=== PATIENT | female | born 1940 | race African-American/Black ===

== ENCOUNTER 2021-05-18 14:44 | Emergency (ER) | payer MEDICARE, MEDICAID, SELFPAY ==
--- NOTE | ~2021-05-18 | CT_ITS ---
EXAMINATION: CT brain wo con DATE: 05/18/2021 15:39 INDICATION: Confusion. Head injury. TECHNIQUE: Computed tomography (CT) of the head was performed without intravenous contrast. The mA wa s adjusted according to patient size. Iterative reconstruction technique was employed. The dose-lengt h product was 605.33 mGy-cm. COMPARISON: None FINDINGS: There are scattered areas of low attenuation in the cerebral white matter. There is no intr acranial hemorrhage, acute infarction, or abnormal intracranial mass lesion. The ventricles are sang l in size. There are likely changes of ocular lens replacement surgeries. There is right frontal scal p soft tissue swelling. IMPRESSION: 1. Mild nonspecific cerebral white matter disease, which likely represents chronic small vessel ische yen disease. Reviewed, dictated and finalized at location A. PERSON IMPRESSION: 1. Mild nonspecific cerebral white matter disease, which likely represents chronic specialist blaze small vessel ischemic disease.
--- NOTE | ~2021-05-18 | CT_ITS ---
EXAMINATION: CT cervical spine wo con EXAM DATE: 05/18/2021 15:39 INDICATION: fall, altered mental status . TECHNIQUE: Spiral CT of the cervical spine was performed without contrast. Axial images were reviewe d. Coronal and sagittal reformatted images cervical spine were also reviewed. The dose-length produc t (DLP) for this examination was 362.89 mGy-cm. The exposure was tailored according to patient size (auto mA exposure control), and iterative reconstruction (ASIR) was used as additional dose reduction technique. There is no prior study for comparison. FINDINGS: Lung apices are clear. There is no evidence of acute cervical fracture. The odontoid proce ss is intact. Pre-dens space is normal. Prevertebral soft tissue is normal. There are no soft tiss ue abnormalities identified. There is no disc space widening or traumatic vertebral body subluxation suspected. There is moderate to severe cervical disc disease, overall moderate arthropathy. A deta iled level by level evaluation of spondylosis can be added as addendum if requested. IMPRESSION: 1. No acute cervical fracture. 2. Spondylosis. Reviewed, dictated and finalized at location A. USSION INSTRUMENT REPAIRER
--- NOTE | ~2021-05-18 | XR_ITS ---
EXAMINATION: XR chest 1V EXAM DATE: 05/18/2021 15:41 INDICATION: Transient alteration of awareness. TECHNIQUE: Portable AP frontal chest x-ray was obtained. There is no prior study for comparison. FINDINGS: The lungs are clear. There are no pleural effusions. Cardiac silhouette is prominent but magnified on this AP technique. There is no pneumothorax suspected. The bones and soft tissues are unremarkable. IMPRESSION: No acute cardiopulmonary findings. Reviewed, dictated and finalized at location A. ANGE SPECIALIST
[2021-05-18 14:42] VITALS: BP 153/74; PULSE 62; RESP 16; TEMP 36.6; O2SAT 100
[2021-05-18 15:01] VITALS: BP 153/60; PULSE 59; RESP 11; O2SAT 100
--- NOTE | 2021-05-18 15:17 | ECG_ITS ---
Measurements Intervals [place] Rate: 61 P: 66 CO: 235 QRS: -27 QRSD: 154 T: 71 QT: 472 QTc: 477 Interpretive Statements SINUS RHYTHM WITH FIRST DEGREE AV BLOCK RIGHT BUNDLE BRANCH BLOCK POSSIBLE LEFT VENTRICULAR HYPERTROPHY MINIMAL Q WAVES- ANTERIOR LEADS HIGH LATERAL INFARCT, AGE INDETERMINATE BASELINE ARTIFACT- I, V6 ABNORMAL ECG Electronically Signed On 05-18-2021 16:10:19 LEVEL VIAL GRINDER by Jose Guadalupe Camilo D.O.
--- NOTE | 2021-05-18 15:34 | ED.FALL ---
HPI - Fall General Chief Complaint: Fall Stated Complaint: fall Time Seen by Provider: 05/18/21 15:07 Source: EMS Mode of arrival: EMS Limitations: dementia History of Present Illness HPI Narrative: This is a 80 year old female who presents from care home for evaluation of an unwitnessed fall. Patient was found with mid forehead hematoma at care home. EMS reports patient is at her baseline. Patien is oriented to person. She denies any complaints. Related Data Allergies Allergy/AdvReac Type Severity Reaction Status Date / Time Sulfa (Sulfonamide Allergy Unknown Verified 05/18/21 17:09 Antibiotics) Review of Systems Review of Systems: All systems reviewed & are unremarkable except as noted in HPI and below [facility] Past Medical History Medical History (Updated 05/18/21 @ 18:15 by Mari Sanders MD) Anxiety Chronic diastolic heart failure Chronic kidney disease Dementia GERD (gastroesophageal reflux disease) Glaucoma Hyperlipidemia Hypertension Exam Const: General: alert Other: oriented to person and place HENMT: Head: normocephalic and other (small bump midforehead) Ears: external ears normal Face and sinus: normal facial exam, sinuses nontender and face symmetric Mouth: Yes moist mucous membranes and Yes other (large tongue but does not seem edematous) Teeth and gingiva: edentulous Throat: uvula midline Eyes: Pupils: Equal, round and reactive pupils present EOM: EOMs intact bilaterally Resp: Effort & Inspection: normal respiratory effort and no retractions Auscultation: clear to auscultation bilaterally Cardio: Rate: regular rate Rhythm: regular rhythm Heart sounds: no murmurs GI: GI Palp: Yes Soft to palpation, No Tenderness to palpation present (GI) and No Guarding due to palpation present (GI) Auscultation: normal bowel sounds Neuro: General: moves all extremities, no meningeal signs and CN's II-XI intact bilaterally Extrem: General: normal to inspection Psych: Mental Status: mental status grossly normal Affect: normal affect Course Reevaluation(s) Reevaluation #1: Patient is at baseline per EMS. Patient will be discharged Date: 05/18/21 Time: 18:13 Vital Signs Vital signs: Vital Signs Temperature 97.8 F 05/18/21 14:42 Pulse Rate 62 05/18/21 14:42 Respiratory Rate 16 05/18/21 14:42 Blood Pressure 153/74 H 05/18/21 14:42 Pulse Oximetry 100 05/18/21 14:42 Temperature 97.8 F 05/18/21 14:42 Pulse Rate 64 05/18/21 19:01 Respiratory Rate 18 05/18/21 19:01 Blood Pressure 180/80 H 05/18/21 19:01 Pulse Oximetry 98 05/18/21 19:01 MDM - Fall Lab Data Attestation: I reviewed the patient's lab results. Result diagrams: 05/18/21 15:30 05/18/21 15:30 Labs: Lab Results 05/18/21 05/18/21 05/18/21 Range/Units 15:28 15:30 15:30 WBC 4.2 L (4.5-10.0) K/mm3 RBC 3.09 L (4.2-5.4) M/mm3 Hgb 9.3 L (12.0-15.0) g/dL Hct 28.6 L (37.0-47.0) % MCV 92.6 (80-100) fl MCH 30.1 (26-34) pg MCHC 32.5 (32-36) g/dl RDW 15.9 H (11.5-14.5) % Plt Count 132 L (150-375) k/mm3 MPV 11.3 H (7.4-10.4) fl Immature Gran % (Auto) 0.2 (0-0.5) % Neut % (Auto) 55.3 (45.5-73.1) % Lymph % (Auto) 36.2 (18.3-44.2) % [place] % (Auto) 5.7 (2.6-8.5) % Eos % (Auto) 2.4 (0-4.4) % Baso % (Auto) 0.2 (0.2-1.2) % Lymph # (Auto) 1.52 (0.9-3.2) K/mm3 [place] # (Auto) 0.2 (0.1-0.6) K/mm3 Eos # (Auto) 0.1 (0-0.3) K/mm3 Baso # (Auto) 0.0 (0.0-0.1) K/mm3 Abs Immat Gran (auto) 0.01 (0.00-0.031) K/mm3 Absolute Neuts (auto) 2.3 (1.3-6.7) K/mm3 Absolute Nucleated RBC 0.0 (0.0-0.012) K/mm3 Nucleated RBC % 0.0 (0.0-0.2) % % Immature Plt Fraction 2.5 (0.9-11.2) % PT 13.4 (11.1-14.7) Seconds INR 1.0 APTT 34.5 (22.3-36.8) SECONDS Methemoglobin 0.2 (0-1.5) %THb Sodium (137-145) mmol/L Potassium (3.4-5.0
[2021-05-18 15:40] LABS: Basophils Percent Auto 0.2 % (0.2-1.2); Eosinophils Absolute Auto 0.1 K/mm3 (0-0.3); Eosinophils Percent Auto 2.4 % (0-4.4); Hematocrit 28.6 % (37.0-47.0); Hemoglobin 9.3 g/dL (12.0-15.0); Immature Granulocyte Absolute 0.01 K/mm3 (0.00-0.031); Immature Granulocyte Percent A 0.2 % (0-0.5); Immature Platelet Fraction Pct 2.5 % (0.9-11.2); Lymphocytes Absolute Auto 1.52 K/mm3 (0.9-3.2); Lymphocytes Percent Auto 36.2 % (18.3-44.2); Mean Corpuscular HGB Conc 32.5 g/dl (32-36); Mean Corpuscular Hemoglobin 30.1 pg (26-34); Mean Corpuscular Volume 92.6 fl (80-100); Mean Platelet Volume 11.3 fl (7.4-10.4); Monocytes Absolute Auto 0.2 K/mm3 (0.1-0.6); Monocytes Percent Auto 5.7 % (2.6-8.5); Neutrophils Absolute Auto 2.3 K/mm3 (1.3-6.7); Neutrophils Percent Auto 55.3 % (45.5-73.1); Platelet Count Result 132 k/mm3 (150-375); Red Blood Count 3.09 M/mm3 (4.2-5.4); Red Cell Distribution Width 15.9 % (11.5-14.5); White Blood Count 4.2 K/mm3 (4.5-10.0)
[2021-05-18 15:49] LABS: Base Excess ABG -2.8 mEq/l (+/-2.0); Carboxyhemoglobin 0.3 % THb (0-2.0); Fractional Inspired Oxygen 21 %; HCO3 ABG 23.2 mEq/l (22.0-26.0); Methemoglobin ABG 0.2 %THb (0-1.5); Oxygen Content ABG 13.7 %vol (16.0-22.0); Oxygen Saturation ABG 96.9 % (95.0-100.0); Oxyhemoglobin 95.3 % THb (90.0-100.0); PCO2 ABG 45.5 mmHg (35.0-45.0); PO2 ABG 97.6 mmHg (80.0-100.0); PO2 FiO2 Ratio Arterial Blood 4.65 %; Reduced Hemoglobin 4.2 %THb (0-5.0); Total Hemoglobin 10.1 g/dL (12.0-18.0); pH ABG 7.326 (7.350-7.450)
[2021-05-18 15:50] LABS: Site Drawn RIGHT RADIAL
[2021-05-18 15:51] LABS: Device ROOM AIR; Modified Allen's Test Pass
[2021-05-18 15:53] LABS: Prothrombin Time 13.4 Seconds (11.1-14.7)
[2021-05-18 15:54] LABS: Partial Thromboplastin Time 34.5 SECONDS (22.3-36.8)
[2021-05-18 16:01] LABS: Alanine Aminotransferase 22 U/L (4-35); Albumin Level 3.7 g/dL (3.5-5.1); Alkaline Phosphatase 153 U/L (38-126); Anion Gap 7 mmol/L (8-16); Aspartate Amino Transferase 29 U/L (14-36); Bilirubin,Total 0.3 mg/dL (0.2-1.3); Blood Urea Nitrogen 21 mg/dL (7-17); Calcium 9.2 mg/dL (8.4-10.2); Carbon Dioxide 24 mmol/L (22-30); Chloride 110 mmol/L (98-107); Estimated CRCL calculation 24 ml/min; Estimated Glomerular Filt Rate 35; Glucose 107 mg/dL (65-110); Potassium 4.5 mmol/L (3.4-5.0); Sodium 141 mmol/L (137-145)
[2021-05-18 16:05] LABS: Glucose Point of Care 83 mg/dl (65-105)
[2021-05-18 16:21] LABS: Add Urine Microscopic? YES; Appearance Urine Clear (Clear); Bilirubin Urine Negative (Negative); Blood Urine Negative (Negative); Color Urine Yellow (Yellow); Glucose Urine UA Negative (Negative); Ketones Urine Negative (Negative); Leukocyte Esterase Ur Negative LEU/UL (Negative); Mucus Urine Rare /lpf; Nitrate Urine Negative (Negative); Protein Urine 2+ mg/dL (Negative); RBC Urine 0-2 /hpf (0-2); Specific Grav Ur 1.012 (1.001-1.035); Urobilinogen Urine Negative mg/dL (<2.0); WBC Urine 0-3 /hpf
[2021-05-18] MEDS: SODIUM CHLORIDE 0.9% IV 500 ML 999 ML IV CONT (17:07)
[2021-05-18 18:01] VITALS: BP 185/80; PULSE 60; RESP 15; O2SAT 100
[2021-05-18 19:01] VITALS: BP 180/80; PULSE 64; RESP 18; O2SAT 98
== END 2021-05-18 19:04 ==
PROVIDERS: Emergency Provider General Practice; PCP Internal Medicine
DX: S00.83XA Contusion of other part of head, initial encounter (principal); I13.0 Hypertensive heart and chronic kidney disease with heart failure and stage 1 through stage 4 chronic kidney disease, or unspecified chronic kidney disease; N18.9 Chronic kidney disease, unspecified; I50.32 Chronic diastolic (congestive) heart failure; F03.90 Unspecified dementia, unspecified severity, without behavioral disturbance, psychotic disturbance, mood disturbance, and anxiety; E78.5 Hyperlipidemia, unspecified; K21.9 Gastro-esophageal reflux disease without esophagitis; R90.82 White matter disease, unspecified; M47.812 Spondylosis without myelopathy or radiculopathy, cervical region; W19.XXXA Unspecified fall, initial encounter; I44.0 Atrioventricular block, first degree; I45.10 Unspecified right bundle-branch block; R94.31 Abnormal electrocardiogram [ECG] [EKG]
CPT/HCPCS: 36415; 36600; 70450; 71045; 72125; 80053; 81001; 82375; 82805; 82948; 83050; 83735; 85025; 85055; 85610; 85730; 93005; 96360; 99284; J7040

== ENCOUNTER 2021-11-05 06:22 | Emergency (ER) | payer MEDICARE, MEDICAID, SELFPAY ==
[2021-11-05 06:29] VITALS: BP 159/77; PULSE 78; RESP 14; TEMP 36.9; O2SAT 100
--- NOTE | 2021-11-05 07:32 | ED.GENADULT ---
HPI - General Adult General Chief complaint: Unspecified Stated complaint: possible dehydration Time Seen by Provider: 11/05/21 06:48 History of Present Illness HPI narrative: 81-year-old female presenting to the emergency department from a local correction for evaluation of possible dehydration. Patient just recently completed antibiotics for urinary tract infection on 11/03. alf was concerned that the patient was dehydrated but was unable to give IV fluids. In report it was stated patient is nonverbal at baseline. Related Data Allergies Allergy/AdvReac Type Severity Reaction Status Date / Time Sulfa (Sulfonamide Allergy Unknown Verified 05/18/21 17:09 Antibiotics) Review of Systems Review of Systems: Patient is nonverbal at baseline ROS unobtainable: Yes unobtainable due to medical condition [facility] Past Medical History Medical History (Updated 11/05/21 @ 09:30 by Ananth Crowell MD) Anxiety Chronic diastolic heart failure Chronic kidney disease Dementia GERD (gastroesophageal reflux disease) Glaucoma Hyperlipidemia Hypertension Exam Narrative: APPEARANCE: Alert, no distress, well-nourished HEAD: normocephalic, atraumatic. EYES: PERRLA/EOMI, conjunctivae clear. NOSE: Normal no drainage EARS:TMS clear with good light reflex. THROAT: Pharynx clear, no exudate. NECK: Supple. No adenopathy, no masses. RESPIRATORY: Airway patent, respirations nonlabored. Clear to auscultation bilaterally, no rales, rhonchi, wheezing. CARDIOVASCULAR: Regular rate and rhythm without murmurs rubs or gallops. ABDOMINAL: Soft, nontender, nondistended, normal bowel sounds MUSCULOSKELETAL: Moves all extremities. Strength/ROM intact, No edema, No calf tenderness. NEURO: Alert. Cranial nerves II through XII intact. Grossly intact SKIN: Warm, dry. Normal Color Course Course Emergency Course: Patient is afebrile with no leukocytosis. UA is not consistent with a urinary tract infection. Patient's creatinine is 2.1 with a normal baseline of 1.7. Patient was treated with IV fluids. Patient will be discharged back to the nursing facility. Patient is at her neuro baseline and vitals are within normal limits. Vital Signs Vital signs: Vital Signs Temperature 98.4 F 11/05/21 06:29 Pulse Rate 78 11/05/21 06:29 Respiratory Rate 14 11/05/21 06:29 Blood Pressure 159/77 H 11/05/21 06:29 Pulse Oximetry 100 11/05/21 06:29 Oxygen Delivery Room Air 11/05/21 06:29 Temperature 98.4 F 11/05/21 06:29 Pulse Rate 78 11/05/21 09:16 Respiratory Rate 13 11/05/21 09:16 Blood Pressure 97/84 L 11/05/21 09:16 Pulse Oximetry 100 11/05/21 09:16 Oxygen Delivery Room Air 11/05/21 06:29 Medical Decision Making Vital Signs Vital Signs: Vital Signs Temperature 98.4 F 11/05/21 06:29 Pulse Rate 78 11/05/21 06:29 Respiratory Rate 14 11/05/21 06:29 Blood Pressure 159/77 H 11/05/21 06:29 Pulse Oximetry 100 11/05/21 06:29 Oxygen Delivery Room Air 11/05/21 06:29 Temperature 98.4 F 11/05/21 06:29 Pulse Rate 78 11/05/21 09:16 Respiratory Rate 13 11/05/21 09:16 Blood Pressure 97/84 L 11/05/21 09:16 Pulse Oximetry 100 11/05/21 09:16 Oxygen Delivery Room Air 11/05/21 06:29 Lab Data Lab results reviewed: Yes I reviewed the patient's lab results. Result diagrams: 11/05/21 07:08 11/05/21 07:43 Labs: Lab Results 11/05/21 11/05/21 11/05/21 Range/Units 07:08 07:26 07:43 WBC 3.9 L (4.5-10.0) K/mm3 RBC 3.14 L (4.2-5.4) M/mm3 Hgb 9.3 L (12.0-15.0) g/dL Hct 29.5 L (37.0-47.0) % MCV 93.9 (80-100) fl MCH 29.6 (26-34) pg MCHC 31.5 L (32-36) g/dl RDW 15.9 H (11.5-14.5) % Plt Count 151 (150-375) k/mm3 MPV 11.8 H (7.4-10.4) fl Immature Gran % (Auto) 0.3 (0-0.5) % Neut % (Auto) 48.8 (45.5-73.1) % Lymph % (Auto) 38.1 (18.3-44.2) % [place] % (Auto) 7.4 (2.6-8.5) % Eos
[2021-11-05 07:33] LABS: Basophils Percent Auto 0.5 % (0.2-1.2); Eosinophils Absolute Auto 0.2 K/mm3 (0-0.3); Eosinophils Percent Auto 4.9 % (0-4.4); Hematocrit 29.5 % (37.0-47.0); Hemoglobin 9.3 g/dL (12.0-15.0); Immature Granulocyte Absolute 0.01 K/mm3 (0.00-0.031); Immature Granulocyte Percent A 0.3 % (0-0.5); Lymphocytes Absolute Auto 1.49 K/mm3 (0.9-3.2); Lymphocytes Percent Auto 38.1 % (18.3-44.2); Mean Corpuscular HGB Conc 31.5 g/dl (32-36); Mean Corpuscular Hemoglobin 29.6 pg (26-34); Mean Corpuscular Volume 93.9 fl (80-100); Mean Platelet Volume 11.8 fl (7.4-10.4); Monocytes Absolute Auto 0.3 K/mm3 (0.1-0.6); Monocytes Percent Auto 7.4 % (2.6-8.5); Neutrophils Absolute Auto 1.9 K/mm3 (1.3-6.7); Neutrophils Percent Auto 48.8 % (45.5-73.1); Nucleated Red Blood Cells Perc 0.5 % (0.0-0.2); Platelet Count Result 151 k/mm3 (150-375); Red Blood Count 3.14 M/mm3 (4.2-5.4); Red Cell Distribution Width 15.9 % (11.5-14.5); White Blood Count 3.9 K/mm3 (4.5-10.0)
[2021-11-05 07:41] LABS: Lactic Acid Reflex 0.7 mmol/L (0.7-2.0)
[2021-11-05] MEDS: SODIUM CHLORIDE 0.9% IV 500 ML 999 ML IV CONT (07:42)
[2021-11-05 07:44] VITALS: PULSE 81
[2021-11-05 07:46] VITALS: BP 188/94; PULSE 79; RESP 16; O2SAT 100
[2021-11-05 08:05] LABS: Add Urine Microscopic? YES; Appearance Urine Clear (Clear); Bilirubin Urine Negative (Negative); Blood Urine Negative (Negative); Color Urine Yellow (Yellow); Glucose Urine UA Negative (Negative); Ketones Urine Negative (Negative); Leukocyte Esterase Ur Negative LEU/UL (Negative); Nitrate Urine Negative (Negative); Protein Urine 3+ mg/dL (Negative); Specific Grav Ur 1.025 (1.001-1.035); Urobilinogen Urine 0.2 mg/dL (<2.0)
[2021-11-05 08:10] LABS: Alanine Aminotransferase 13 U/L (6-35); Albumin Level 3.6 g/dL (3.5-5.1); Alkaline Phosphatase 148 U/L (38-126); Anion Gap 3 mmol/L (8-16); Aspartate Amino Transferase 26 U/L (14-36); Bilirubin,Total 0.2 mg/dL (0.2-1.3); Blood Urea Nitrogen 23 mg/dL (7-17); Calcium 9.5 mg/dL (8.4-10.2); Carbon Dioxide 25 mmol/L (22-30); Chloride 115 mmol/L (98-107); Estimated CRCL calculation 22 ml/min; Estimated Glomerular Filt Rate 28; Glucose 67 mg/dL (65-110); Sodium 143 mmol/L (137-145)
[2021-11-05 08:21] LABS: RBC Urine 0-2 /hpf (0-2); Squamous Epithelial Cell Urine Rare /hpf (Few); WBC Urine 0-3 /hpf
[2021-11-05 09:16] VITALS: BP 97/84; PULSE 78; RESP 13; O2SAT 100
[2021-11-05 10:30] VITALS: BP 140/64; PULSE 79; RESP 17; O2SAT 98
== END 2021-11-05 12:36 ==
PROVIDERS: Emergency Provider Emergency Medicine; PCP Internal Medicine
DX: E86.0 Dehydration (principal); I13.0 Hypertensive heart and chronic kidney disease with heart failure and stage 1 through stage 4 chronic kidney disease, or unspecified chronic kidney disease; N18.9 Chronic kidney disease, unspecified; I50.32 Chronic diastolic (congestive) heart failure; F03.90 Unspecified dementia, unspecified severity, without behavioral disturbance, psychotic disturbance, mood disturbance, and anxiety; H40.9 Unspecified glaucoma; E78.5 Hyperlipidemia, unspecified
CPT/HCPCS: 36415; 51701; 80053; 81001; 83605; 85025; 96360; 99283; J7040

== ENCOUNTER 2021-11-22 12:24 | Inpatient (IN) | payer MEDICARE, MEDICAID, SELFPAY ==
[2021-11-22] VITALS (43 sets, daily range): BP systolic 160–188; BP diastolic 56–128; PULSE 53–75; RESP 3–20; TEMP 35.8; O2SAT 96–100
--- NOTE | ~2021-11-22 | MR_ITS ---
EXAMINATION: MR brain/brain stem wo con DATE: 11/23/2021 09:30 INDICATION: Altered mental status. TECHNIQUE: Magnetic resonance imaging (MRI) of the brain and brainstem was performed without intraven ous contrast. COMPARISON: Head CT 11/22/2021 FINDINGS: There is no intracranial hemorrhage, acute infarction, or abnormal intracranial mass lesion . There are scattered areas of nonspecific increased T2-weighted signal intensity in the cerebral whi te matter. The ventricles are normal in size. There are bilateral mastoid effusions. There is mucosal thickening in the mucosal paranasal sinuses. There is a left frontal scalp hematoma. There are likel y changes of ocular lens replacement surgeries. IMPRESSION: 1. Moderate nonspecific cerebral white matter disease, which likely represents chronic small vessel i schemic disease. Reviewed, dictated and finalized at location A. IMPRESSION: 1. Moderate nonspecific cerebral white matter disease, which likely represents chronic small vessel ischemic disease.
--- NOTE | ~2021-11-22 | CT_ITS ---
EXAMINATION: CT brain wo con DATE: 11/22/2021 14:58 INDICATION: Decreased mental status. Head injury. TECHNIQUE: Computed tomography (CT) of the head was performed without intravenous contrast. The mA wa s adjusted according to patient size. Iterative reconstruction technique was employed. The dose-lengt h product was 605.33 mGy-cm. COMPARISON: Head CT 05/18/21 FINDINGS: There is no intracranial hemorrhage, acute infarction, or abnormal intracranial mass lesion . There are scattered areas of low attenuation in the cerebral white matter. The ventricles are sang l in size. There is a frontal scalp hematoma. There are likely changes of ocular lens replacement lela geries. There is mild mucosal thickening in the paranasal sinuses. There are bilateral mastoid effusi ons. IMPRESSION: 1. Stable mild nonspecific cerebral white matter disease, which likely represents chronic small vesse l ischemic disease. Reviewed, dictated and finalized at location A. IMPRESSION: 1. Stable mild nonspecific cerebral white matter disease, which likely represen ts chronic small vessel ischemic disease.
--- NOTE | ~2021-11-22 | CT_ITS ---
EXAMINATION: CT cervical spine wo con DATE: 11/22/2021 14:58 INDICATION: Head injury. TECHNIQUE: Computed tomography (CT) of the cervical spine was performed without intravenous contrast. Automated exposure control and iterative reconstruction technique were employed. The dose-length pro duct was 438.58 mGy-cm. COMPARISON: CT cervical spine 05/18/2021 FINDINGS: There is 6 degrees levocurvature of cervical spine. There is 2 mm retrolisthesis of C3 on C 4 and C5 on C6. Vertebral body heights are normal. There is severely decreased disc height from C2-C3 through C6-C7. The following disc levels are specifically discussed: C2-C3: There is mild bilateral uncovertebral joint osteoarthritis. There is severe bilateral facet elvira int osteoarthritis. There is mild bilateral neural foraminal stenosis. There is mild central canal st enosis. C3-C4: There is severe bilateral uncovertebral joint osteoarthritis. There is mild bilateral facet elvira int osteoarthritis. There is mild bilateral neural foraminal stenosis. There is mild central canal st enosis. C4-C5: There is moderate right and severe left uncovertebral joint osteoarthritis. There is moderate bilateral facet joint osteoarthritis. There is mild left neural foraminal stenosis. There is mild francisco tral canal stenosis. C5-C6: There is severe bilateral uncovertebral joint osteoarthritis. There is moderate right and mild left facet joint osteoarthritis. There is mild bilateral neural foraminal stenosis. There is mild ce ntral canal stenosis. C6-C7: There is severe bilateral uncovertebral joint osteoarthritis. There is severe bilateral facet joint osteoarthritis. There is mild bilateral neural foraminal stenosis. There is mild central canal stenosis. C7-T1: There is no uncovertebral joint osteoarthritis. There is mild bilateral facet joint osteoarthr itis. There is no neural foraminal stenosis. There is no central canal stenosis. IMPRESSION: 1. No fracture. 2. Severe cervical spondylosis. Reviewed, dictated and finalized at location A.
--- NOTE | ~2021-11-22 | XR_ITS ---
EXAMINATION: XR chest 1V portable DATE: 11/22/2021 14:51 INDICATION: Lethargy. Left-sided facial droop. TECHNIQUE: frontal view of the chest was obtained. COMPARISON: Chest radiograph dated 05/18/2021 FINDINGS: The lungs are clear with no focal airspace opacities, pulmonary edema, pleural effusion or pneumothor ax. The cardiomediastinal silhouette is normal. Moderate osteoarthritis at the bilateral glenohumeral joints. IMPRESSION: 1. No acute cardiopulmonary disease. Reviewed, dictated and finalized at location B.
--- NOTE | 2021-11-22 12:26 | ECG_ITS ---
Measurements Intervals [place] Rate: 60 P: 105 [place]: 226 QRS: 210 QRSD: 154 T: 108 QT: 476 QTc: 476 Interpretive Statements SINUS RHYTHM WITH FIRST DEGREE AV BLOCK LIMB LEAD REVERSAL RIGHT BUNDLE BRANCH BLOCK ABNORMAL ECG Electronically Signed On 11-22-2021 13:00:39 CDT by Jose Guadalupe Camilo D.O.
--- NOTE | 2021-11-22 13:00 | ED.AMS ---
HPI - Altered Mental Status General Chief Complaint: Altered Mental Status Stated Complaint: lethargic, cant wake up, behavioral changes, ams Time Seen by Provider: 11/22/21 12:36 Source: EMS, RN notes reviewed and old records reviewed Mode of arrival: EMS Limitations: clinical condition History of Present Illness HPI narrative: This is a 81 year old female who presents from nursing for lethargy. Nursing reports patient fell last week but she had CT brain to assess her fall and it was negative. PAtient is also being treated for UTI. She states EMS reports patient can't wake up and lethargic for 2 days. Patient is reportedly normally talkative and her behavior has been different for 2 days. Patient able to wake and tell name to nurse. Related Data Home Medications Medication Instructions Recorded Confirmed carvedilol 3.125 mg tablet 3.125 tablet PO DAILY 11/22/21 11/22/21 Allergies Allergy/AdvReac Type Severity Reaction Status Date / Time Sulfa (Sulfonamide Allergy Unknown Verified 11/22/21 13:09 Antibiotics) Review of Systems Review of Systems: ROS unobtainable: Yes unobtainable due to medical condition [facility] Past Medical History Medical History Anxiety Chronic diastolic heart failure Chronic kidney disease Dementia GERD (gastroesophageal reflux disease) Glaucoma Hyperlipidemia Hypertension Social History Social History Smoking status: Never smoker Second hand tobacco smoke exposure: No Alcohol intake: never Substance use: never Substance use type: does not use Spiritual care concerns: No Comments unknown surgical , family or social history Exam Const: Nutritional Appearance: obese Limitations: altered mental status HENMT: Head: hematoma left frontal Mouth: Yes lip normal and Yes moist mucous membranes Other: bilateral cheek bruising, left for Eyes: Conjunctivae: conjunctivae normal Pupils: Equal, round and reactive pupils present Neck: Neck: no lymphadenopathy Resp: Effort & Inspection: normal respiratory effort Auscultation: clear to auscultation bilaterally Cardio: Rate: regular rate Rhythm: regular rhythm Heart sounds: no murmurs GI: GI Palp: Yes Soft to palpation, No Tenderness to palpation present (GI) and No Guarding due to palpation present (GI) Auscultation: normal bowel sounds Skin: General skin exam: normal color Neuro: Other: patient will follow some commands, she will move left leg on command. Course Reevaluation(s) Reevaluation #1: Patient has been sleeping entire visit. No significant abnormalities found on labs. It is unclear if patient is altered due to medication or if she had stroke. Elsa Lino accepts for observation. Date: 11/22/21 Time: 22:17 Vital Signs Vital signs: Vital Signs Pulse Rate 62 11/22/21 12:27 Respiratory Rate 13 11/22/21 12:27 Blood Pressure 175/61 H 11/22/21 12:27 Pulse Oximetry 96 11/22/21 12:27 Oxygen Delivery Room Air 11/22/21 12:27 Pulse Rate 66 11/22/21 19:34 Respiratory Rate 8 L 11/22/21 19:34 Blood Pressure 188/62 H 11/22/21 19:02 Pulse Oximetry 100 11/22/21 19:34 Oxygen Delivery Room Air 11/22/21 12:27 MDM - Altered Mental Status Medical Records Attestation: I reviewed the patient's medical records. Lab Data Attestation: I reviewed the patient's lab results. Result diagrams: 11/22/21 13:27 11/22/21 13:28 Labs: Lab Results 11/22/21 11/22/21 11/22/21 Range/Units 13:02 13:12 13:12 WBC (4.5-10.0) K/mm3 RBC (4.2-5.4) M/mm3 Hgb (12.0-15.0) g/dL Hct (37.0-47.0) % MCV (80-100) fl MCH (26-34) pg MCHC (32-36) g/dl RDW (11.5-14.5) % Plt Count (150-375) k/mm3 MPV (7.4-10.4) fl Immature Gran % (Auto) (0-0.5) % Neut % (Auto) (45.5-73.1) % Lymph % (Auto) (18.3-44.2) % [place] % (Auto) (
[2021-11-22 13:07] LABS: Base Excess ABG -0.8 mEq/l (+/-2.0); Carboxyhemoglobin 0.2 % THb (0-2.0); Fractional Inspired Oxygen 21 %; HCO3 ABG 24.6 mEq/l (22.0-26.0); Methemoglobin ABG 0.1 %THb (0-1.5); Oxygen Content ABG 12.3 %vol (16.0-22.0); Oxygen Saturation ABG 97.3 % (95.0-100.0); Oxyhemoglobin 95.9 % THb (90.0-100.0); PCO2 ABG 44.2 mmHg (35.0-45.0); PO2 ABG 99.8 mmHg (80.0-100.0); PO2 FiO2 Ratio Arterial Blood 4.75 %; Reduced Hemoglobin 3.8 %THb (0-5.0); pH ABG 7.364 (7.350-7.450)
[2021-11-22 13:08] LABS: Device ROOM AIR; Modified Allen's Test Pass; Site Drawn RIGHT RADIAL
--- NOTE | 2021-11-22 13:20 | PC.NURSE ---
IV attempted x2, unable to obtain. Nurse to bedside for US guidance IV attempt.
[2021-11-22 13:36] LABS: Appearance Urine Clear (Clear); Bilirubin Urine Negative (Negative); Color Urine Yellow (Yellow); Glucose Urine UA Negative (Negative); Ketones Urine Negative (Negative); Leukocyte Esterase Ur Negative LEU/UL (Negative); Nitrate Urine Negative (Negative); Protein Urine 3+ mg/dL (Negative); Urobilinogen Urine 0.2 mg/dL (<2.0)
[2021-11-22 13:42] LABS: Basophils Percent Auto 0.4 % (0.2-1.2); Eosinophils Absolute Auto 0.1 K/mm3 (0-0.3); Eosinophils Percent Auto 2.2 % (0-4.4); Hematocrit 29.6 % (37.0-47.0); Hemoglobin 9.3 g/dL (12.0-15.0); Immature Granulocyte Absolute 0.02 K/mm3 (0.00-0.031); Immature Granulocyte Percent A 0.4 % (0-0.5); Lymphocytes Absolute Auto 1.39 K/mm3 (0.9-3.2); Lymphocytes Percent Auto 25.4 % (18.3-44.2); Mean Corpuscular HGB Conc 31.4 g/dl (32-36); Mean Corpuscular Volume 95.5 fl (80-100); Mean Platelet Volume 10.8 fl (7.4-10.4); Monocytes Absolute Auto 0.3 K/mm3 (0.1-0.6); Monocytes Percent Auto 5.3 % (2.6-8.5); Neutrophils Absolute Auto 3.6 K/mm3 (1.3-6.7); Neutrophils Percent Auto 66.3 % (45.5-73.1); Nucleated Red Blood Cells Perc 0.4 % (0.0-0.2); Platelet Count Result 158 k/mm3 (150-375); Red Cell Distribution Width 17.4 % (11.5-14.5); White Blood Count 5.5 K/mm3 (4.5-10.0)
[2021-11-22 13:44] LABS: Mucus Urine Rare /lpf; Squamous Epithelial Cell Urine Many /hpf (Few)
[2021-11-22 13:46] LABS: Add Urine Microscopic? YES; Blood Urine Trace-Intact (Negative)
[2021-11-22 13:53] LABS: INR 1.1; Prothrombin Time 13.3 Seconds (11.1-14.7)
[2021-11-22 13:54] LABS: Lactic Acid Reflex 0.9 mmol/L (0.7-2.0)
[2021-11-22 13:54] LABS: Alanine Aminotransferase 12 U/L (6-35); Albumin Level 3.7 g/dL (3.5-5.1); Alkaline Phosphatase 157 U/L (38-126); Anion Gap 2 mmol/L (8-16); Aspartate Amino Transferase 26 U/L (14-36); Bilirubin,Total 0.4 mg/dL (0.2-1.3); Blood Urea Nitrogen 17 mg/dL (7-17); Calcium 9.5 mg/dL (8.4-10.2); Carbon Dioxide 29 mmol/L (22-30); Chloride 113 mmol/L (98-107); Estimated CRCL calculation 22 ml/min; Estimated Glomerular Filt Rate 29; Glucose 92 mg/dL (65-110); Partial Thromboplastin Time 39.6 SECONDS (22.3-36.8); Potassium 4.6 mmol/L (3.4-5.0); Sodium 144 mmol/L (137-145)
[2021-11-22 13:56] LABS: Amphetamine Screen Urine Negative (Negative); Barbiturate Screen Urine Negative (Negative); Benzodiazepines Screen Urine Negative (Negative); Cannabinoid Screen Urine Negative (Negative); Cocaine Screen Urine Negative (Negative); Methadone Screen Urine Negative (Negative); Opiate Screen Urine Negative (Negative); Phencyclidine Screen Urine Negative (Negative)
[2021-11-22 14:01] LABS: Ammonia < 9 umol/L (9-30)
[2021-11-22 14:05] LABS: Troponin I < 0.012 ng/mL (0.000-0.034)
[2021-11-22 14:12] LABS: SARS-CoV-2 RNA PCR Negative
--- NOTE | 2021-11-22 18:42 | PM.IMHP ---
H&P: HPI History of Present Illness Date/Time: 11/22/21 1726 Chief Complaint: Altered Mental Status Narrative: This 81-year-old female patient with significant past medical history of dementia, GERD, hyperlipidemia, hypertension, chronic kidney disease, chronic diastolic heart failure, anxiety who resides at a local [facility], is brought to the emergency room today secondary to a change in her mental status. According to the nursing staff the patient is usually alert and regularly Easy to awaken. Today they note that she is difficult to awaken and she is not acting herself. Previous history shows that patient was here on November 05, 2021 secondary to a fall that she sustained at the [facility]. It is reported that at that time workup was negative for any acute findings including CT of the brain, but I do not see where patient had CT performed at our facility. She was seen here at our facility on November 03, 2021 after the [facility] was concerned that the patient may be dehydrated and needed IV fluids. In the ED note of that date is noted that patient is nonverbal at baseline. She was hydrated and discharged back to her [facility]. ED provider states that patient is also being treated for UTI, however I do not see any previous visits for evaluation of UTI nor was it found when patient was here on 11/05/2021. Patient appears comfortable at this time and in no acute distress. As stated in previous ER visit notes patient is nonverbal and does not make any attempt to speak when asked questions. ER workup this evening consisted of CT of the cervical spine that revealed no fracture, however there is severe cervical spondylosis. CT of the head demonstrates stable, mild nonspecific cerebral white matter disease likely representing chronic small vessel ischemic disease. Chest x-ray demonstrates no acute cardiopulmonary disease. Patient has a stable CBC, coags and normal blood gas. She does have a mildly elevated creatinine of 2.0 which is slightly above her baseline of 1.6. Her ammonia and troponin are normal at this time. Urine tox and COVID testing are negative. She does not appear to have an acute urinary tract infection via straight catheterization sample. Patient's vitals have been abnormal. She has remained sinus [place] to sinus rhythm with pulse in the 50s to 60s. Respiratory rate has been low ranging from 8 breaths per minute to 14. Her blood pressure has been stable during her time in ER, until 1730, when her DBP increased to 128. Hydralazine is ordered with parameters. Pt's code status as placed by ER physician is a DNR. patient has been admitted to hospitalist service for further evaluation of her altered mental status, neurological evaluation and IV fluid hydration for EVER. Review of Systems Review of Systems: ROS unobtainable: Yes unobtainable due to mental status (Non-verbal) Constitutional: Comments: Pt. does not appear to have any acute distress. [facility] Past Medical History Medical History Anxiety Chronic diastolic heart failure Chronic kidney disease Dementia GERD (gastroesophageal reflux disease) Glaucoma Hyperlipidemia Hypertension Meds Home Medications and Allergies Allergies Allergy/AdvReac Type Severity Reaction Status Date / Time Sulfa (Sulfonamide Allergy Unknown Verified 11/22/21 13:09 Antibiotics) Vital Signs Vital Signs - 24 hr 11/22/21 12:27 11/22/21 12:35 11/22/21 12:39 Pulse Rate 62 63 61 Respiratory Rate 13 11 L 12 Blood Pressure 175/61 H 175/61 H Pulse Oximetry 96 100 100 Oxygen Delivery Room Air 11/22/21 12:52 11/22/21 13:00 11/22/21 13:15 Pulse Rate 64 69 75 Respiratory Rate 13 15 12 Blood Pressure Pulse Oximetry 99 Oxygen Delivery 11/22/21 13:30 11/22/21 13:48 11/22/21 14:00 Pulse Rate 63 60 55 L Respiratory Rate 13 11 L 3 L Blood Pressure Pulse Oximetry 100 100 Oxygen
[2021-11-22] MEDS: hydrALAZINE HCL 20 MG/ML VIAL 10 MG IV PUSH (19:09)
[2021-11-22] MEDS: SODIUM CHLORIDE 0.9% IV 1,000 ML 100 ML IV CONT (20:35)
[2021-11-22 21:10] LABS: Glucose Point of Care 72 mg/dl (65-105)
[2021-11-22 21:12] LABS: Lactic Acid Reflex 0.7 mmol/L (0.7-2.0)
[2021-11-22 21:52] LABS: Procalcitonin 0.1 ng/mL
[2021-11-23] VITALS (8 sets, daily range): BP systolic 137–167; BP diastolic 57–71; PULSE 66–79; RESP 16–18; TEMP 35.7–36.9; O2SAT 97–100
--- NOTE | 2021-11-23 | ECHO_ITS ---
Patient Info Name: Pat Gil Age: 81 years : 1940 Gender: Female Ht: 65 in Wt: 186 lbs BSA: 2.00 m2 HR: 70 bpm BP: 167 / 60 mmHg Heart Rhythm: Sinus Rhythm Technical Quality: Good Exam Date: 11/23/2021 1:39 PM Exam Location: [facility] Pulmonary Patient Status: Inpatient Admit Date: 11/22/2021 Staff Ordering Physician: Gurpreet Hunter MD Drop Shipment Clerk: Kimberly Spain RDCS Attending Provider: Andrea Mendez MD Exam Type: CA echo doppler color flow Study Info Indications R01.1 - Cardiac murmur, unspecified Complete two-dimensional, color flow and Doppler transthoracic echocardiogram is performed. Summary 1. Complete two-dimensional, color flow and Doppler transthoracic echocardiogram is performed. 2. Left ventricular chamber dimension is normal. 3. Left ventricular systolic function is normal, estimated at 60-65%. 4. There is moderately increased left ventricular wall thickness. 5. The left ventricular diastolic function is grade I diastolic dysfunction. 6. Left atrial chamber dimension is moderately enlarged. 7. There is moderate aortic valve stenosis with a peak velocity of 321 cm/s, mean gradient of 23 mmHg, and aortic valve area of 1.1 cm2. 8. There is mild aortic valve regurgitation. 9. There is moderate mitral valve regurgitation. 10. There is mild tricuspid valve regurgitation. 11. Mild pulmonary hypertension, estimated pulmonary arterial systolic pressure is 35 mmHg. Left Ventricle Left ventricular chamber dimension is normal. Left ventricular systolic function is normal, estimated at 60-65%. There is moderately increased left ventricular wall thickness. The left ventricular diastolic function is grade I diastolic dysfunction. Right Ventricle Right ventricular chamber dimension is normal. Right ventricular systolic function is normal. Left Atria Left atrial chamber dimension is moderately enlarged. Right Atria Right atrial chamber dimension is normal. Aortic Valve The aortic valve is probable trileaflet. There is moderate aortic valve stenosis with a peak velocity of 321 cm/s, mean gradient of 23 mmHg, and aortic valve area of 1.1 cm2. There is mild aortic valve regurgitation. There is moderate aortic valve calcification. Pulmonic Valve The pulmonic valve is not well visualized. Mitral Valve The mitral valve has thickened leaflets. There is moderate mitral valve regurgitation. The mitral valve annulus is severely calcified. Tricuspid Valve The tricuspid valve leaflets are normal. There is mild tricuspid valve regurgitation. Mild pulmonary hypertension, estimated pulmonary arterial systolic pressure is 35 mmHg. Pericardium/Pleural The pericardium appears normal. There is no pericardial effusion. Inferior Vena Cava Normal inferior vena cava with no collapse upon inspiration consistent with elevated right atrial pressure, 10 mmHg. Aorta The aortic root size at the sinus of Valsalva is normal. There is mild-moderate aortic atherosclerosis. Left Ventricular Outflow Tract Name Value Normal LVOT 2D LVOT Diameter 2.0 cm LVOT Doppler LVOT Peak Gradient
[2021-11-23 07:56] LABS: Basophils Percent Auto 0.2 % (0.2-1.2); Eosinophils Absolute Auto 0.1 K/mm3 (0-0.3); Eosinophils Percent Auto 2.2 % (0-4.4); Hematocrit 24.1 % (37.0-47.0); Hemoglobin 7.9 g/dL (12.0-15.0); Immature Granulocyte Absolute 0.02 K/mm3 (0.00-0.031); Immature Granulocyte Percent A 0.4 % (0-0.5); Immature Platelet Fraction Pct 2.8 % (0.9-11.2); Lymphocytes Percent Auto 28.3 % (18.3-44.2); Mean Corpuscular HGB Conc 32.8 g/dl (32-36); Mean Corpuscular Hemoglobin 30.2 pg (26-34); Mean Platelet Volume 10.4 fl (7.4-10.4); Monocytes Absolute Auto 0.3 K/mm3 (0.1-0.6); Monocytes Percent Auto 7.4 % (2.6-8.5); Neutrophils Absolute Auto 2.8 K/mm3 (1.3-6.7); Neutrophils Percent Auto 61.5 % (45.5-73.1); Platelet Count Result 137 k/mm3 (150-375); Red Blood Count 2.62 M/mm3 (4.2-5.4); Red Cell Distribution Width 17.2 % (11.5-14.5); White Blood Count 4.6 K/mm3 (4.5-10.0)
[2021-11-23 08:18] LABS: Alanine Aminotransferase 10 U/L (6-35); Albumin Level 2.8 g/dL (3.5-5.1); Alkaline Phosphatase 133 U/L (38-126); Anion Gap 3 mmol/L (8-16); Aspartate Amino Transferase 19 U/L (14-36); Bilirubin,Total 0.3 mg/dL (0.2-1.3); Blood Urea Nitrogen 17 mg/dL (7-17); Calcium 8.7 mg/dL (8.4-10.2); Carbon Dioxide 23 mmol/L (22-30); Chloride 115 mmol/L (98-107); Creatine Kinase 63 U/L (30-135); Estimated CRCL calculation 25 ml/min; Estimated Glomerular Filt Rate 33; Glucose 78 mg/dL (65-110); Magnesium 1.9 mg/dL (1.6-2.3); Phosphorus 3.6 mg/dL (2.5-4.5); Potassium 4.3 mmol/L (3.4-5.0); Sodium 141 mmol/L (137-145)
[2021-11-23 09:23] LABS: Folic Acid 8.9 ng/mL (2.76->20)
[2021-11-23] MEDS: PANTOPRAZOLE SODIUM IV 40 MG VIAL IV PUSH (10:08)
[2021-11-23 12:04] LABS: Glucose Point of Care 81 mg/dl (65-105)
[2021-11-23 12:04] LABS: Glucose Point of Care 78 mg/dl (65-105)
--- NOTE | 2021-11-23 12:04 | PM.IMPN ---
Progress Note: A&P Assessment and Plan (1) Altered mental status: Code(s): R41.82 - Altered mental status, unspecified Status: Acute Assessment and Plan: Patient presents with altered mental status from the shelter. Presumably going on for past 2 days but family state patient has been sleeping much more over the past 2 weeks since her head injury. Chest x-ray clear. UA not consistent with UTI. Brain CT showing nonspecific Street white matter disease but no acute findings. Cervical spine CT shows severe cervical spondylosis but no fractures. Brain MRI shows moderate nonspecific cerebral white matter disease but no acute findings. Procalcitonin level is low. COVID is negative. Lactic acid is negative. B12, folate and TSH levels normal. Labs overall unrevealing to the etiology of her altered mental status. Suspect related to medication changes recently coupled with her traumatic brain injury and dementia She is showing signs of improvement. Continue to hold her medications. Will resume Haldol and Cogentin when she is more awake and alert. Consider adding back the Wellbutrin as well. Will continue to hold trazodone. Check Echo. Hold CTA since CrCl 25. Neurology consult. Start therapy Bladder scan (2) Traumatic brain injury: Code(s): S06.9X9A - Unspecified intracranial injury with loss of consciousness of unspecified duration, initial encounter Status: Acute Assessment and Plan: Patient had a fall with left-sided facial trauma. Suspect traumatic brain injury as a component of her altered mental status. Imaging studies as mentioned above. Start PT, OT and speech therapy. (3) Hypertension: Code(s): I10 - Essential (primary) hypertension Status: Acute Assessment and Plan: Blood pressure elevated on admission. On small dose of Coreg chronically. Hydralazine available as needed for markedly elevated blood pressure. Resume oral medications when able (4) Anemia: Code(s): D64.9 - Anemia, unspecified Status: Acute Assessment and Plan: Patient with chronic anemia with a hemoglobin in the 9 range probably related to her CKD Hemoglobin 9.3 on admission but dropped to 7.9 most likely related to IV fluids. B12 folate levels are normal. Will check iron studies Decrease IV fluid rate. (5) Chronic kidney disease: Code(s): N18.9 - Chronic kidney disease, unspecified Status: Acute Assessment and Plan: Baseline creatinine 1.7-2.0. Creatinine 2.0 on admission now 1.8. Suspect patient is within her baseline renal function. (6) Dementia: Code(s): F03.90 - Unspecified dementia without behavioral disturbance Status: Acute Assessment and Plan: Was likely contributing to her underlying neurologic changes. As above. Subjective Date/time seen: 11/23/21 12:04 Interval history: 81yo female with dementia with behavioral disorder, CKD, dCHF and HTN here for altered mental status. Patient arouses to voice. She opens her eyes. She nods yes and no when asked questions on occasion but not consistently. Daughter at the bedside. She states the trazodone started about 3 months ago. Haldol was increased from 5 mg daily to b.i.d. when patient was in the hospital 2 weeks ago. Patient is normally ?a night owl? but now has been sleeping throughout the day as well over the past 2 weeks. No other medication changes that the daughters is aware of. Review of Systems Review of Systems: ROS unobtainable: Yes unobtainable due to mental status Exam Narrative: AF 96.3 167/60 73 16 97% ra Gen - NARD HEENT -half dollar sized round elevated hematoma to left forehead with bruising noted about the face. Chest -lungs clear anteriorly. Normal respiratory CV - RRR S1/S2 with 2/6 systolic murmur USB. Telemetry showing no significant dysrhythmia Abd -soft. Nondistended. Tenderness in suprapubic region. Possible distended bladde
--- NOTE | 2021-11-23 12:20 | WPDNEURCNPN ---
Assessment and Plan Assessment and plan (1) Dementia: Code(s): F03.90 - Unspecified dementia without behavioral disturbance Status: Acute (2) Chronic kidney disease: Code(s): N18.9 - Chronic kidney disease, unspecified Status: Acute (3) Acute encephalopathy: Code(s): G93.40 - Encephalopathy, unspecified Status: Acute Plan ongoing history of chronic neurological deficit with dementia and new observation by the family left-sided motor deficit and decreasing the awareness ever since since she fell will need studies to rule out the possibility of the intracranial bleed subsequent to the fall and MRI has been done which revealed no evidence of territorial stroke or bleed cervical spine CT scan documents the cervical spondylosis but no spinal stenosis initial CT scan of the head in the emergency room was negative for the bleed the chest x-ray is negative for the acute parenchymal it is disease patient will need only medical evaluation and further discussion will made with the family if necessary will obtain the EEG Consult date: 11/23/21 Time Seen: 11:30 Reason for consult: change in the mental status HPI: Pat Gil is a 81 year old female admitted to the hospital through the emergency room complaints of change in the mental status and being lethargic with obvious behavioral changes she was sent to the emergency room from [facility] where reportedly she fell last week had a CT scan of the brain which was negative for intracranial bleed was treated for the urinary tract infection but EMS were unable to wake her up and she was reportedly lethargic for 48 hours normally she is very talkative and her behavior had change the last couple of days, patient had been taking carvedilol 3.125 mg daily she is reportedly allergic to sulfa, she has ongoing history of chronic renal disease, dementia, hyperlipidemia, attention, and chronic diastolic heart failure, she has never smoked or drinker initial vital signs were stable except the blood pressure 175/61 routine lab studies were normal with lactic acid 0.9 ammonia level less than 9 GFR only 29 chest x-ray negative CT scan the brain documented chronic small-vessel ischemic changes CT of the cervical spine documented cervical spondylosis and EKG revealed no atrial fibrillation he was admitted to the hospital with the diagnosis of acute encephalopathy Review of Systems Review of Systems: All systems reviewed & are unremarkable except as noted in HPI and below PMFSH Past Medical History Medical History (Updated 11/23/21 @ 12:17 by Gurpreet Hunter MD) Anxiety Chronic diastolic heart failure Chronic kidney disease Dementia GERD (gastroesophageal reflux disease) Glaucoma Hyperlipidemia Hypertension Social History Social History Smoking status: Never smoker Second hand tobacco smoke exposure: No Alcohol intake: never Substance use: never Substance use type: does not use Spiritual care concerns: No Meds Home Medications and Allergies Home Medications Medication Instructions Recorded Confirmed Type benztropine 1 mg tablet 1 mg PO DAILY 11/22/21 11/23/21 History brimonidine 0.1 % eye drops 1 drp EACH EYE DAILY Unspecified 11/22/21 11/23/21 History (Alphagan P) Glaucoma bupropion HCl 200 mg tablet,12 hr 200 tablet PO DAILY 11/22/21 11/23/21 History sustained-release carvedilol 3.125 mg tablet 3.125 tablet PO BID 11/22/21 11/23/21 History dorzolamide 22.3 mg-timolol 6.8 1 drp EACH EYE DAILY 11/22/21 11/23/21 History mg/mL eye drops famotidine 20 mg tablet 20 mg BID 11/22/21 11/23/21 History haloperidol 5 mg tablet 5 mg PO DAILY 11/22/21 11/23/21 History levofloxacin 500 mg tablet 500 mg DAILY 11/22/21 11/23/21 History lorazepam 0.5 mg tablet 0.5 mg PO TID PRN Anxiety 11/22/21 11/23/21 History ondansetron HCl 4 mg tablet 4 mg PO Q6H PRN Nausea And Vomiting 11/22/21 11/23/21 History pravastatin 20 mg tablet 20 mg PO DAILY 11/22/21 0
[2021-11-23] MEDS: SODIUM CHLORIDE 0.9% IV 1,000 ML 70 ML IV CONT (12:43)
[2021-11-23] MEDS: DORZOLAMIDE/TIMOLOL OPHTH SOL 10 ML BOTTLE 1 DROP EACH EYE (12:56)
[2021-11-23] MEDS: BRIMONIDINE TARTRATE 0.1% 5 ML OPHTH DROPS 1 DROP EACH EYE (12:56)
--- NOTE | 2021-11-23 13:19 | PCOTNOTE ---
Attempted OT evaluation, patient is unable to follow commands at this time, will attempt at later time.
--- NOTE | 2021-11-23 13:26 | PCPTNOTE ---
Attempted PT evaluation, patient is unable to follow commands at this time, will attempt at later time.
[2021-11-23 16:55] LABS: Glucose Point of Care 68 mg/dl (65-105)
[2021-11-23 20:44] LABS: Glucose Point of Care 117 mg/dl (65-105)
[2021-11-24] VITALS (9 sets, daily range): BP systolic 154–186; BP diastolic 47–63; PULSE 62–75; RESP 16–20; TEMP 36.1–36.7; O2SAT 98–100
[2021-11-24] MEDS: SODIUM CHLORIDE 0.9% IV 1,000 ML 70 ML IV CONT ×2 (02:02→16:46)
[2021-11-24 06:42] LABS: Basophils Percent Auto 0.4 % (0.2-1.2); Eosinophils Absolute Auto 0.1 K/mm3 (0-0.3); Hematocrit 24.4 % (37.0-47.0); Hemoglobin 7.4 g/dL (12.0-15.0); Immature Granulocyte Absolute 0.01 K/mm3 (0.00-0.031); Immature Granulocyte Percent A 0.2 % (0-0.5); Lymphocytes Absolute Auto 1.65 K/mm3 (0.9-3.2); Mean Corpuscular HGB Conc 30.3 g/dl (32-36); Mean Corpuscular Hemoglobin 29.8 pg (26-34); Mean Corpuscular Volume 98.4 fl (80-100); Mean Platelet Volume 10.8 fl (7.4-10.4); Monocytes Absolute Auto 0.4 K/mm3 (0.1-0.6); Monocytes Percent Auto 8.1 % (2.6-8.5); Neutrophils Absolute Auto 2.4 K/mm3 (1.3-6.7); Neutrophils Percent Auto 53.3 % (45.5-73.1); Nucleated Red Blood Cells Perc 0.4 % (0.0-0.2); Platelet Count Result 144 k/mm3 (150-375); Red Blood Count 2.48 M/mm3 (4.2-5.4); Red Cell Distribution Width 17.3 % (11.5-14.5); White Blood Count 4.6 K/mm3 (4.5-10.0)
[2021-11-24 06:56] LABS: Albumin Level 2.9 g/dL (3.5-5.1); Anion Gap 5 mmol/L (8-16); Blood Urea Nitrogen 16 mg/dL (7-17); Calcium 8.6 mg/dL (8.4-10.2); Carbon Dioxide 23 mmol/L (22-30); Chloride 116 mmol/L (98-107); Estimated CRCL calculation 23 ml/min; Estimated Glomerular Filt Rate 31; Glucose 82 mg/dL (65-110); Magnesium 1.9 mg/dL (1.6-2.3); Phosphorus 3.7 mg/dL (2.5-4.5); Potassium 4.2 mmol/L (3.4-5.0); Sodium 144 mmol/L (137-145)
[2021-11-24 07:02] LABS: Iron 52 ug/dL (37-170)
[2021-11-24 07:20] LABS: Percent Iron Saturation 16 % (20-50)
[2021-11-24 07:50] LABS: Glucose Point of Care 83 mg/dl (65-105)
[2021-11-24] MEDS: PANTOPRAZOLE SODIUM IV 40 MG VIAL IV PUSH (08:15)
[2021-11-24] MEDS: DORZOLAMIDE/TIMOLOL OPHTH SOL 10 ML BOTTLE 1 DROP EACH EYE (08:15)
[2021-11-24] MEDS: BRIMONIDINE TARTRATE 0.1% 5 ML OPHTH DROPS 1 DROP EACH EYE (08:15)
--- NOTE | 2021-11-24 09:11 | PC.NURSE ---
per speech therapist Ludmila, pt did well with bedside swallow eval. no further recommendations at this time.
--- NOTE | 2021-11-24 09:15 | PCSTNOTE ---
Please refer to the Bedside Swallow Evaluation in the EMR. Please note, silent aspiration cannot be ruled out at bedside.
--- NOTE | 2021-11-24 09:28 | PM.IMPN ---
Progress Note: A&P Assessment and Plan (1) Altered mental status: Code(s): R41.82 - Altered mental status, unspecified Status: Acute Assessment and Plan: Patient presents with altered mental status from the custodial. Presumably going on for past 2 days but family state patient has been sleeping much more over the past 2 weeks since her head injury. Chest x-ray clear. UA not consistent with UTI. Brain CT showing nonspecific Street white matter disease but no acute findings. Cervical spine CT shows severe cervical spondylosis but no fractures. Brain MRI shows moderate nonspecific cerebral white matter disease but no acute findings. Procalcitonin level is low. COVID is negative. Lactic acid is negative. B12, folate and TSH levels normal. Labs overall unrevealing to the etiology of her altered mental status. Suspect related to medication changes recently coupled with her traumatic brain injury and dementia She is showing signs of improvement. Continue to hold her medications. Will resume Haldol and Cogentin when she is more awake and alert. Consider adding back the Wellbutrin as well. Will continue to hold trazodone. Check Echo. Hold CTA since CrCl 25. Neurology consult. Start therapy Bladder scan -11/24/21 improved today. Bupropion, benztropine and haloperidol have been restarted. Will continue to hold lorazepam at this time. Will monitor. Appreciate Neurology recommendations. (2) Traumatic brain injury: Code(s): S06.9X9A - Unspecified intracranial injury with loss of consciousness of unspecified duration, initial encounter Status: Acute Assessment and Plan: Patient had a fall with left-sided facial trauma. Suspect traumatic brain injury as a component of her altered mental status. Imaging studies as mentioned above. Start PT, OT and speech therapy. -Appreciate Neurology recommendations (3) Hypertension: Code(s): I10 - Essential (primary) hypertension Status: Acute Assessment and Plan: Blood pressure elevated on admission. On small dose of Coreg chronically. Hydralazine available as needed for markedly elevated blood pressure. Resume oral medications when able -11/24/21 Uncontrolled. Bradycardia appears to be resolved. Ordered carvedilol to restart in AM. (4) Anemia: Code(s): D64.9 - Anemia, unspecified Status: Acute Assessment and Plan: Patient with chronic anemia with a hemoglobin in the 9 range probably related to her CKD Hemoglobin 9.3 on admission but dropped to 7.9 most likely related to IV fluids. B12 folate levels are normal. Will check iron studies Decrease IV fluid rate. -11/24/21 Labs c/w SPEEDY. Will start iron. Will plan to discontinue IVF 11/25/21 AM. (5) Chronic kidney disease: Code(s): N18.9 - Chronic kidney disease, unspecified Status: Acute Assessment and Plan: Baseline creatinine 1.7-2.0. Creatinine 2.0 on admission now 1.8. Suspect patient is within her baseline renal function. (6) Dementia: Code(s): F03.90 - Unspecified dementia without behavioral disturbance Status: Acute Assessment and Plan: Was likely contributing to her underlying neurologic changes. As above. Subjective Date/time seen: 11/24/21 09:28 Patient denies having pain. Says she feels like she is not back to her baseline. Per staff members patient appears much better today than yesterday. Review of Systems Neurologic: Reports confusion Exam Narrative: GENERAL: NAD, cooperative HEENT: Normocephalic, atraumatic, anicteric, edentulous NECK:Supple CV: Normal S1, S2, RRR, No MRG RESP: CTAB, Normal work of breathing. EXTREMITIES: Warm and well perfused, no clubbing, cyanosis, SKIN: warm, dry and intact. NEURO:Has chronic dementia and TBI. Awake and alert this morning. Objective Data Vital Signs Vital Signs: Vital Signs - 24 hr 11/23/21 10:00 11/23/21 10:00 11/23/21
[2021-11-24 11:56] LABS: Glucose Point of Care 115 mg/dl (65-105)
[2021-11-24] MEDS: ACETAMINOPHEN 325 MG TABLET 650 MG PO ×2 (13:10→19:25)
[2021-11-24 17:06] LABS: Glucose Point of Care 127 mg/dl (65-105)
[2021-11-25] VITALS (8 sets, daily range): BP systolic 155–168; BP diastolic 43–55; PULSE 49–87; RESP 16–20; TEMP 35.6–36.2; O2SAT 98–100
[2021-11-25] MEDS: SODIUM CHLORIDE 0.9% IV 1,000 ML 70 ML IV CONT (05:22)
[2021-11-25 07:48] LABS: Glucose Point of Care 77 mg/dl (65-105)
[2021-11-25] MEDS: HEPARIN SODIUM 5,000 UNITS/ML VIAL 5000 UNITS SUB-Q (10:07)
[2021-11-25] MEDS: FERROUS GLUCONATE 324 MG TABLET PO (10:07)
[2021-11-25] MEDS: BRIMONIDINE TARTRATE 0.1% 5 ML OPHTH DROPS 1 DROP EACH EYE (10:08)
[2021-11-25] MEDS: DORZOLAMIDE/TIMOLOL OPHTH SOL 10 ML BOTTLE 1 DROP EACH EYE (10:08)
[2021-11-25] MEDS: carvediloL 3.125 MG TABLET PO (10:08)
[2021-11-25] MEDS: PANTOPRAZOLE SODIUM IV 40 MG VIAL IV PUSH (10:08)
[2021-11-25 10:12] LABS: Basophils Percent Auto 0.5 % (0.2-1.2); Eosinophils Absolute Auto 0.1 K/mm3 (0-0.3); Eosinophils Percent Auto 2.9 % (0-4.4); Hematocrit 24.9 % (37.0-47.0); Immature Granulocyte Absolute 0.01 K/mm3 (0.00-0.031); Immature Granulocyte Percent A 0.3 % (0-0.5); Lymphocytes Absolute Auto 1.72 K/mm3 (0.9-3.2); Lymphocytes Percent Auto 45.3 % (18.3-44.2); Mean Corpuscular HGB Conc 32.1 g/dl (32-36); Mean Corpuscular Volume 93.3 fl (80-100); Mean Platelet Volume 10.8 fl (7.4-10.4); Monocytes Absolute Auto 0.2 K/mm3 (0.1-0.6); Monocytes Percent Auto 5.3 % (2.6-8.5); Neutrophils Absolute Auto 1.7 K/mm3 (1.3-6.7); Neutrophils Percent Auto 45.7 % (45.5-73.1); Platelet Count Result 159 k/mm3 (150-375); Red Blood Count 2.67 M/mm3 (4.2-5.4); Red Cell Distribution Width 17.2 % (11.5-14.5); White Blood Count 3.8 K/mm3 (4.5-10.0)
[2021-11-25 10:21] LABS: Alanine Aminotransferase 11 U/L (6-35); Albumin Level 3.2 g/dL (3.5-5.1); Alkaline Phosphatase 125 U/L (38-126); Anion Gap 5 mmol/L (8-16); Aspartate Amino Transferase 22 U/L (14-36); Bilirubin,Total 0.3 mg/dL (0.2-1.3); Blood Urea Nitrogen 16 mg/dL (7-17); Calcium 8.7 mg/dL (8.4-10.2); Carbon Dioxide 21 mmol/L (22-30); Chloride 115 mmol/L (98-107); Estimated CRCL calculation 25 ml/min; Estimated Glomerular Filt Rate 33; Glucose 151 mg/dL (65-110); Potassium 4.1 mmol/L (3.4-5.0); Sodium 141 mmol/L (137-145)
[2021-11-25 10:23] LABS: Ammonia < 9 umol/L (9-30)
[2021-11-25 11:47] LABS: Glucose Point of Care 141 mg/dl (65-105)
--- NOTE | 2021-11-25 12:29 | PM.DS ---
DS: Admitting Diagnosis Discharge Date 11/25/21 Admitting Diagnosis Altered Mental Status DS: Discharge Diagnosis Discharge Diagnosis (1) Altered mental status: Code(s): R41.82 - Altered mental status, unspecified Status: Acute Assessment and Plan: Patient presents with altered mental status from the half-way. Presumably going on for past 2 days but family state patient has been sleeping much more over the past 2 weeks since her head injury. Chest x-ray clear. UA not consistent with UTI. Brain CT showing nonspecific Street white matter disease but no acute findings. Cervical spine CT shows severe cervical spondylosis but no fractures. Brain MRI shows moderate nonspecific cerebral white matter disease but no acute findings. Procalcitonin level is low. COVID is negative. Lactic acid is negative. B12, folate and TSH levels normal. Labs overall unrevealing to the etiology of her altered mental status. Suspect related to medication changes recently coupled with her traumatic brain injury and dementia She is showing signs of improvement. Continue to hold her medications. Will resume Haldol and Cogentin when she is more awake and alert. Consider adding back the Wellbutrin as well. Will continue to hold trazodone. Check Echo. Hold CTA since CrCl 25. Neurology consult. Start therapy Bladder scan -11/24/21 improved today. Bupropion, benztropine and haloperidol have been restarted. Will continue to hold lorazepam at this time. Will monitor. Appreciate Neurology recommendations. -11/25/21 Patient is awake and alert sitting in the chair answering questions. She stated her name and date of and that she was in the hospital. Her confusion appears to have been due to medication and dehydration. Will plan to discharge patient home. Called daughter, Nancy Gil, to update status but no answer. Left voicemail. (2) Traumatic brain injury: Code(s): S06.9X9A - Unspecified intracranial injury with loss of consciousness of unspecified duration, initial encounter Status: Acute Assessment and Plan: Patient had a fall with left-sided facial trauma. Suspect traumatic brain injury as a component of her altered mental status. Imaging studies as mentioned above. Start PT, OT and speech therapy. -Appreciate Neurology recommendations - 11/25/21 Patient reporting significant itching overlying the hematoma above her left eye. Ordered a benadryl cream as the patient was scratching the area so much the skin was starting to peel. (3) Hypertension: Code(s): I10 - Essential (primary) hypertension Status: Acute Assessment and Plan: Blood pressure elevated on admission. On small dose of Coreg chronically. Hydralazine available as needed for markedly elevated blood pressure. Resume oral medications when able -11/24/21 Uncontrolled. Bradycardia appears to be resolved. Ordered carvedilol to restart in AM. -11/25 improved BP control with no bradycardia s/p restarting carvedilol. Will continue for discharge back to facility. (4) Anemia: Code(s): D64.9 - Anemia, unspecified Status: Acute Assessment and Plan: Patient with chronic anemia with a hemoglobin in the 9 range probably related to her CKD Hemoglobin 9.3 on admission but dropped to 7.9 most likely related to IV fluids. B12 folate levels are normal. Will check iron studies Decrease IV fluid rate. -11/24/21 Labs c/w SPEEDY. Will start iron. Will plan to discontinue IVF 11/25/21 AM. -11/25/21 Iron tabs started for QOD as there is less constipation and similar efficacy as daily dosing. (5) Chronic kidney disease: Code(s): N18.9 - Chronic kidney disease, unspecified Status: Acute Assessment and Plan: Baseline creatinine 1.7-2.0. Creatinine 2.0 on admission now 1.8. Suspect patient is within her baseline renal function. (6) Dementia: Code(s): F03.90 - Unspecified dementia without beha
[2021-11-25 14:46] LABS: EDCOVIDSCREEN Negative (Negative)
[2021-11-27 07:33] LABS: Rapid Plasma Reagin Non-Reactive (NonReactive)
== END 2021-11-25 17:05 | DRG 948 ==
LOC: ANHED 13:41 → ANH3MEDSUR 17:45
PROVIDERS: Emergency Medicine; Internal Medicine; Nurse Practitioner Adult Health; Admitting Provider Internal Medicine; Emergency Provider General Practice; PCP Internal Medicine; Visit Provider Family Medicine
DX: R41.82 Altered mental status, unspecified (principal); I13.0 Hypertensive heart and chronic kidney disease with heart failure and stage 1 through stage 4 chronic kidney disease, or unspecified chronic kidney disease; I50.32 Chronic diastolic (congestive) heart failure; N17.9 Acute kidney failure, unspecified; T50.905A Adverse effect of unspecified drugs, medicaments and biological substances, initial encounter; S06.9X0A Unspecified intracranial injury without loss of consciousness, initial encounter; E86.0 Dehydration; F03.90 Unspecified dementia, unspecified severity, without behavioral disturbance, psychotic disturbance, mood disturbance, and anxiety; D63.1 Anemia in chronic kidney disease; Z20.822 Contact with and (suspected) exposure to COVID-19; N18.9 Chronic kidney disease, unspecified; K21.9 Gastro-esophageal reflux disease without esophagitis; F41.9 Anxiety disorder, unspecified; I12.9 Hypertensive chronic kidney disease with stage 1 through stage 4 chronic kidney disease, or unspecified chronic kidney disease; H40.9 Unspecified glaucoma; E66.9 Obesity, unspecified; Z68.31 Body mass index [BMI] 31.0-31.9, adult; W19.XXXA Unspecified fall, initial encounter; S01.80XA Unspecified open wound of other part of head, initial encounter; Z66 Do not resuscitate
CPT/HCPCS: 36415; 36600; 70450; 70551; 71045; 72125; 80053; 80069; 80307; 81001; 82140; 82375; 82550; 82607; 82728; 82746; 82805; 82948; 83050; 83540; 83550; 83605; 83735; 84100; 84145; 84443; 84484; 85025; 85055; 85610; 85730; 86592; 87426; 92610; 93005; 93306; 96361; 96374; 96375; 97161; 97165; 97535; 99285; A9270; C9113; C9803; G0378; J0131; J0360; J1644; J7030; U0003; U0005

== ENCOUNTER 2022-01-06 03:00 | Inpatient (IN) | payer MEDICARE, MEDICAID, SELFPAY ==
[2022-01-06] VITALS (16 sets, daily range): BP systolic 146–187; BP diastolic 58–84; PULSE 61–82; RESP 11–20; TEMP 35.5–36.6; O2SAT 100
--- NOTE | ~2022-01-06 | CT_ITS ---
EXAMINATION: CT diagnostic chest wo con DATE: 01/06/2022 06:08 INDICATION: Shortness of breath TECHNIQUE: Computed tomography (CT) of the chest was performed without intravenous contrast. The dose -length product (DLP) was 172.09 mGy-cm. Automated exposure control and iterative reconstruction tech nique were employed. COMPARISON: None FINDINGS: There are small to moderate-sized right and small left pleural effusions. Minimal associate d dependent airspace opacities of the lungs are consistent with atelectasis. There are minimal airspa ce opacities left upper lobe. Cardiomegaly is noted. There are no pathologically enlarged thoracic ly mph nodes. 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 There is moderate thoracic and severe l umbar spondylosis. IMPRESSION: 1. Small to moderate size right and small left pleural effusions with mild passive atelectasis. 2. Minimal airspace opacity of the left upper lobe, likely infectious or inflammatory. Reviewed, dictated and finalized at location A. IMPRESSION: 1. Small to moderate size right and small left pleural effusions with mild pass idalia atelectasis. 2. Minimal airspace opacity of the left upper lobe, likely infectious or inflam matory.
--- NOTE | ~2022-01-06 | XR_ITS ---
EXAMINATION: XR chest 1V INDICATION: Shortness of breath TECHNIQUE: Portable AP chest at 0305 hours COMPARISON: 11/22/2021 FINDINGS: There is a small to moderate-sized right pleural effusion. There is a small left pleural ef fusion. There are minimal airspace opacities of the adjacent lung bases. The heart size is normal. No pneumothorax is identified. 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 IMPRESSION: 1. [id number]-vt-vponnuqn size right and small left pleural effusions with minimal associated airspace opa cities of the lung bases, likely atelectasis. Reviewed, dictated and finalized at location A. IMPRESSION: 1. Dkgwe-mk-bxiosjla size right and small left pleural effusions with minimal a ssociated airspace opacities of the lung bases, likely atelectasis.
--- NOTE | ~2022-01-06 | US_ITS ---
EXAMINATION: US renal BI DATE: 01/07/2022 11:26 INDICATION: acute renal failure TECHNIQUE: Multiple grayscale and Doppler ultrasound images of the kidneys were obtained. COMPARISON: None. FINDINGS: The right kidney measures 8.5 x 3.0 x 3.0 cm. The left kidney measures 10.6 x 4.8 x 5.9 cm. The kidne ys demonstrate normal parenchymal echogenicity. Left renal visualization is somewhat limited by bowel gas. There is no hydronephrosis. The bladder is decompressed by P[place]. IMPRESSION: Unremarkable renal sonogram findings. Reviewed, dictated and finalized at location K.
--- NOTE | ~2022-01-06 | US_ITS ---
EXAMINATION: US thoracentesis DATE: 01/08/2022 16:06 INDICATION: pleural effusion TECHNIQUE: The procedure and its risks, benefits, and alternatives were discussed with the patient's daughter. Potential risks discussed included bleeding, infection, and pneumothorax. She understood th e risks and agreed to proceed. The skin was prepped and draped in sterile fashion. 1% lidocaine was u sed for local anesthesia. Under ultrasound guidance, a 5 Fr catheter with trochar was advanced into t he right pleural effusion. Fluid was aspirated. The catheter was removed, and a dressing was applied. There were no immediate complications. FINDINGS: Ultrasound images demonstrate a right pleural effusion and the catheter within the fluid. IMPRESSION: 1. Successful ultrasound-guided thoracentesis yielding 1000 mL of tatiana-colored fluid. Reviewed, dictated and finalized at location A. IMPRESSION: 1. Successful ultrasound-guided thoracentesis yielding 1000 mL of tatiana-colore d fluid.
--- NOTE | ~2022-01-06 | XR_ITS ---
EXAMINATION: [id number] DATE: 01/08/2022 16:34 INDICATION: Right pleural effusion status post thoracentesis. TECHNIQUE: A single frontal view of the chest was obtained. COMPARISON: Chest single view 01/06/2022, chest CT 01/06/2022 FINDINGS: There are small pleural effusions. There are airspace opacities at the lung bases, likely a telectasis. No pneumothorax. Cardiomegaly is noted. IMPRESSION: 1. Small pleural effusions with improvement on the right status post thoracentesis. 2. Cardiomegaly. Reviewed, dictated and finalized at location A. IMPRESSION: 1. Small pleural effusions with improvement on the right status post thoracente sis. 2. Cardiomegaly.
--- NOTE | 2022-01-06 04:08 | ECG_ITS ---
Measurements Intervals [place] Rate: 77 P: 40 MS: 176 QRS: -19 QRSD: 149 T: 73 QT: 430 QTc: 488 Interpretive Statements SINUS RHYTHM RIGHT BUNDLE BRANCH BLOCK [120+ ms QRS DURATION, UPRIGHT V1, 40+ ms S IN I/aVL/V4/V5/V6] POSSIBLE LEFT VENTRICULAR HYPERTROPHY [VOLTAGE CRITERIA PLUS LAE OR QRS WIDENING] ABNORMAL ECG Electronically Signed On 01-06-2022 10:06:33 CDT by Lavell Padron M.D.
[2022-01-06 05:16] LABS: Basophils Percent Auto 0.5 % (0.2-1.2); Eosinophils Absolute Auto 0.1 K/mm3 (0-0.3); Eosinophils Percent Auto 1.9 % (0-4.4); Hematocrit 26.7 % (37.0-47.0); Hemoglobin 8.4 g/dL (12.0-15.0); Immature Granulocyte Absolute 0.01 K/mm3 (0.00-0.031); Immature Granulocyte Percent A 0.3 % (0-0.5); Lymphocytes Absolute Auto 1.33 K/mm3 (0.9-3.2); Lymphocytes Percent Auto 36.2 % (18.3-44.2); Mean Corpuscular HGB Conc 31.5 g/dl (32-36); Mean Corpuscular Hemoglobin 30.3 pg (26-34); Mean Corpuscular Volume 96.4 fl (80-100); Mean Platelet Volume 11.3 fl (7.4-10.4); Monocytes Absolute Auto 0.2 K/mm3 (0.1-0.6); Monocytes Percent Auto 6.5 % (2.6-8.5); Neutrophils Percent Auto 54.6 % (45.5-73.1); Platelet Count Result 149 k/mm3 (150-375); Red Blood Count 2.77 M/mm3 (4.2-5.4); Red Cell Distribution Width 18.8 % (11.5-14.5); White Blood Count 3.7 K/mm3 (4.5-10.0)
[2022-01-06 05:22] LABS: Alanine Aminotransferase 22 U/L (6-35); Albumin Level 3.7 g/dL (3.5-5.1); Alkaline Phosphatase 158 U/L (38-126); Anion Gap 8 mmol/L (8-16); Aspartate Amino Transferase 43 U/L (14-36); Bilirubin,Total 0.4 mg/dL (0.2-1.3); Blood Urea Nitrogen 15 mg/dL (7-17); Carbon Dioxide 25 mmol/L (22-30); Chloride 111 mmol/L (98-107); Estimated CRCL calculation 22 ml/min; Estimated Glomerular Filt Rate 24; Glucose 79 mg/dL (65-110); Lactic Acid Reflex 1.2 mmol/L (0.7-2.0); Magnesium 1.9 mg/dL (1.6-2.3); Potassium 4.1 mmol/L (3.4-5.0); Sodium 144 mmol/L (137-145)
[2022-01-06 05:30] LABS: NT Pro B Type Natriuretic Pept 1090 pg/mL (5-100)
[2022-01-06 05:32] LABS: INR 1.1; Prothrombin Time 13.6 Seconds (11.1-14.7)
[2022-01-06 05:33] LABS: Partial Thromboplastin Time 40.8 SECONDS (22.3-36.8)
[2022-01-06 05:45] LABS: Procalcitonin 0.1 ng/mL
[2022-01-06 05:49] LABS: Influenza A QL RT-PCR Negative (Negative); Influenza B QL RT-PCR Negative (Negative); SARS-CoV-2 RNA PCR Negative
--- NOTE | 2022-01-06 06:40 | ED.GENADULT ---
HPI - General Adult General Chief complaint: Recheck/Abnormal Lab/Rx <Gurpreet Blevins MD - Last Filed: 01/06/22 06:54> Stated complaint: Abnormal Chest X Ray <Gurpreet Blevins MD - Last Filed: 01/06/22 06:54> Time Seen by Provider: 01/06/22 05:35 <Gurpreet Blevins MD - Last Filed: 01/06/22 06:54> History of Present Illness HPI narrative: Patient 81-year-old female who presents the emergency department with chief complaint of abnormal chest x-ray. Per the retirement the patient had a chest x-ray that was done that showed some abnormal findings they are unsure of what they were patient's primary providing service called and told him to send the patient to the emergency department. The patient denies any real complaints at this time. <Gurpreet Blevins MD - Last Filed: 01/06/22 06:54> Related Data Home medications: Home Medications Medication Instructions Recorded Confirmed benztropine 1 mg tablet 1 mg PO DAILY 11/22/21 11/23/21 brimonidine 0.1 % eye drops 1 drp EACH EYE DAILY Unspecified 11/22/21 11/23/21 (Alphagan P) Glaucoma carvedilol 3.125 mg tablet 3.125 tablet PO BID 11/22/21 11/23/21 dorzolamide 22.3 mg-timolol 6.8 1 drp EACH EYE DAILY 11/22/21 11/23/21 mg/mL eye drops famotidine 20 mg tablet 20 mg BID 11/22/21 11/23/21 ondansetron HCl 4 mg tablet 4 mg PO Q6H PRN Nausea And Vomiting 11/22/21 11/23/21 pravastatin 20 mg tablet 20 mg PO DAILY 11/22/21 11/23/21 aluminum-mag hydroxide-simethicone 5 ml PO Q6H PRN Heartburn 11/23/21 11/23/21 200 mg-200 mg-20 mg/5 mL oral susp (Maalox Advanced) polyethylene glycol 3350 17 gram 17 g PO DAILY PRN Constipation 11/23/21 11/23/21 oral powder packet (Miralax) <Gurpreet Blevins MD - Last Filed: 01/06/22 06:54> Allergies/adverse reactions: Allergies Allergy/AdvReac Type Severity Reaction Status Date / Time Sulfa (Sulfonamide Allergy Unknown Verified 01/06/22 02:34 Antibiotics) <Gurpreet Blevins MD - Last Filed: 01/06/22 06:54> Review of Systems Review of Systems: A 10 system review of systems was completed on the patient and is negative except for what is stated in the HPI. Nursing and ancillary documentation was reviewed. <Gurpreet Blevins MD - Last Filed: 01/06/22 06:54> PMFSH Past Medical History Medical History: Medical History Anxiety Chronic diastolic heart failure Chronic kidney disease Dementia GERD (gastroesophageal reflux disease) Glaucoma Hyperlipidemia Hypertension <Gurpreet Blevins MD - Last Filed: 01/06/22 06:54> Social History Social History: Social History Smoking status: Never smoker Second hand tobacco smoke exposure: No Alcohol intake: never Substance use: never Substance use type: does not use Spiritual care concerns: No <Gurpreet Blevins MD - Last Filed: 01/06/22 06:54> Exam Narrative: GENERAL: Well-appearing, well-nourished, and in no acute distress. HEAD: Normocephalic, atraumatic. EYES: PERRLA and EOMI. ENT: Nares clear, no rhinorrhea or epistaxis. Mucous membranes moist. NECK: Supple. CHEST: Clear to auscultation. No respiratory distress. HEART: Regular rate and rhythm. No murmur heard. Normal peripheral pulses. ABDOMEN: Soft, nontender, nondistended, normal active bowel sounds. EXTREMITIES: Normal range of motion. No edema. SKIN: Warm, dry, no rash. NEURO: No focal deficits. Alert and somewhat confused PSYCH: Normal mood and affect. <Gurpreet Blevins MD - Last Filed: 01/06/22 06:54> Course Course Emergency Course: Chest x-ray showed evidence of a large pleural effusion this is new compared to previous studies. A CT scan was ordered to obtain more detail for other acute findings in the chest. The patient was anemic but this is chronic fo
[2022-01-06 07:21] LABS: Appearance Urine Slightly Cloudy (Clear); Bilirubin Urine Negative (Negative); Blood Urine Trace-lysed (Negative); Color Urine Yellow (Yellow); Glucose Urine UA Negative (Negative); Ketones Urine Negative (Negative); Leukocyte Esterase Ur 1+ LEU/UL (Negative); Nitrate Urine Negative (Negative); Protein Urine 3+ mg/dL (Negative); Specific Grav Ur 1.025 (1.001-1.035); Urobilinogen Urine 0.2 mg/dL (<2.0); pH Urine 5.5 (5.0-9.0)
[2022-01-06 07:30] LABS: Bacteria Urine 1+ /hpf; Mucus Urine Rare /lpf; Squamous Epithelial Cell Urine Many /hpf (Few); WBC Urine 16-20 /hpf
[2022-01-06 07:38] LABS: Add Urine Microscopic? YES
--- NOTE | 2022-01-06 08:39 | PC.NURSE ---
0400- RN spoke with Dari, nurse from [facility] about why pt had been sent to the ER. 0420- RN spoke with Nancy, daughter, about pt being in the ER and that MD had orders Labs, Ct scan and it would take a few hours to get all of the results back. RN will call back once MD has made a decision about admit or D/C. 0830- RN called Romina, Daughter/MANJEET, and notified that ERP wanted to admit but did not have a bed number at this time.
--- NOTE | 2022-01-06 13:09 | PC.NURSE ---
pt arrived on unit at 11:30am. IV fluids in [facility] indicate to be administered at 0730 four hours prior to arriving on the floor. The IV fluids on the [facility] were not available to this RN until after 1300 as it was continually stating not verified by pharmacy thereby preventing me from administering until now.
[2022-01-06] MEDS: SODIUM CHLORIDE 0.9% IV 1,000 ML 100 ML IV CONT (13:15)
--- NOTE | 2022-01-06 17:28 | PM.IMHP ---
H&P: HPI History of Present Illness Date/Time: 01/06/22 1600 Chief Complaint: Abnormal labs Narrative: this is a 81-year-old female patient who has a history of dementia. Her daughter Romina who is the power criminal defense attorney is at the bedside answering questions for me. The patient was sent here [facility] due to an abnormal chest x-ray per [facility] The chest x-ray was abnormal and the patient was sent to the emergency room to be evaluated. The power criminal defense attorney Romina stated that the patient has had a decreased appetite and does not eat very well. She is edentulous and just take small bites. She is currently eating a bag of chips. Her H&H is 8.4 And 26.7 which appears beer baseline. patient's creatinine is 2.4 today last month is 1.8. BNP is 1009. She was also positive for UTI. She is negative for influenza A/B and COVID. Chest x-ray was read as small to moderate size right and small left pleural effusions with minimal associated airspace opacities of the lung bases likely atelectasis. Chest CT was read as small to moderate size right and small left pleural effusion with mild passive atelectasis. Minimal airspace opacities of the left lower lung likely infectious or inflammatory. The patient was given IV fluids however they were not able to maintain her IV line at this time. She has a very poor stick. I have ordered oral antibiotics for the patient she is not able to maintain an IV at this time. Also Interventional Radiology will be available tomorrow for a thoracentesis of the right pleural effusion. The patient is being admitted for observation on the date of service of 01/06/2022. Review of Systems Review of Systems: See HPI. Patient's power criminal defense attorney is answering questions for us All systems reviewed & are unremarkable except as noted in HPI and below Constitutional: Constitutional: Reports as per HPI and Reports no additional constitutional complaints Eyes: Eyes: Reports as per HPI and Reports no additional eye complaints ENT: Reports system reviewed and no additional complaints, except as documented and Reports Normal hearing present Cardiovascular: Cardiovascular: Reports no additional cardiovascular complaints Respiratory: Respiratory: Reports no additional respiratory complaints and Reports no additional respiratory complaints Gastrointestinal: Gastrointestinal: Reports as per HPI and Reports no additional gastrointestinal complaints Musculoskeletal: Musculoskeletal: Reports no additional musculoskeletal complaints Integumentary/Breasts: Skin/Breast: Reports system reviewed and no additional complaints, except as docu and Reports as per HPI Neurologic: Reports system reviewed and no additional complaints, except as documented, Reports as per HPI and Reports Normal hearing present Psychiatric: Psychiatric: Reports no additional psychiatric complaints and Reports as per HPI Endocrine: Endocrine: Reports no additional endocrine complaints Hematologic/Lymphatic: Hematologic/Lymphatic: Reports no additional hematologic/lymphatic complaints Allergic/Immunologic: Allergic/Immunologic: Reports no additional allergic/immunologic complaints [facility] Past Medical History Medical History (Updated 01/06/22 @ 17:57 by Gayathri Vernon NP) Anxiety Chronic diastolic heart failure Chronic kidney disease Chronic renal failure, stage 3 (moderate) Dementia GERD (gastroesophageal reflux disease) Glaucoma Hyperlipidemia Hypertension Surgical History Surgical History (Updated 01/06/22 @ 17:45 by Gayathri Vernon NP) H/O cataract extraction History of bilateral tubal ligation Family History Family History (Updated 01/06/22 @ 17:46 by Gayathri Vernon NP) Son Heart disease Son Traumatic brain injury Mother Heart disease Hypertension Diabetes mellitus Father Hypertension Lung cancer Social History Social History (Updated 01/06/22 @ 17:48 by Gayathri Vernon NP) Soc
[2022-01-06] MEDS: CEFUROXIME AXETIL 250 MG TABLET 500 MG PO (18:40)
[2022-01-06 18:43] LABS: Albumin Level 2.8 g/dL (3.5-5.1); Amylase 42 U/L (30-110); Bilirubin,Total 0.4 mg/dL (0.2-1.3); Cholesterol 125 mg/dL (0-200); Glucose 147 mg/dL (65-110); Lactate Dehydrogenase 264 U/L (120-246); Triglycerides 152 mg/dL (<150)
[2022-01-06 18:44] LABS: INR 1.1; Prothrombin Time 13.8 Seconds (11.1-14.7)
[2022-01-06] MEDS: PRAVASTATIN SODIUM 20 MG TABLET PO (20:32)
[2022-01-06] MEDS: HALOPERIDOL 0.5 MG TABLET PO (20:32)
[2022-01-06] MEDS: carvediloL 3.125 MG TABLET PO (20:32)
[2022-01-06] MEDS: buPROPion HCL SR (12HR) 100 MG TABCR PO (20:32)
[2022-01-06] MEDS: HALOPERIDOL 1 MG TABLET 2 MG PO (20:32)
[2022-01-06] MEDS: DOXYCYCLINE HYCLATE 100 MG TABLET PO (20:32)
[2022-01-07] VITALS (21 sets, daily range): BP systolic 133–176; BP diastolic 51–74; PULSE 58–81; RESP 12–21; TEMP 34.5–36.5; O2SAT 97–100
--- NOTE | 2022-01-07 00:08 | PC.NURSE ---
This patient, Pat Gil, was transferred to [ IMU] on 01/07/22 at 2353. Personal belongings sent with patient. Report given to [Lauren ]. Appropriate documentation sent with patient.
--- NOTE | 2022-01-07 00:15 | PC.NURSE ---
This patient, Pat Gil, was received from [[id number]] on 01/07/22 at 2351. Patient/family oriented to unit policies and routines
[2022-01-07] MEDS: HYDROcodone/acetaminophen (*CRX) 5-325 MG TABLET 1 TAB PO (01:13)
[2022-01-07 05:28] LABS: Basophils Percent Auto 0.2 % (0.2-1.2); Eosinophils Absolute Auto 0.1 K/mm3 (0-0.3); Eosinophils Percent Auto 1.6 % (0-4.4); Hemoglobin 7.7 g/dL (12.0-15.0); Immature Granulocyte Absolute 0.01 K/mm3 (0.00-0.031); Immature Granulocyte Percent A 0.2 % (0-0.5); Lymphocytes Absolute Auto 1.64 K/mm3 (0.9-3.2); Lymphocytes Percent Auto 32.7 % (18.3-44.2); Mean Corpuscular HGB Conc 32.1 g/dl (32-36); Mean Corpuscular Hemoglobin 30.3 pg (26-34); Mean Corpuscular Volume 94.5 fl (80-100); Mean Platelet Volume 11.2 fl (7.4-10.4); Monocytes Absolute Auto 0.4 K/mm3 (0.1-0.6); Monocytes Percent Auto 7.2 % (2.6-8.5); Neutrophils Absolute Auto 2.9 K/mm3 (1.3-6.7); Neutrophils Percent Auto 58.1 % (45.5-73.1); Platelet Count Result 147 k/mm3 (150-375); Red Blood Count 2.54 M/mm3 (4.2-5.4); Red Cell Distribution Width 18.5 % (11.5-14.5)
[2022-01-07 05:42] LABS: D Dimer 1.18 ug/mL (<0.48)
[2022-01-07 05:44] LABS: Alanine Aminotransferase 20 U/L (6-35); Albumin Level 3.2 g/dL (3.5-5.1); Alkaline Phosphatase 135 U/L (38-126); Anion Gap 7 mmol/L (8-16); Aspartate Amino Transferase 38 U/L (14-36); Bilirubin,Total 0.3 mg/dL (0.2-1.3); Blood Urea Nitrogen 16 mg/dL (7-17); Calcium 8.6 mg/dL (8.4-10.2); Carbon Dioxide 23 mmol/L (22-30); Chloride 113 mmol/L (98-107); Estimated CRCL calculation 19 ml/min; Estimated Glomerular Filt Rate 25; Glucose 85 mg/dL (65-110); Magnesium 1.8 mg/dL (1.6-2.3); Potassium 4.2 mmol/L (3.4-5.0); Sodium 143 mmol/L (137-145)
[2022-01-07 05:51] LABS: Lactate Dehydrogenase 305 U/L (120-246)
[2022-01-07] MEDS: SODIUM CHLORIDE 0.9% IV 1,000 ML 100 ML IV CONT ×2 (07:00→12:47)
[2022-01-07] MEDS: buPROPion HCL SR (12HR) 100 MG TABCR PO ×2 (09:41→21:37)
[2022-01-07] MEDS: DORZOLAMIDE/TIMOLOL OPHTH SOL 10 ML BOTTLE 1 DROP EACH EYE (09:41)
[2022-01-07] MEDS: carvediloL 3.125 MG TABLET PO ×2 (09:41→21:35)
[2022-01-07] MEDS: amLODIPine BESYLATE 5 MG TABLET 10 MG PO (09:42)
[2022-01-07] MEDS: BENZTROPINE MESYLATE 1 MG TABLET PO (09:42)
[2022-01-07] MEDS: BRIMONIDINE TARTRATE 0.1% 5 ML OPHTH DROPS 1 DROP EACH EYE (09:42)
--- NOTE | 2022-01-07 14:13 | PM.IMPN ---
Progress Note: A&P Assessment and Plan (1) UTI (urinary tract infection): Code(s): N39.0 - Urinary tract infection, site not specified Status: Acute Assessment and Plan: - Patient has no IV access at this time so we started Ceftin. It will need to be renally dosed. - Cultures pending 01/07/2022 Interval history: 81-year-old female a resident of senior care was sent to emergency depart due to abnormal chest x-ray patient is found to have pleural effusion and concerning for pneumonia or inflammatory process, patient is being treated with ceftriaxone and azithromycin, patient is also scheduled to have thoracentesis will follow, patient urine is also suspicious UTI being treated with ceftriaxone will follow-up on urine and blood culture, unfortunately patient is very poor historian, the PT OT evaluate the patient and further recommendation to follow (2) Pneumonia: Code(s): J18.9 - Pneumonia, unspecified organism Status: Acute Assessment and Plan: - patient was started on doxycycline and Ceftin - discussed case with pharmacist - cultures pending (3) Chronic renal failure, stage 3 (moderate): Code(s): N18.30 - Chronic kidney disease, stage 3 unspecified Status: Acute Assessment and Plan: - avoid nephrotoxic medication - unable to get IV access at this time. - Renal ultrasound - creatinine 2.4 today and it wa (4) Glaucoma: Code(s): H40.9 - Unspecified glaucoma Status: Acute Assessment and Plan: - continue with home eye drops (5) Pleural effusion: Code(s): J90 - Pleural effusion, not elsewhere classified Status: Acute Assessment and Plan: - thoracentesis set up for tomorrow. - Cytology ordered (6) Dementia: Code(s): F03.90 - Unspecified dementia without behavioral disturbance Status: Acute Assessment and Plan: - She takes Haldol - poor short-term memory (7) Anemia: Code(s): D64.9 - Anemia, unspecified Status: Acute Assessment and Plan: - continue to monitor - at baseline (8) Hypertension: Code(s): I10 - Essential (primary) hypertension Status: Acute Assessment and Plan: - continue amlodipine - continue Coreg (9) Chronic kidney disease: Code(s): N18.9 - Chronic kidney disease, unspecified Status: Acute (10) EVER (acute kidney injury): Code(s): N17.9 - Acute kidney failure, unspecified Status: Acute Subjective Date/time seen: 01/07/22 14:13 ? Abnormal labs HPI-Narrative: ?this is a 81-year-old female patient who has a history of dementia.? Her daughter Romina who is the power collections attorney is at the bedside answering questions for me.? The patient was sent here? [facility] due to an abnormal chest x-ray per senior care.? The chest x-ray was abnormal and the patient was sent to the emergency room to be evaluated.? The power collections attorney Romina stated that the patient has had a decreased appetite and does not eat very well.? She is edentulous and just take small bites.? She is currently eating a bag of chips.? Her H&H is 8.4? And 26.7 which appears beer baseline. patient's creatinine is 2.4 today last month is 1.8.? BNP is 1009.? She was also positive for UTI.? She is negative for influenza A/B and COVID.? Chest x-ray was read as small to moderate size right and small left pleural effusions with minimal associated airspace opacities of the lung bases likely atelectasis.? Chest CT was read as small to moderate size right and small left pleural effusion with mild passive atelectasis.? Minimal airspace opacities of the left lower lung likely infectious or inflammatory.? The patient was given IV fluids however they were not able to maintain her IV line at this time.? She has a very poor stick. I have ordered oral antibiotics for the patient she is not able to maintain an IV at this time.? Also Interventional Radiology will be available t
[2022-01-07] MEDS: ACETAMINOPHEN 325 MG TABLET 650 MG PO (16:44)
--- NOTE | 2022-01-07 18:15 | PC.NURSE ---
This patient, Pat Gil, was transferred to [facility] on 01/07/22 at 1752. Personal belongings sent with patient. Report given to Radha PARISH. Appropriate documentation sent with patient. Patient POA of new room number.
[2022-01-07] MEDS: HALOPERIDOL 0.5 MG TABLET PO (21:37)
[2022-01-07] MEDS: HALOPERIDOL 1 MG TABLET 2 MG PO (21:38)
[2022-01-07] MEDS: PRAVASTATIN SODIUM 20 MG TABLET PO (21:40)
--- NOTE | 2022-01-07 22:53 | PC.NURSE ---
Positive preliminary urine culture posted at 5451 01/07. Lab did not notify nursing staff of positive result. Gayathri Vernon notified, no new orders received, will wait for sensitivity to post before adding additional antibiotics per provider.
[2022-01-08] VITALS (53 sets, daily range): BP systolic 118–185; BP diastolic 47–123; PULSE 55–98; RESP 11–27; TEMP 33.1–36.4; O2SAT 85–100
[2022-01-08] MEDS: ALBUTEROL SULFATE NEB 2.5 MG/3 ML INH INHALATION (05:02)
[2022-01-08] MEDS: FUROSEMIDE INJ 40 MG/4 ML VIAL IV PUSH (05:06)
[2022-01-08] MEDS: BRIMONIDINE TARTRATE 0.1% 5 ML OPHTH DROPS 1 DROP EACH EYE (08:18)
[2022-01-08 08:21] LABS: Hematocrit 27.2 % (37.0-47.0); Hemoglobin 8.5 g/dL (12.0-15.0); Immature Platelet Fraction Pct 4.3 % (0.9-11.2); Mean Corpuscular HGB Conc 31.3 g/dl (32-36); Mean Corpuscular Hemoglobin 30.6 pg (26-34); Mean Corpuscular Volume 97.8 fl (80-100); Mean Platelet Volume 10.7 fl (7.4-10.4); Platelet Count Result 155 k/mm3 (150-375); Red Blood Count 2.78 M/mm3 (4.2-5.4); Red Cell Distribution Width 18.8 % (11.5-14.5); White Blood Count 3.9 K/mm3 (4.5-10.0)
[2022-01-08] MEDS: amLODIPine BESYLATE 5 MG TABLET 10 MG PO (08:30)
[2022-01-08] MEDS: carvediloL 3.125 MG TABLET PO ×2 (08:30→19:51)
[2022-01-08] MEDS: BENZTROPINE MESYLATE 1 MG TABLET PO (08:30)
[2022-01-08] MEDS: buPROPion HCL SR (12HR) 100 MG TABCR PO ×2 (08:30→19:51)
[2022-01-08] MEDS: DORZOLAMIDE/TIMOLOL OPHTH SOL 10 ML BOTTLE 1 DROP EACH EYE (08:31)
[2022-01-08 08:34] LABS: Alanine Aminotransferase 20 U/L (6-35); Albumin Level 3.4 g/dL (3.5-5.1); Alkaline Phosphatase 143 U/L (38-126); Anion Gap 10 mmol/L (8-16); Aspartate Amino Transferase 37 U/L (14-36); Bilirubin,Total 0.3 mg/dL (0.2-1.3); Blood Urea Nitrogen 15 mg/dL (7-17); Calcium 9.1 mg/dL (8.4-10.2); Carbon Dioxide 25 mmol/L (22-30); Chloride 109 mmol/L (98-107); Estimated CRCL calculation 19 ml/min; Estimated Glomerular Filt Rate 25; Glucose 120 mg/dL (65-110); Lactate Dehydrogenase 311 U/L (120-246); Magnesium 1.9 mg/dL (1.6-2.3); Potassium 3.9 mmol/L (3.4-5.0); Sodium 144 mmol/L (137-145)
[2022-01-08] MEDS: SODIUM CHLORIDE 0.9% IV 1,000 ML 50 ML IV CONT ×2 (09:32→20:04)
--- NOTE | 2022-01-08 11:34 | PC.NURSE ---
Patient transferred to ICU room 6 as an IMU overflow. Romina BURROUGHS notified.
[2022-01-08 11:39] LABS: Glucose Point of Care 97 mg/dl (65-105)
[2022-01-08] MEDS: SALINE LOCK FLUSH 10 ML IV PUSH ×2 (13:50→19:52)
[2022-01-08 16:24] LABS: pH Pleural Fluid 7.449 (7.210-7.500)
--- NOTE | 2022-01-08 16:52 | PM.IMPN ---
Progress Note: A&P Assessment and Plan (1) UTI (urinary tract infection): Code(s): N39.0 - Urinary tract infection, site not specified Status: Acute Assessment and Plan: - Patient has no IV access at this time so we started Ceftin. It will need to be renally dosed. - Cultures pending 01/07/2022 Interval history: 81-[facility]-old [facility] due to abnormal chest x-ray patient is found to have pleural effusion and concerning for pneumonia or inflammatory process, patient is being treated with ceftriaxone and azithromycin, patient is also scheduled to have thoracentesis will follow, patient urine is also suspicious UTI being treated with ceftriaxone will follow-up on urine and blood culture, unfortunately patient is very poor historian, the PT OT evaluate the patient and further recommendation to follow 01/08/2022 Interval history: 81-year-old female a [facility] depart due to abnormal chest x-ray patient is found to have pleural effusion and concerning for pneumonia or inflammatory process, patient is being treated with ceftriaxone and azithromycin, today patient had thoracentesis and 1000MLcloudy fluid was collected, will follow up on lab, today again patient was hypothermic and was patient was placed under bearhugger patient urine is also suspicious UTI being treated with ceftriaxone will follow-up on urine and blood culture, unfortunately patient is very poor historian, I spoke with patient daughter and gave updates, PT OT evaluate the patient and further recommendation to follow (2) Pneumonia: Code(s): J18.9 - Pneumonia, unspecified organism Status: Acute Assessment and Plan: - patient was started on doxycycline and Ceftin - discussed case with pharmacist - cultures pending (3) Chronic renal failure, stage 3 (moderate): Code(s): N18.30 - Chronic kidney disease, stage 3 unspecified Status: Acute Assessment and Plan: - avoid nephrotoxic medication - unable to get IV access at this time. - Renal ultrasound - creatinine 2.4 today and it wa (4) Glaucoma: Code(s): H40.9 - Unspecified glaucoma Status: Acute Assessment and Plan: - continue with home eye drops (5) Pleural effusion: Code(s): J90 - Pleural effusion, not elsewhere classified Status: Acute Assessment and Plan: - thoracentesis set up for tomorrow. - Cytology ordered (6) Dementia: Code(s): F03.90 - Unspecified dementia without behavioral disturbance Status: Acute Assessment and Plan: - She takes Haldol - poor short-term memory (7) Anemia: Code(s): D64.9 - Anemia, unspecified Status: Acute Assessment and Plan: - continue to monitor - at baseline (8) Hypertension: Code(s): I10 - Essential (primary) hypertension Status: Acute Assessment and Plan: - continue amlodipine - continue Coreg (9) Chronic kidney disease: Code(s): N18.9 - Chronic kidney disease, unspecified Status: Acute (10) EVER (acute kidney injury): Code(s): N17.9 - Acute kidney failure, unspecified Status: Acute Subjective Date/time seen: 01/08/22 16:52 01/08/2022 Interval history: 81-year-old female [facility] depart due to abnormal chest x-ray patient is found to have pleural effusion and concerning for pneumonia or inflammatory process, patient is being treated with ceftriaxone and azithromycin, today patient had thoracentesis and 1000MLcloudy fluid was collected, will follow up on lab, today again patient was hypothermic and was patient was placed under bearhugger patient urine is also suspicious UTI being treated with ceftriaxone will follow-up on urine and blood culture, unfortunately patient is very poor historian, I spoke with patient daughter and gave updates, PT OT evaluate the patient and further re
[2022-01-08 17:03] LABS: Appearance Pleural Fluid Cloudy (Clear); Pleural fluid source Pleural fluid
[2022-01-08 17:04] LABS: Color Pleural Fluid Yellow (Colorless)
[2022-01-08 17:05] LABS: Lymphocytes Pleural Fluid 33 %; Macrophages Pleural Fluid 49 %; Monocytes Pleural Fluid 16 %; Neutrophils Pleural Fluid 2 % (0-25)
[2022-01-08] MEDS: PRAVASTATIN SODIUM 20 MG TABLET PO (19:51)
[2022-01-08] MEDS: HALOPERIDOL 1 MG TABLET 2 MG PO (19:52)
[2022-01-08] MEDS: HALOPERIDOL 0.5 MG TABLET PO (19:52)
[2022-01-09] VITALS (38 sets, daily range): BP systolic 126–186; BP diastolic 39–79; PULSE 58–87; RESP 10–29; TEMP 34.8–36.4; O2SAT 98–100
[2022-01-09] MEDS: hydrALAZINE HCL 20 MG/ML VIAL 10 MG IV PUSH ×2 (04:30→17:21)
[2022-01-09] MEDS: SALINE LOCK FLUSH 10 ML IV PUSH ×2 (04:30→21:19)
[2022-01-09 04:58] LABS: Hematocrit 28.4 % (37.0-47.0); Hemoglobin 8.9 g/dL (12.0-15.0); Mean Corpuscular HGB Conc 31.3 g/dl (32-36); Mean Corpuscular Hemoglobin 30.6 pg (26-34); Mean Corpuscular Volume 97.6 fl (80-100); Mean Platelet Volume 11.7 fl (7.4-10.4); Platelet Count Result 175 k/mm3 (150-375); Red Blood Count 2.91 M/mm3 (4.2-5.4); Red Cell Distribution Width 18.6 % (11.5-14.5); White Blood Count 4.6 K/mm3 (4.5-10.0)
[2022-01-09 05:24] LABS: Anion Gap 2 mmol/L (8-16); Blood Urea Nitrogen 16 mg/dL (7-17); Calcium 8.6 mg/dL (8.4-10.2); Carbon Dioxide 25 mmol/L (22-30); Chloride 112 mmol/L (98-107); Estimated CRCL calculation 20 ml/min; Estimated Glomerular Filt Rate 26; Glucose 96 mg/dL (65-110); Sodium 139 mmol/L (137-145)
--- NOTE | 2022-01-09 05:29 | PC.NURSE ---
Patient becoming increasingly confused, attempting to hit staff, refusing blood pressures, to stay in bed and yelling and screaming help. Patient assured to that she is in the hospital. Patient states no one knows what they are doing and she isn't in the hospital. Bed alarm is on as well as heart monitor. Continue to monitor.
[2022-01-09] MEDS: amLODIPine BESYLATE 5 MG TABLET 10 MG PO (09:24)
[2022-01-09] MEDS: buPROPion HCL SR (12HR) 100 MG TABCR PO ×2 (09:24→20:39)
[2022-01-09] MEDS: BENZTROPINE MESYLATE 1 MG TABLET PO (09:24)
[2022-01-09] MEDS: DORZOLAMIDE/TIMOLOL OPHTH SOL 10 ML BOTTLE 1 DROP EACH EYE (09:24)
[2022-01-09] MEDS: BRIMONIDINE TARTRATE 0.1% 5 ML OPHTH DROPS 1 DROP EACH EYE (09:24)
[2022-01-09] MEDS: carvediloL 3.125 MG TABLET PO ×2 (09:24→20:39)
[2022-01-09] MEDS: AMPICILLIN SULB 3 GM/NS 100 ML 3 GM/100 ML VIAL IVPB (13:48)
[2022-01-09] MEDS: SODIUM CHLORIDE 0.9% IV 1,000 ML 50 ML IV CONT (13:53)
--- NOTE | 2022-01-09 15:16 | PM.IMPN ---
Progress Note: A&P Assessment and Plan (1) UTI (urinary tract infection): Code(s): N39.0 - Urinary tract infection, site not specified Status: Acute Assessment and Plan: - Patient has no IV access at this time so we started Ceftin. It will need to be renally dosed. - Cultures pending 01/07/2022 Interval history: 81-year-old female a resident of [facility]f was sent to emergency depart due to abnormal chest x-ray patient is found to have pleural effusion and concerning for pneumonia or inflammatory process, patient is being treated with ceftriaxone and azithromycin, patient is also scheduled to have thoracentesis will follow, patient urine is also suspicious UTI being treated with ceftriaxone will follow-up on urine and blood culture, unfortunately patient is very poor historian, the PT OT evaluate the patient and further recommendation to follow 01/08/2022 Interval history: 81-year-old female a resident of alf was sent to emergency depart due to abnormal chest x-ray patient is found to have pleural effusion and concerning for pneumonia or inflammatory process, patient is being treated with ceftriaxone and azithromycin, today patient had thoracentesis and 1000MLcloudy fluid was collected, will follow up on lab, today again patient was hypothermic and was patient was placed under bearhugger patient urine is also suspicious UTI being treated with ceftriaxone will follow-up on urine and blood culture, unfortunately patient is very poor historian, I spoke with patient daughter and gave updates, PT OT evaluate the patient and further recommendation to follow. 01/09/2022 Interval history: 81-year-old female a resident of alf was sent to emergency depart due to abnormal chest x-ray patient is found to have pleural effusion and concerning for pneumonia or inflammatory process, patient is being treated with ceftriaxone and azithromycin, on 01/08 patient had thoracentesis and 1000MLcloudy fluid was collected, Gram stain did not show any organism, will follow up on lab culture, on 01/08 again patient was hypothermic and was patient was placed under bearhugger, patient with dementia does not keep bearhugger on all the time and it is difficulty to control body temp however it is improving, patient urine is also suspicious UTI being treated with ceftriaxone will follow-up on urine and blood culture, unfortunately patient is very poor historian, I spoke with patient daughter and gave updates, also suggested to considered comfort care or hospice for the patient, PT OT evaluate the patient and further recommendation to follow (2) Pneumonia: Code(s): J18.9 - Pneumonia, unspecified organism Status: Acute Assessment and Plan: - patient was started on doxycycline and Ceftin - discussed case with pharmacist - cultures pending (3) Chronic renal failure, stage 3 (moderate): Code(s): N18.30 - Chronic kidney disease, stage 3 unspecified Status: Acute Assessment and Plan: - avoid nephrotoxic medication - unable to get IV access at this time. - Renal ultrasound - creatinine 2.4 today and it wa (4) Glaucoma: Code(s): H40.9 - Unspecified glaucoma Status: Acute Assessment and Plan: - continue with home eye drops (5) Pleural effusion: Code(s): J90 - Pleural effusion, not elsewhere classified Status: Acute Assessment and Plan: - thoracentesis set up for tomorrow. - Cytology ordered (6) Dementia: Code(s): F03.90 - Unspecified dementia without behavioral disturbance Status: Acute Assessment and Plan: - She takes Haldol - poor short-term memory (7) Anemia: Code(s): D64.9 - Anemia, unspecified Status: Acute Assessment and Plan: - continue to monitor - at baseline (8) Hypertension: Code(s): I10 - Essential (primary) hypertension Status: Acute Assessment and Plan: - continue amlodipine - contin
[2022-01-09] MEDS: HALOPERIDOL 0.5 MG TABLET PO (20:38)
[2022-01-09] MEDS: HALOPERIDOL 1 MG TABLET 2 MG PO (20:38)
[2022-01-09] MEDS: DIPHENHYDRAMINE 1%/ZINC 0.1% CREAM 30 GM TUBE 1 APPLIC TOPICAL (20:38)
[2022-01-09] MEDS: PRAVASTATIN SODIUM 20 MG TABLET PO (20:39)
[2022-01-10] VITALS (33 sets, daily range): BP systolic 129–165; BP diastolic 48–77; PULSE 60–89; RESP 10–21; TEMP 34.8–36.9; O2SAT 90–100
[2022-01-10] MEDS: AMPICILLIN SULB 3 GM/NS 100 ML 3 GM/100 ML VIAL IVPB ×2 (01:30→12:10)
[2022-01-10] MEDS: SALINE LOCK FLUSH 10 ML IV PUSH ×3 (05:05→23:10)
[2022-01-10 05:16] LABS: Hematocrit 25.1 % (37.0-47.0); Hemoglobin 7.9 g/dL (12.0-15.0); Mean Corpuscular HGB Conc 31.5 g/dl (32-36); Mean Corpuscular Hemoglobin 30.3 pg (26-34); Mean Corpuscular Volume 96.2 fl (80-100); Platelet Count Result 168 k/mm3 (150-375); Red Blood Count 2.61 M/mm3 (4.2-5.4); Red Cell Distribution Width 18.6 % (11.5-14.5); White Blood Count 3.7 K/mm3 (4.5-10.0)
[2022-01-10 05:25] LABS: Anion Gap 1 mmol/L (8-16); Blood Urea Nitrogen 15 mg/dL (7-17); Calcium 8.2 mg/dL (8.4-10.2); Carbon Dioxide 26 mmol/L (22-30); Chloride 113 mmol/L (98-107); Estimated CRCL calculation 20 ml/min; Estimated Glomerular Filt Rate 26; Glucose 98 mg/dL (65-110); Potassium 3.8 mmol/L (3.4-5.0); Sodium 140 mmol/L (137-145)
[2022-01-10] MEDS: amLODIPine BESYLATE 5 MG TABLET 10 MG PO (08:21)
[2022-01-10] MEDS: DORZOLAMIDE/TIMOLOL OPHTH SOL 10 ML BOTTLE 1 DROP EACH EYE (08:21)
[2022-01-10] MEDS: BRIMONIDINE TARTRATE 0.1% 5 ML OPHTH DROPS 1 DROP EACH EYE (08:21)
[2022-01-10] MEDS: FERROUS GLUCONATE 324 MG TABLET PO (08:21)
[2022-01-10] MEDS: carvediloL 3.125 MG TABLET PO ×2 (08:22→20:02)
[2022-01-10] MEDS: BENZTROPINE MESYLATE 1 MG TABLET PO (08:23)
[2022-01-10] MEDS: LINEZOLID 600 MG TABLET PO ×2 (08:25→20:02)
[2022-01-10] MEDS: SODIUM CHLORIDE 0.9% IV 1,000 ML 50 ML IV CONT (12:07)
--- NOTE | 2022-01-10 17:51 | PM.IMPN ---
Progress Note: A&P Assessment and Plan (1) UTI (urinary tract infection): Code(s): N39.0 - Urinary tract infection, site not specified Status: Acute Assessment and Plan: - Patient has no IV access at this time so we started Ceftin. It will need to be renally dosed. - Cultures pending 01/07/2022 Interval history: 81-year-old female a resident of long-term was sent to emergency depart due to abnormal chest x-ray patient is found to have pleural effusion and concerning for pneumonia or inflammatory process, patient is being treated with ceftriaxone and azithromycin, patient is also scheduled to have thoracentesis will follow, patient urine is also suspicious UTI being treated with ceftriaxone will follow-up on urine and blood culture, unfortunately patient is very poor historian, the PT OT evaluate the patient and further recommendation to follow 01/08/2022 Interval history: 81-year-old female a resident of long-term was sent to emergency depart due to abnormal chest x-ray patient is found to have pleural effusion and concerning for pneumonia or inflammatory process, patient is being treated with ceftriaxone and azithromycin, today patient had thoracentesis and 1000MLcloudy fluid was collected, will follow up on lab, today again patient was hypothermic and was patient was placed under bearhugger patient urine is also suspicious UTI being treated with ceftriaxone will follow-up on urine and blood culture, unfortunately patient is very poor historian, I spoke with patient daughter and gave updates, PT OT evaluate the patient and further recommendation to follow. 01/09/2022 Interval history: 81-year-old female a resident of long-term was sent to emergency depart due to abnormal chest x-ray patient is found to have pleural effusion and concerning for pneumonia or inflammatory process, patient is being treated with ceftriaxone and azithromycin, on 01/08 patient had thoracentesis and 1000MLcloudy fluid was collected, Gram stain did not show any organism, will follow up on lab culture, on 01/08 again patient was hypothermic and was patient was placed under bearhugger, patient with dementia does not keep bearhugger on all the time and it is difficulty to control body temp however it is improving, patient urine is also suspicious UTI being treated with ceftriaxone will follow-up on urine and blood culture, unfortunately patient is very poor historian, I spoke with patient daughter and gave updates, also suggested to considered comfort care or hospice for the patient, PT OT evaluate the patient and further recommendation to follow, 01/10/2022 Interval history: 81-year-old female a resident of long-term was sent to emergency depart due to abnormal chest x-ray patient is found to have pleural effusion and concerning for pneumonia or inflammatory process, patient is being treated with ceftriaxone and azithromycin, on 01/08, today discuss with intensivisit and recommended to Zyvox, UA is growing enterococcus added Unasyn, patient had thoracentesis and 1000MLcloudy fluid was collected, Gram stain did not show any organism, will follow up on lab culture, on 01/08 again patient was hypothermic and was patient was placed under bearhugger, patient with dementia does not keep bearhugger on all the time and it is difficulty to control body temp however it is improving,, unfortunately patient is very poor historian, on 01/09 I spoke with patient daughter and gave updates, also suggested to considered comfort care or hospice for the patient, PT OT evaluate the patient and further recommendation to follow (2) Pneumonia: Code(s): J18.9 - Pneumonia, unspecified organism Status: Acute Assessment and Plan: - patient was started on doxycycline and Ceftin - discussed case with pharmacist - cultures pending (3) Chronic renal failure, stage 3 (moderate): Code(s): N18.30 - Chronic kidney disease, stage 3 unspecified Status: Acut
[2022-01-10] MEDS: HALOPERIDOL 1 MG TABLET 2 MG PO (20:02)
[2022-01-10] MEDS: HALOPERIDOL 0.5 MG TABLET PO (20:02)
[2022-01-10] MEDS: PRAVASTATIN SODIUM 20 MG TABLET PO (20:02)
--- NOTE | 2022-01-10 23:30 | PC.NURSE ---
This patient, Pat Gil, was transferred to [206-1 ] on 01/10/22 at 2330. Personal belongings sent with patient. Report given to [Shalonda PARISH]. Appropriate documentation sent with patient.
--- NOTE | 2022-01-10 23:46 | PC.NURSE ---
PATIENT TRANSFERRED FROM ICU. REPORT GIVEN BY ALICIA HAUSER RN. AT 2330.
[2022-01-11] VITALS (12 sets, daily range): BP systolic 154–183; BP diastolic 48–75; PULSE 53–79; RESP 12–20; TEMP 35.7–36.5; O2SAT 97–100
[2022-01-11] MEDS: AMPICILLIN SULB 3 GM/NS 100 ML 3 GM/100 ML VIAL IVPB ×2 (00:45→13:46)
[2022-01-11] MEDS: SALINE LOCK FLUSH 10 ML IV PUSH ×3 (05:00→21:29)
[2022-01-11 05:09] LABS: Hematocrit 23.5 % (37.0-47.0); Hemoglobin 7.8 g/dL (12.0-15.0); Mean Corpuscular HGB Conc 33.2 g/dl (32-36); Mean Corpuscular Volume 93.3 fl (80-100); Mean Platelet Volume 11.4 fl (7.4-10.4); Platelet Count Result 165 k/mm3 (150-375); Red Blood Count 2.52 M/mm3 (4.2-5.4); White Blood Count 4.4 K/mm3 (4.5-10.0)
[2022-01-11] MEDS: SODIUM CHLORIDE 0.9% IV 1,000 ML 50 ML IV CONT (05:14)
[2022-01-11 05:19] LABS: Anion Gap 10 mmol/L (8-16); Blood Urea Nitrogen 14 mg/dL (7-17); Calcium 8.7 mg/dL (8.4-10.2); Carbon Dioxide 21 mmol/L (22-30); Chloride 115 mmol/L (98-107); Estimated CRCL calculation 22 ml/min; Estimated Glomerular Filt Rate 29; Glucose 97 mg/dL (65-110); Potassium 4.1 mmol/L (3.4-5.0); Sodium 146 mmol/L (137-145)
[2022-01-11] MEDS: BRIMONIDINE TARTRATE 0.1% 5 ML OPHTH DROPS 1 DROP EACH EYE (09:31)
[2022-01-11] MEDS: amLODIPine BESYLATE 5 MG TABLET 10 MG PO (09:31)
[2022-01-11] MEDS: carvediloL 3.125 MG TABLET PO ×2 (09:32→21:04)
[2022-01-11] MEDS: LINEZOLID 600 MG TABLET PO ×2 (09:33→21:04)
[2022-01-11] MEDS: DORZOLAMIDE/TIMOLOL OPHTH SOL 10 ML BOTTLE 1 DROP EACH EYE (09:33)
[2022-01-11] MEDS: BENZTROPINE MESYLATE 1 MG TABLET PO (09:34)
[2022-01-11 12:51] LABS: Glucose Pleural Fluid 96 mg/dL; LDH Pleural Fluid 94 U/L; Total Protein Pleural Fluid <3.0 g/dL
--- NOTE | 2022-01-11 13:21 | PM.IMPN ---
Progress Note: A&P Assessment and Plan (1) UTI (urinary tract infection): Code(s): N39.0 - Urinary tract infection, site not specified Status: Acute Assessment and Plan: Continue Zyvox for total 5 days (2) Pneumonia: Code(s): J18.9 - Pneumonia, unspecified organism Status: Acute Assessment and Plan: Patient has been treated will stop IV antibiotics today (3) Chronic renal failure, stage 3 (moderate): Code(s): N18.30 - Chronic kidney disease, stage 3 unspecified Status: Acute Assessment and Plan: Creatinine 2.0, improving, monitor (4) Glaucoma: Code(s): H40.9 - Unspecified glaucoma Status: Acute Assessment and Plan: - continue with home eye drops (5) Pleural effusion: Code(s): J90 - Pleural effusion, not elsewhere classified Status: Acute Assessment and Plan: status post thoracentesis Will DC antibiotics today (6) Dementia: Code(s): F03.90 - Unspecified dementia without behavioral disturbance Status: Acute Assessment and Plan: - She takes Haldol - poor short-term memory (7) Anemia: Code(s): D64.9 - Anemia, unspecified Status: Acute Assessment and Plan: - continue to monitor - at baseline (8) Hypertension: Code(s): I10 - Essential (primary) hypertension Status: Acute Assessment and Plan: - continue amlodipine - continue Coreg (9) Chronic kidney disease: Code(s): N18.9 - Chronic kidney disease, unspecified Status: Acute (10) EVER (acute kidney injury): Code(s): N17.9 - Acute kidney failure, unspecified Status: Acute Subjective Date/time seen: 01/11/22 13:21 No complaints Exam Narrative: Patient is comfortable, NAD HEENT: eyes are clear and none icteric LUNGS: normal respiratory effort ABD: distended Lower extremities: no edema SKIN: nonjaundiced Neuro: grossly intact poor historian. Objective Data Vital Signs Vital Signs: Vital Signs - 24 hr 01/10/22 14:00 01/10/22 14:00 01/10/22 14:17 Temperature 97 F L 97.1 F L Pulse Rate 77 76 Respiratory Rate 21 H Blood Pressure Pulse Oximetry Oxygen Delivery 01/10/22 16:00 01/10/22 18:00 01/10/22 18:00 Temperature 97.2 F L Pulse Rate 77 Respiratory Rate Blood Pressure Pulse Oximetry Oxygen Delivery Room Air 01/10/22 15:01 01/10/22 16:00 01/10/22 16:39 Temperature 96.6 F L 96.1 F L 95.8 F L Pulse Rate 73 69 71 Respiratory Rate 16 11 L 10 L Blood Pressure 165/63 H Pulse Oximetry 90 Oxygen Delivery 01/10/22 17:00 01/10/22 17:01 01/10/22 19:00 Temperature 95.9 F L 95.9 F L 98.3 F Pulse Rate 74 71 Respiratory Rate 13 12 Blood Pressure 155/55 H Pulse Oximetry 90 90 Oxygen Delivery 01/10/22 19:56 01/10/22 19:56 01/10/22 20:02 Temperature 98.5 F 98.5 F Pulse Rate 79 80 Respiratory Rate 12 Blood Pressure 145/62 H Pulse Oximetry 97 Oxygen Delivery 01/10/22 20:00 01/10/22 21:00 01/10/22 20:00 Temperature 97.3 F L Pulse Rate 76 Respiratory Rate Blood Pressure Pulse Oximetry Oxygen Delivery Room Air 01/10/22 22:00 01/10/22 22:00 01/10/22 22:15 Temperature 96.4 F L 96.4 F L Pulse Rate 89 Respiratory Rate Blood Pressure Pulse Oximetry Oxygen Delivery 01/10/22 22:15 01/10/22 22:30 01/10/22 22:30 Temperature 96.4 F L 96.3 F L 96.3 F L Pulse Rate 86 76 Respiratory Rate Blood Pressure Pulse Oximetry Oxygen Delivery 01/10/22 22:45 01/10/22 22:45 01/10/22 23:00 Temperature 96.3 F L 96.3 F L 96.2 F L Pulse Rate 72 Respiratory Rate Blood Pressure Pulse Oximetry Oxygen Delivery 01/10/22 23:00 01/11/22 00:00 01/11/22 00:00 Temperature 96.2 F L 96.2 F L Pulse Rate 78 71 Respiratory Rate Blood Pressure Pulse Oximetry Oxygen Delivery 01/11/22 00:00 01/11/22 01:00 01/11/22 02:00 Temper
--- NOTE | 2022-01-11 15:22 | PC.NURSE ---
On 01/11/22, the student, [Jessica Nichols], provided care and completed [facility] documentation on this patient. I have reviewed the student's documentation and agree with the findings.
[2022-01-11] MEDS: HALOPERIDOL 1 MG TABLET 2 MG PO (21:04)
[2022-01-11] MEDS: PRAVASTATIN SODIUM 20 MG TABLET PO (21:04)
[2022-01-11] MEDS: HALOPERIDOL 0.5 MG TABLET PO (21:04)
[2022-01-12] VITALS (14 sets, daily range): BP systolic 150–189; BP diastolic 50–83; PULSE 58–73; RESP 12–18; TEMP 34.1–36.4; O2SAT 100
[2022-01-12] MEDS: SODIUM CHLORIDE 0.9% IV 1,000 ML 50 ML IV CONT (01:40)
[2022-01-12] MEDS: SALINE LOCK FLUSH 10 ML IV PUSH ×2 (04:26→13:23)
--- NOTE | 2022-01-12 04:32 | PC.NURSE ---
Francine weller applied at 0425 for core temp of 93.6F per provider order. Core thermometer on zaragoza catheter being utilized for [id number] temps.
[2022-01-12 04:35] LABS: Hematocrit 25.2 % (37.0-47.0); Hemoglobin 7.9 g/dL (12.0-15.0); Mean Corpuscular HGB Conc 31.3 g/dl (32-36); Mean Corpuscular Hemoglobin 30.3 pg (26-34); Mean Corpuscular Volume 96.6 fl (80-100); Mean Platelet Volume 10.1 fl (7.4-10.4); Platelet Count Result 151 k/mm3 (150-375); Red Blood Count 2.61 M/mm3 (4.2-5.4); Red Cell Distribution Width 18.5 % (11.5-14.5); White Blood Count 3.3 K/mm3 (4.5-10.0)
[2022-01-12 04:46] LABS: Anion Gap 4 mmol/L (8-16); Blood Urea Nitrogen 11 mg/dL (7-17); Calcium 8.6 mg/dL (8.4-10.2); Carbon Dioxide 25 mmol/L (22-30); Chloride 116 mmol/L (98-107); Estimated CRCL calculation 19 ml/min; Estimated Glomerular Filt Rate 29; Glucose 139 mg/dL (65-110); Potassium 3.7 mmol/L (3.4-5.0); Sodium 145 mmol/L (137-145)
--- NOTE | 2022-01-12 06:51 | PC.NURSE ---
Dr Auguste notified pt frequently refusing ramona hugger, ordered to attempt to keep pt covered, no additional orders or transfer order received. This nurse attempted to call family notify them of situation and request assistance, family did not answer calls. Will continue to keep pt covered with ramona hugger and warm blankets.
[2022-01-12] MEDS: FERROUS GLUCONATE 324 MG TABLET PO (08:41)
[2022-01-12] MEDS: DORZOLAMIDE/TIMOLOL OPHTH SOL 10 ML BOTTLE 1 DROP EACH EYE (08:41)
[2022-01-12] MEDS: BENZTROPINE MESYLATE 1 MG TABLET PO (08:41)
[2022-01-12] MEDS: amLODIPine BESYLATE 5 MG TABLET 10 MG PO (08:41)
[2022-01-12] MEDS: carvediloL 3.125 MG TABLET PO (08:41)
[2022-01-12] MEDS: LINEZOLID 600 MG TABLET PO (08:46)
--- NOTE | 2022-01-12 10:57 | PM.DS ---
DS: Admitting Diagnosis Discharge Date January 12, 2022 Admitting Diagnosis UTI, pneumonia DS: Discharge Diagnosis Discharge Diagnosis (1) UTI (urinary tract infection): Code(s): N39.0 - Urinary tract infection, site not specified Status: Acute Assessment and Plan: Continue Zyvox for total 5 days (2) Pneumonia: Code(s): J18.9 - Pneumonia, unspecified organism Status: Acute Assessment and Plan: Patient has been treated will stop IV antibiotics today Thoracentesis was performed. Ongoing cytology will need to be followed up with as an outpatient. (3) Chronic renal failure, stage 3 (moderate): Code(s): N18.30 - Chronic kidney disease, stage 3 unspecified Status: Acute Assessment and Plan: Creatinine 2.0, improving, monitor (4) Glaucoma: Code(s): H40.9 - Unspecified glaucoma Status: Acute Assessment and Plan: - continue with home eye drops (5) Pleural effusion: Code(s): J90 - Pleural effusion, not elsewhere classified Status: Acute Assessment and Plan: status post thoracentesis Will DC antibiotics today (6) Dementia: Code(s): F03.90 - Unspecified dementia without behavioral disturbance Status: Acute Assessment and Plan: - She takes Haldol - poor short-term memory (7) Anemia: Code(s): D64.9 - Anemia, unspecified Status: Acute Assessment and Plan: - continue to monitor - at baseline (8) Hypertension: Code(s): I10 - Essential (primary) hypertension Status: Acute Assessment and Plan: - continue amlodipine - continue Coreg (9) Chronic kidney disease: Code(s): N18.9 - Chronic kidney disease, unspecified Status: Acute (10) EVER (acute kidney injury): Code(s): N17.9 - Acute kidney failure, unspecified Status: Acute DS: Summary Hospital Course Hospital Course: Patient is a 81-year-old female with history of severe dementia. Patient was sent into the hospital from [facility] due to abnormal chest x-ray. Patient while in the emergency room was evaluated and ultimately admitted for pneumonia. She was also found to have UTI. Patient was started on antibiotics for both and did well. Also to report patient has recently had a drop in appetite does not eat very well. Patient was negative for COVID. After starting on antibiotics patient clinically had improved. She does have underlying severe dementia. She will be sent home a couple more days of Zyvox and her pneumonia has been treated. Thoracentesis was performed for fluid on the lungs so far cultures are they have been negative. This will need to be follow-up with 1000 outpatient with her primary care physician. Otherwise her pneumonia is completely treated at this time. Patient has a high risk for readmission. There was also a conversation about hospice which patient is appropriate for but POA did not want to proceed with hospice. Time Spent with Patient Time attestation: Total time spent providing and/or coordinating discharge services: Exam Narrative: Patient is comfortable, NAD HEENT: eyes are clear and none icteric LUNGS: normal respiratory effort ABD: distended Lower extremities: no edema SKIN: nonjaundiced Neuro: grossly intact poor historian. DS: Data Data Completed and Pending Completed studies during hospitalization: Pending at discharge 01/06/22 15:30 Cytology [PTH] Routine Labs on day of discharge: Labs from last 24 hours 01/12/22 01/12/22 01/08/22 04:29 04:29 15:36 WBC 3.3 L RBC 2.61 L Hgb 7.9 L Hct 25.2 L MCV 96.6 MCH 30.3 MCHC 31.3 L RDW 18.5 H Plt Count 151 MPV 10.1 Sodium 145 Potassium 3.7 Chloride 116 H Carbon Dioxide 25 Anion Gap 4 L BUN 11 Creatinine 2.00 H Estim Creat Clear Calc 19 Estimated GFR 29 L Glucose 139 H Calcium 8.6 Pleural Total P
[2022-01-12 11:55] LABS: EDCOVIDSCREEN Positive (Negative)
[2022-01-12] MEDS: hydrALAZINE HCL 20 MG/ML VIAL 10 MG IV PUSH (13:20)
[2022-01-12 14:17] LABS: SARS-CoV-2 RNA PCR Negative
[2022-01-12 23:04] LABS: Albumin Pleural Fluid 1.4 g/dL
[2022-01-17 14:56] LABS: Amylase, Pleural Fluid <10 U/L
== END 2022-01-12 18:00 | DRG 194 ==
LOC: ANHED 07:12 → ANH3MEDSUR 09:54 → ANHIMU 23:10 → ANH2MED 01-07 17:45 → ANHICU 01-09 13:04 → ANH2MED 01-12 10:57 → ANHICU 01-16 11:22 → ANHIMU 01-16 11:22
PROVIDERS: Emergency Medicine; Family Medicine; Nurse Practitioner; Admitting Provider Internal Medicine; Emergency Provider Emergency Medicine; PCP Internal Medicine; Visit Provider Chiropractor
DX: J18.9 Pneumonia, unspecified organism (principal); I13.0 Hypertensive heart and chronic kidney disease with heart failure and stage 1 through stage 4 chronic kidney disease, or unspecified chronic kidney disease; N39.0 Urinary tract infection, site not specified; I50.32 Chronic diastolic (congestive) heart failure; N17.9 Acute kidney failure, unspecified; J90 Pleural effusion, not elsewhere classified; N18.30 Chronic kidney disease, stage 3 unspecified; E78.5 Hyperlipidemia, unspecified; K21.9 Gastro-esophageal reflux disease without esophagitis; H40.9 Unspecified glaucoma; F03.90 Unspecified dementia, unspecified severity, without behavioral disturbance, psychotic disturbance, mood disturbance, and anxiety; F41.9 Anxiety disorder, unspecified; D64.9 Anemia, unspecified; Z20.822 Contact with and (suspected) exposure to COVID-19
CPT/HCPCS: 32555; 36415; 36569; 71045; 71250; 76775; 80048; 80053; 81001; 82040; 82042; 82150; 82247; 82465; 82945; 82947; 82948; 83605; 83615; 83735; 83880; 83986; 84145; 84155; 84157; 84311; 84443; 84478; 85025; 85027; 85055; 85380; 85610; 85730; 87015; 87040; 87070; 87075; 87086; 87102; 87116; 87147; 87181; 87186; 87205; 87206; 87426; 87502; 88108; 88184; 88305; 89051; 93005; 94640; 96361; 96365; 96366; 96367; 96375; 99285; A9270; C1751; C9803; G0378; J0295; J0360; J0456; J0696; J1940; J7030; U0003; U0005

== ENCOUNTER 2022-03-09 01:59 | Inpatient (IN) | payer MEDICARE, MEDICAID, SELFPAY ==
--- NOTE | ~2022-03-09 | XR_ITS ---
EXAMINATION: XR chest 1V portable DATE: 03/14/2022 03:04 INDICATION: Shortness of breath. TECHNIQUE: A single frontal view of the chest was obtained. COMPARISON: Chest single view 03/12/2022, chest CT 01/06/2022 FINDINGS: There is a diffuse interstitial pattern in the lungs. There are airspace opacities in the l ower lung zones. No pneumothorax. There are small pleural effusions. The heart size is normal. IMPRESSION: 1. Worsened diffuse lung disease, consistent with pulmonary edema and basilar atelectasis versus pneu monia. 2. Improved small pleural effusions. Reviewed, dictated and finalized at location A. IMPRESSION: 1. Worsened diffuse lung disease, consistent with pulmonary edema and basilar a telectasis versus pneumonia. 2. Improved small pleural effusions.
--- NOTE | ~2022-03-09 | XR_ITS ---
EXAMINATION: XR chest 1V portable Exam Date/Time: 03/14/2022 20:48 CDT HISTORY: sob, low O2 sats, placed on bipap Comparison: Same date at 2:45 AM. RESULT: Lines, tubes, and devices: None. Lungs and pleura: Increased medial bibasilar airspace opacities with stable diffuse reticular opacit ies. Cardiomediastinal silhouette: Stable. Other: No acute osseous or upper abdominal finding. IMPRESSION: Worsening bilateral lower lung atelectasis/consolidation with otherwise stable reticular opacities li claudia representing interstitial edema. Reviewed, dictated and finalized at location K. IMPRESSION: Worsening bilateral lower lung atelectasis/consolidation with otherwise stable reticular opacities likely representing interstitial edema.
--- NOTE | ~2022-03-09 | US_ITS ---
EXAMINATION: US thoracentesis DATE: 03/12/2022 12:39 INDICATION: pleural effusion TECHNIQUE: The procedure and its risks, benefits, and alternatives were discussed with the patient's daughter. Potential risks discussed included bleeding, infection, and pneumothorax. The patient's elisabet jorgeter understood the risks and agreed to proceed. The skin was prepped and draped in sterile fashion. 1% lidocaine was used for local anesthesia. Under ultrasound guidance, a 5 Fr catheter with trochar was advanced into the right pleural effusion. Fluid was aspirated. The catheter was removed, and a dr essing was applied. There were no immediate complications. FINDINGS: Ultrasound images demonstrate a right pleural effusion and the catheter within the fluid. IMPRESSION: 1. Successful ultrasound-guided thoracentesis yielding 1000 mL of yellow fluid. Reviewed, dictated and finalized at location A. IMPRESSION: 1. Successful ultrasound-guided thoracentesis yielding 1000 mL of yellow fluid .
--- NOTE | ~2022-03-09 | XR_ITS ---
EXAMINATION: [id number] DATE: 03/12/2022 12:28 INDICATION: Pleural effusion status post thoracentesis. TECHNIQUE: A single frontal view of the chest was obtained. COMPARISON: Chest single view 01/08/2022, chest CT 01/06/2022 FINDINGS: There are small pleural effusions. There are airspace opacities at the lung bases. No pneum othorax. Cardiomegaly is noted. IMPRESSION: 1. Small pleural effusions. 2. Airspace opacities at the lung bases, likely atelectasis. 3. Cardiomegaly. Reviewed, dictated and finalized at location A.
--- NOTE | ~2022-03-09 | XR_ITS ---
EXAMINATION: XR chest 1V portable DATE: 03/16/2022 02:37 INDICATION: Hypoxia. TECHNIQUE: A single frontal view of the chest was obtained. COMPARISON: Chest single view 03/14/2022, chest CT 01/06/2022 FINDINGS: There are small pleural effusions. There are airspace opacities in the perihilar regions an d left lung base. No pneumothorax. The heart size is normal. IMPRESSION: 1. Small pleural effusions. 2. Airspace opacities in the perihilar regions and at left lung base, likely a combination of pulmona ry edema and atelectasis versus pneumonia. Reviewed, dictated and finalized at location A. IMPRESSION: 1. Small pleural effusions. 2. Airspace opacities in the perihilar regions and at left lung base, likely a combination of pulmonary edema and atelectasis versus pneumonia.
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
--- NOTE | ~2022-03-09 | XR_ITS ---
EXAMINATION: XR chest 1V portable INDICATION: Weakness TECHNIQUE: Portable AP chest at 0 to 41 hours COMPARISON: 01/08/2022 FINDINGS: There is a moderate size right pleural effusion. There are airspace opacities of the right lung base. No pneumothorax is identified. The heart size is normal. 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 IMPRESSION: 1. Moderate size right pleural effusion with likely passive atelectasis of the right lung base. Reviewed, dictated and finalized at location F.
[2022-03-09 02:10] LABS: Glucose Point of Care 65 mg/dl (65-105)
[2022-03-09 02:11] VITALS: PULSE 73; RESP 14; TEMP 36.8; O2SAT 95
--- NOTE | 2022-03-09 02:13 | ECG_ITS ---
Measurements Intervals [place] Rate: 73 P: 77 IA: 231 QRS: 0 QRSD: 154 T: 67 QT: 429 QTc: 475 Interpretive Statements SINUS RHYTHM WITH FIRST DEGREE AV BLOCK BASELINE ARTIFACT RIGHT BUNDLE BRANCH BLOCK ABNORMAL ECG COMPARED TO ECG 01/06/2022 06:15:18 FIRST DEGREE AV BLOCK NOW PRESENT Electronically Signed On 03-09-2022 16:40:13 CDT by Ed Marshall M.D.
--- NOTE | 2022-03-09 02:17 | ED.GENADULT ---
HPI - General Adult General Chief complaint: Weakness Stated complaint: pl effusions Time Seen by Provider: 03/09/22 02:09 History of Present Illness HPI narrative: Patient 81-year-old female who presents the emergency department with chief complaint of hypoglycemia generalized weakness patient is a resident of a local skilled nursing. They report that the patient has not been eating and drinking and blood sugars were very low the patient refused to take any oral glucose and refused to let the nursing staff draw blood from her. The patient also was found to have a pleural effusion on chest x-ray Related Data Home Medications Medication Instructions Recorded Confirmed benztropine 1 mg tablet 1 mg PO DAILY 11/22/21 01/06/22 brimonidine 0.1 % eye drops 1 drp EACH EYE DAILY Unspecified 11/22/21 01/06/22 (Alphagan P) Glaucoma carvedilol 3.125 mg tablet 1 tablet PO BID 11/22/21 01/06/22 dorzolamide 22.3 mg-timolol 6.8 1 drp EACH EYE DAILY 11/22/21 01/06/22 mg/mL eye drops famotidine 20 mg tablet 20 mg PO BID 11/22/21 01/06/22 ondansetron HCl 4 mg tablet 4 mg PO Q6H PRN Nausea And Vomiting 11/22/21 01/06/22 pravastatin 20 mg tablet 20 mg PO DAILY 11/22/21 01/06/22 aluminum-mag hydroxide-simethicone 20 ml PO Q6H PRN Heartburn 11/23/21 01/06/22 200 mg-200 mg-20 mg/5 mL oral susp (Maalox Advanced) polyethylene glycol 3350 17 gram 17 g PO DAILY PRN Constipation 11/23/21 01/06/22 oral powder packet (Miralax) amlodipine 10 mg tablet 10 mg PO DAILY 01/06/22 01/06/22 Allergies Allergy/AdvReac Type Severity Reaction Status Date / Time Sulfa (Sulfonamide Allergy Unknown Verified 01/06/22 02:34 Antibiotics) Review of Systems Review of Systems: A 10 system review of systems was completed on the patient and is negative except for what is stated in the HPI. Nursing and ancillary documentation was reviewed. [facility] Past Medical History Medical History Anxiety Chronic diastolic heart failure Chronic kidney disease Chronic renal failure, stage 3 (moderate) Dementia GERD (gastroesophageal reflux disease) Glaucoma Hyperlipidemia Hypertension Surgical History Surgical History H/O cataract extraction History of bilateral tubal ligation Family History Family History Son Heart disease Son Traumatic brain injury Mother Heart disease Hypertension Diabetes mellitus Father Hypertension Lung cancer Social History Social History Social History: the patient resides at [facility]. power of immigration attorney is Romina jacobs. The patient had 7 children and 2 of . The patient is and she is retired. code status DNR Smoking status: Never smoker Second hand tobacco smoke exposure: No Alcohol intake: unknown Substance use: never Substance use type: does not use Spiritual care concerns: No Exam Narrative: GENERAL: Well-appearing, well-nourished, and in no acute distress. HEAD: Normocephalic, atraumatic. EYES: PERRLA and EOMI. ENT: Nares clear, no rhinorrhea or epistaxis. Mucous membranes moist. NECK: Supple. CHEST: Clear to auscultation. No respiratory distress. HEART: Regular rate and rhythm. No murmur heard. Normal peripheral pulses. ABDOMEN: Soft, nontender, nondistended, normal active bowel sounds. EXTREMITIES: Normal range of motion. No edema. SKIN: Warm, dry, no rash. NEURO: ANO x1. PSYCH: Normal mood and affect. Course Vital Signs Vital signs: Vital Signs Temperature 36.8 C 03/09/22 02:11 Pulse Rate 73 03/09/22 02:11 Respiratory Rate 14 03/09/22 02:11 Pulse Oximetry 95 03/09/22 02:11 Oxygen Delivery Room Air 03/09/22 02:11 Temperature 36.8 C 03/09/22 02:11 Pulse Rate
[2022-03-09 02:28] LABS: Basophils Percent Auto 0.3 % (0.2-1.2); Eosinophils Percent Auto 1.1 % (0-4.4); Hematocrit 30.3 % (37.0-47.0); Hemoglobin 9.5 g/dL (12.0-15.0); Immature Granulocyte Absolute 0.01 K/mm3 (0.00-0.031); Immature Granulocyte Percent A 0.3 % (0-0.5); Lymphocytes Absolute Auto 0.75 K/mm3 (0.9-3.2); Mean Corpuscular HGB Conc 31.4 g/dl (32-36); Mean Corpuscular Hemoglobin 30.7 pg (26-34); Mean Corpuscular Volume 98.1 fl (80-100); Mean Platelet Volume 11.8 fl (7.4-10.4); Monocytes Absolute Auto 0.1 K/mm3 (0.1-0.6); Monocytes Percent Auto 3.7 % (2.6-8.5); Neutrophils Absolute Auto 2.8 K/mm3 (1.3-6.7); Neutrophils Percent Auto 74.6 % (45.5-73.1); Nucleated Red Blood Cells Perc 0.8 % (0.0-0.2); Platelet Count Result 136 k/mm3 (150-375); Red Blood Count 3.09 M/mm3 (4.2-5.4); White Blood Count 3.8 K/mm3 (4.5-10.0)
[2022-03-09 02:42] LABS: Lactic Acid Reflex 1.5 mmol/L (0.7-2.0)
[2022-03-09 02:43] LABS: Alanine Aminotransferase 21 U/L (6-35); Albumin Level 3.9 g/dL (3.5-5.1); Alkaline Phosphatase 185 U/L (38-126); Anion Gap 8 mmol/L (8-16); Aspartate Amino Transferase 37 U/L (14-36); Bilirubin,Total 0.8 mg/dL (0.2-1.3); Blood Urea Nitrogen 22 mg/dL (7-17); Calcium 9.4 mg/dL (8.4-10.2); Carbon Dioxide 21 mmol/L (22-30); Chloride 118 mmol/L (98-107); Estimated Glomerular Filt Rate 25; Glucose 79 mg/dL (65-110); Magnesium 2.1 mg/dL (1.6-2.3); Potassium 5.1 mmol/L (3.4-5.0); Sodium 147 mmol/L (137-145)
[2022-03-09 02:48] LABS: Add Urine Microscopic? YES; Appearance Urine Turbid (Clear); Bilirubin Urine Negative (Negative); Blood Urine 3+ (Negative); Color Urine Yellow (Yellow); Glucose Urine UA Negative (Negative); Ketones Urine Negative (Negative); Leukocyte Esterase Ur 3+ LEU/UL (Negative); Mucus Urine Rare /lpf; Nitrate Urine Negative (Negative); Protein Urine 2+ mg/dL (Negative); RBC Urine >75 /hpf (0-2); Specific Grav Ur 1.014 (1.001-1.035); Squamous Epithelial Cell Urine Few /hpf (Few); Urobilinogen Urine Negative mg/dL (<2.0); WBC Clumps Urine Present /HPF; WBC Urine >75 /hpf
[2022-03-09 02:51] LABS: NT Pro B Type Natriuretic Pept 1910 pg/mL (5-100)
--- NOTE | 2022-03-09 03:07 | PC.NURSE ---
multiple unsuccessful IV attempts. ERP and charge notified
[2022-03-09 03:08] VITALS: BP 179/81; PULSE 74; RESP 18; O2SAT 98
[2022-03-09 03:17] LABS: Glucose Point of Care 272 mg/dl (65-105)
[2022-03-09] MEDS: SODIUM CHLORIDE 0.9% IV 1,000 ML 999 ML IV CONT (03:50)
--- NOTE | 2022-03-09 04:04 | PC.NURSE ---
after several failed iv attempts provider placed External Jugular peripheral line
[2022-03-09 04:53] LABS: SARS-CoV-2 RNA PCR Negative
[2022-03-09] MEDS: SODIUM CHLORIDE 0.9% IV 1,000 ML 65 ML IV CONT (06:19)
--- NOTE | 2022-03-09 07:20 | ADMGEN ---
This patient, Pat Gil, was admitted to [facility] Surg Room 315-02 at 0720. Patient/family oriented to hospital policies and general routines including ID bracelet, bed and alarms, visiting hours, pain management, procedures, bathroom and other care routines, personal items, smoking policy, room service/diet, and visiting hours. Information on how to activate the Rapid Response Team has been discussed. Patient/Family are encouraged to report perceived risks to care and to ask questions if they do not understand what they are told or what they should do.
[2022-03-09 08:26] LABS: Glucose Point of Care 64 mg/dl (65-105)
[2022-03-09 09:49] LABS: Glucose Point of Care 72 mg/dl (65-105)
[2022-03-09 12:00] LABS: Glucose Point of Care 86 mg/dl (65-105)
[2022-03-09 12:09] VITALS: BMI 28.3
[2022-03-09 14:00] VITALS: BP 178/81; PULSE 73; RESP 20; TEMP 36; O2SAT 99
--- NOTE | 2022-03-09 14:50 | PM.IMHP ---
H&P: HPI History of Present Illness Date/Time: 03/09/22 14:50 Chief Complaint: Hypoglycemia and generalized weak Narrative: EDHPI narrative: Patient 81-year-old female who presents the emergency department with chief complaint of hypoglycemia generalized weakness patient is a resident of a local half-way.? They report that the patient has not been eating and drinking and blood sugars were very low the patient refused to take any oral glucose and refused to let the nursing staff draw blood from her.? The patient also was found to have a pleural effusion on chest x-ray. 03/09/2022 interval history: patient remains somnolent and does not respond to verbal instruction, patient remains hypoglycemia and being treated with D5 IV fluid, myself her nurse tried to wake her up patient is not responding, nurse was able to reach her daughter, patient daughter is having colonoscopy today and unable to come to the hospital, chest x-ray showed moderate pleural effusion on right side, unable to do thoracentesis as patient is unable to provide consent and also suspicious for pneumonia patient is being treated with ceftriaxone and azithromycin, her urine is also suspicious for UTI again patient is not able to provide any review of symptoms however patient is being treated ceftriaxone and will follow-up on urine culture, will continue present management with IV fluid and monitor. Review of Systems Review of Systems: ROS unobtainable: Yes unobtainable due to medical condition PMFSH Past Medical History Medical History Anxiety Chronic diastolic heart failure Chronic kidney disease Chronic renal failure, stage 3 (moderate) Dementia GERD (gastroesophageal reflux disease) Glaucoma Hyperlipidemia Hypertension Surgical History Surgical History H/O cataract extraction History of bilateral tubal ligation Family History Family History Son Heart disease Son Traumatic brain injury Mother Heart disease Hypertension Diabetes mellitus Father Hypertension Lung cancer Social History Social History Social History: the patient resides at [facility]. power of insurance attorney is Romina jacobs. The patient had 7 children and 2 of . The patient is and she is retired. code status DNR Smoking status: Never smoker Second hand tobacco smoke exposure: No Alcohol intake: unknown Substance use: never Substance use type: does not use Spiritual care concerns: No Meds Home Medications and Allergies Home Medications Medication Instructions Recorded Confirmed Type benztropine 1 mg tablet 1 mg PO DAILY 11/22/21 03/09/22 History brimonidine 0.1 % eye drops 1 drp EACH EYE DAILY Unspecified 11/22/21 03/09/22 History (Alphagan P) Glaucoma carvedilol 3.125 mg tablet 1 tablet PO BID 11/22/21 03/09/22 History dorzolamide 22.3 mg-timolol 6.8 1 drp EACH EYE DAILY 11/22/21 03/09/22 History mg/mL eye drops famotidine 20 mg tablet 20 mg PO BID 11/22/21 03/09/22 History ondansetron HCl 4 mg tablet 4 mg PO Q6H PRN Nausea And Vomiting 11/22/21 03/09/22 History pravastatin 20 mg tablet 20 mg PO DAILY 11/22/21 03/09/22 History aluminum-mag hydroxide-simethicone 20 ml PO Q6H PRN Heartburn 11/23/21 03/09/22 History 200 mg-200 mg-20 mg/5 mL oral susp (Maalox Advanced) polyethylene glycol 3350 17 gram 17 g PO DAILY PRN Constipation 11/23/21 03/09/22 History oral powder packet (Miralax) bupropion HCl 100 mg tablet,12 hr 100 mg PO Q12HR 30 days #60 tabs 11/25/21 03/09/22 Rx sustained-release (Wellbutrin SR) diphenhydramine-zinc acetate 1 1 applic topical QID PRN Itching 11/25/21 03/09/22 Rx %-0.1 % topical cream (Benadryl 30 days #28.3 grams
[2022-03-09 16:38] LABS: Glucose Point of Care 100 mg/dl (65-105)
[2022-03-09 20:00] VITALS: PULSE 73; RESP 20; O2SAT 99
[2022-03-09 22:00] VITALS: BP 147/72; PULSE 69; RESP 23; TEMP 35.5; O2SAT 99
[2022-03-10] VITALS (11 sets, daily range): BP systolic 143–156; BP diastolic 66–75; PULSE 66–100; RESP 16–20; TEMP 35.6–36.2; O2SAT 96–100
[2022-03-10 06:52] LABS: Hematocrit 27.2 % (37.0-47.0); Hemoglobin 8.4 g/dL (12.0-15.0); Immature Platelet Fraction Pct 3.5 % (0.9-11.2); Mean Corpuscular HGB Conc 30.9 g/dl (32-36); Mean Corpuscular Hemoglobin 30.9 pg (26-34); Platelet Count Result 115 k/mm3 (150-375); Red Blood Count 2.72 M/mm3 (4.2-5.4); Red Cell Distribution Width 19.2 % (11.5-14.5); White Blood Count 3.2 K/mm3 (4.5-10.0)
[2022-03-10 07:09] LABS: Albumin Level 3.1 g/dL (3.5-5.1); Anion Gap 5 mmol/L (8-16); Blood Urea Nitrogen 17 mg/dL (7-17); Calcium 8.5 mg/dL (8.4-10.2); Carbon Dioxide 22 mmol/L (22-30); Chloride 119 mmol/L (98-107); Estimated CRCL calculation 19 ml/min; Estimated Glomerular Filt Rate 26; Glucose 66 mg/dL (65-110); Magnesium 1.8 mg/dL (1.6-2.3); Phosphorus 2.7 mg/dL (2.5-4.5); Sodium 146 mmol/L (137-145)
[2022-03-10] MEDS: DEXTROSE 50% 25 GM/50 ML SYRINGE IV PUSH ×2 (08:34→20:53)
[2022-03-10 08:49] LABS: Glucose Point of Care 81 mg/dl (65-105)
[2022-03-10 08:49] LABS: Glucose Point of Care 55 mg/dl (65-105)
[2022-03-10] MEDS: FUROSEMIDE INJ 40 MG/4 ML VIAL 20 MG IV PUSH (08:55)
[2022-03-10 11:26] LABS: Glucose Point of Care 119 mg/dl (65-105)
[2022-03-10 11:26] LABS: Glucose Point of Care 68 mg/dl (65-105)
--- NOTE | 2022-03-10 11:27 | PM.IMPN ---
Progress Note: A&P Assessment and Plan (1) Pleural effusion: Code(s): J90 - Pleural effusion, not elsewhere classified Status: Acute Assessment and Plan: EDI narrative: Patient 81-year-old female who presents the emergency department with chief complaint of hypoglycemia generalized weakness patient is a resident of a local shelter.? They report that the patient has not been eating and drinking and blood sugars were very low the patient refused to take any oral glucose and refused to let the nursing staff draw blood from her.? The patient also was found to have a pleural effusion on chest x-ray. 03/10/2022 interval history: today patient remains somnolent and does respond to verbal instruction, by just looking at you, upon arrival patient was hypoglycemic and being treated with D5 IV fluid, however patient is getting volume over loaded, will give x1 Lasix 20mg IV, will stop fluids, nurse was able to reach her daughter, on 03/09 patient daughter was having colonoscopy and was unable to come to the hospital, chest x-ray showed moderate pleural effusion on right side, unable to do thoracentesis as patient is unable to provide consent and also suspicious for pneumonia patient is being treated with ceftriaxone and azithromycin, her urine is also suspicious for UTI again patient is not able to provide any review of symptoms however patient is being treated ceftriaxone and will follow-up on urine culture, will continue present management with IV fluid and monitor. (2) Pneumonia: Code(s): J18.9 - Pneumonia, unspecified organism Status: Acute Assessment and Plan: patient is being treated ceftriaxone and azithromycin (3) UTI (urinary tract infection): Code(s): N39.0 - Urinary tract infection, site not specified Status: Acute Assessment and Plan: UA suspicious for UTI with significantly white count being treated with ceftriaxone will follow-up on urine culture. (4) Chronic renal failure, stage 3 (moderate): Code(s): N18.30 - Chronic kidney disease, stage 3 unspecified Status: Acute Assessment and Plan: patient with acute on chronic kidney disease most likely secondary to dehydration as patient p.o. intake is very poor, will monitor. (5) Dementia: Code(s): F03.90 - Unspecified dementia, unspecified severity, without behavioral disturbance, psychotic disturbance, mood disturbance, and anxiety Status: Acute Assessment and Plan: history Ms. Patient has Alzheimer's dementia possibly end stage Subjective Date/time seen: 03/10/22 11:27 03/10/2022 interval history: today patient remains somnolent and does respond to verbal instruction, by just looking at you, upon arrival patient was hypoglycemic and being treated with D5 IV fluid, however patient is getting volume over loaded, will give x1 Lasix 20mg IV, will stop fluids, nurse was able to reach her daughter, on 03/09 patient daughter was having colonoscopy and was unable to come to the hospital, chest x-ray showed moderate pleural effusion on right side, unable to do thoracentesis as patient is unable to provide consent and also suspicious for pneumonia patient is being treated with ceftriaxone and azithromycin, her urine is also suspicious for UTI again patient is not able to provide any review of symptoms however patient is being treated ceftriaxone and will follow-up on urine culture, will continue present management with IV fluid and monitor. Review of Systems Review of Systems: ROS unobtainable: Yes unobtainable due to medical condition Exam Narrative: elderly frail Patient is comfortable, NAD HEENT: eyes are clear and none icteric LUNGS: normal respiratory effort ABD: not distended Lower extremities: no edema SKIN: nonjaundiced Neuro: grossly intact patient is quite somnolent. Objective Data Vital Signs Vital Signs: Vital Signs - 24 hr 03/09/22 14:00 03/09/22 20:00
[2022-03-10] MEDS: GLUCOSE ORAL GEL 15 GM OF GLUCSE IN 37.5 GM TUBE PO (11:30)
[2022-03-10] MEDS: ALBUTEROL SULFATE NEB 2.5 MG/3 ML INH INHALATION ×3 (11:48→20:45)
[2022-03-10] MEDS: IPRATROPIUM BR 0.02% INH SOLN 0.5 MG/2.5 ML VIAL INHALATION ×3 (11:49→20:45)
[2022-03-10 13:10] LABS: Glucose Point of Care 72 mg/dl (65-105)
[2022-03-10 13:31] LABS: Albumin Level 3.4 g/dL (3.5-5.1); Glucose 84 mg/dL (65-110); Lactate Dehydrogenase 250 U/L (120-246)
[2022-03-10 13:37] LABS: Prothrombin Time 13.2 Seconds (11.1-14.7)
[2022-03-10 16:21] LABS: Glucose Point of Care 71 mg/dl (65-105)
[2022-03-10 16:53] LABS: Glucose Point of Care 73 mg/dl (65-105)
[2022-03-10 21:00] LABS: Glucose Point of Care 76 mg/dl (65-105)
[2022-03-11] VITALS (12 sets, daily range): BP systolic 118–162; BP diastolic 50–89; PULSE 60–80; RESP 15–20; TEMP 36.2–37; O2SAT 95–100
[2022-03-11] MEDS: ALBUTEROL SULFATE NEB 2.5 MG/3 ML INH INHALATION ×5 (00:07→20:39)
[2022-03-11] MEDS: IPRATROPIUM BR 0.02% INH SOLN 0.5 MG/2.5 ML VIAL INHALATION ×5 (00:07→20:39)
[2022-03-11 03:29] LABS: Glucose Point of Care 74 mg/dl (65-105)
[2022-03-11 05:10] LABS: Glucose Point of Care 63 mg/dl (65-105)
[2022-03-11 05:13] LABS: Hematocrit 23.6 % (37.0-47.0); Hemoglobin 7.3 g/dL (12.0-15.0); Immature Platelet Fraction Pct 2.7 % (0.9-11.2); Mean Corpuscular HGB Conc 30.9 g/dl (32-36); Mean Corpuscular Hemoglobin 30.4 pg (26-34); Mean Corpuscular Volume 98.3 fl (80-100); Mean Platelet Volume 11.3 fl (7.4-10.4); Platelet Count Result 110 k/mm3 (150-375); Red Cell Distribution Width 19.2 % (11.5-14.5); White Blood Count 2.6 K/mm3 (4.5-10.0)
[2022-03-11] MEDS: DEXTROSE 50% 25 GM/50 ML SYRINGE IV PUSH ×2 (05:18→09:28)
[2022-03-11 05:21] LABS: Albumin Level 2.9 g/dL (3.5-5.1); Anion Gap 12 mmol/L (8-16); Blood Urea Nitrogen 15 mg/dL (7-17); Calcium 8.4 mg/dL (8.4-10.2); Carbon Dioxide 23 mmol/L (22-30); Chloride 114 mmol/L (98-107); Estimated CRCL calculation 19 ml/min; Estimated Glomerular Filt Rate 25; Glucose 77 mg/dL (65-110); Magnesium 1.5 mg/dL (1.6-2.3); Phosphorus 2.6 mg/dL (2.5-4.5); Potassium 3.6 mmol/L (3.4-5.0); Sodium 149 mmol/L (137-145)
[2022-03-11 08:00] LABS: Glucose Point of Care 69 mg/dl (65-105)
[2022-03-11] MEDS: MAGNESIUM SULF 2 GM/WATER 50ML 2 GM/50 ML BAG IVPB (09:29)
[2022-03-11] MEDS: DEXTROSE 5%/0.45% SOD CHL 1,000 ML 75 ML IV CONT (10:34)
[2022-03-11 11:40] LABS: Glucose Point of Care 95 mg/dl (65-105)
--- NOTE | 2022-03-11 13:09 | PM.IMPN ---
Progress Note: A&P Assessment and Plan (1) Pleural effusion: Code(s): J90 - Pleural effusion, not elsewhere classified Status: Acute Assessment and Plan: EDHPI narrative: Patient 81-year-old female who presents the emergency department with chief complaint of hypoglycemia generalized weakness patient is a resident of a local group home.? They report that the patient has not been eating and drinking and blood sugars were very low the patient refused to take any oral glucose and refused to let the nursing staff draw blood from her.? The patient also was found to have a pleural effusion on chest x-ray. 03/11/2022 interval history: today patient remains somewhat awake and does respond to verbal instruction, by just looking at you, upon arrival patient was hypoglycemic and being treated with D5 IV fluid, however patient is getting volume over loaded, will give x1 Lasix 20mg IV, will stop fluids, nurse was able to reach her daughter, on 03/09 patient daughter was having colonoscopy and was unable to come to the hospital, chest x-ray showed moderate pleural effusion on right side, unable to do thoracentesis as patient is unable to provide consent and also suspicious for pneumonia patient is being treated with ceftriaxone and azithromycin, her urine is also suspicious for UTI again patient is not able to provide any review of symptoms patient daughter was here on 03/10 and provided concent for thoracentesis, which is scheduled for tomorrow, however patient is being treated ceftriaxone and will follow-up on urine culture, will continue present management with IV fluid and monitor. (2) Pneumonia: Code(s): J18.9 - Pneumonia, unspecified organism Status: Acute Assessment and Plan: patient is being treated ceftriaxone and azithromycin (3) UTI (urinary tract infection): Code(s): N39.0 - Urinary tract infection, site not specified Status: Acute Assessment and Plan: UA suspicious for UTI with significantly white count being treated with ceftriaxone will follow-up on urine culture. (4) Chronic renal failure, stage 3 (moderate): Code(s): N18.30 - Chronic kidney disease, stage 3 unspecified Status: Acute Assessment and Plan: patient with acute on chronic kidney disease most likely secondary to dehydration as patient p.o. intake is very poor, will monitor. (5) Dementia: Code(s): F03.90 - Unspecified dementia, unspecified severity, without behavioral disturbance, psychotic disturbance, mood disturbance, and anxiety Status: Acute Assessment and Plan: history Ms. Patient has Alzheimer's dementia possibly end stage Subjective Date/time seen: 03/11/22 13:09 03/11/2022 interval history: today patient remains somewhat awake and does respond to verbal instruction, by just looking at you, upon arrival patient was hypoglycemic and being treated with D5 IV fluid, however patient is getting volume over loaded, will give x1 Lasix 20mg IV, will stop fluids, nurse was able to reach her daughter, on 03/09 patient daughter was having colonoscopy and was unable to come to the hospital, chest x-ray showed moderate pleural effusion on right side, unable to do thoracentesis as patient is unable to provide consent and also suspicious for pneumonia patient is being treated with ceftriaxone and azithromycin, her urine is also suspicious for UTI again patient is not able to provide any review of symptoms patient daughter was here on 03/10 and provided concent for thoracentesis, which is scheduled for tomorrow, however patient is being treated ceftriaxone and will follow-up on urine culture, will continue present management with IV fluid and monitor. Review of Systems Review of Systems: ROS unobtainable: Yes unobtainable due to medical condition Exam Narrative: elderly frail Patient is comfortable, NAD HEENT: eyes are clear and none icteric LUNGS: normal respiratory effor
[2022-03-11 16:37] LABS: Glucose Point of Care 103 mg/dl (65-105)
[2022-03-11 20:27] LABS: Glucose Point of Care 105 mg/dl (65-105)
[2022-03-11] MEDS: buPROPion HCL SR (12HR) 100 MG TABCR PO (23:09)
[2022-03-11] MEDS: carvediloL 3.125 MG TABLET PO (23:09)
[2022-03-11] MEDS: HALOPERIDOL 0.5 MG TABLET PO (23:11)
[2022-03-11] MEDS: HALOPERIDOL 1 MG TABLET 2 MG PO (23:11)
[2022-03-11] MEDS: FAMOTIDINE 20 MG TABLET PO (23:11)
[2022-03-11 23:38] LABS: Glucose Point of Care 103 mg/dl (65-105)
[2022-03-12] VITALS (13 sets, daily range): BP systolic 168–189; BP diastolic 60–73; PULSE 64–82; RESP 16–20; TEMP 35.9–36.4; O2SAT 96–100
[2022-03-12] MEDS: IPRATROPIUM BR 0.02% INH SOLN 0.5 MG/2.5 ML VIAL INHALATION (01:19)
[2022-03-12] MEDS: ALBUTEROL SULFATE NEB 2.5 MG/3 ML INH INHALATION (01:19)
[2022-03-12 03:52] LABS: Glucose Point of Care 96 mg/dl (65-105)
[2022-03-12 07:43] LABS: Hematocrit 27.6 % (37.0-47.0); Hemoglobin 8.8 g/dL (12.0-15.0); Immature Platelet Fraction Pct 2.8 % (0.9-11.2); Mean Corpuscular HGB Conc 31.9 g/dl (32-36); Mean Corpuscular Hemoglobin 30.4 pg (26-34); Mean Corpuscular Volume 95.5 fl (80-100); Mean Platelet Volume 11.1 fl (7.4-10.4); Platelet Count Result 115 k/mm3 (150-375); Red Blood Count 2.89 M/mm3 (4.2-5.4); White Blood Count 3.6 K/mm3 (4.5-10.0)
[2022-03-12 07:56] LABS: Albumin Level 3.4 g/dL (3.5-5.1); Anion Gap 8 mmol/L (8-16); Blood Urea Nitrogen 14 mg/dL (7-17); Calcium 8.7 mg/dL (8.4-10.2); Carbon Dioxide 18 mmol/L (22-30); Chloride 117 mmol/L (98-107); Estimated CRCL calculation 19 ml/min; Estimated Glomerular Filt Rate 26; Glucose 117 mg/dL (65-110); Magnesium 2.1 mg/dL (1.6-2.3); Phosphorus 2.7 mg/dL (2.5-4.5); Potassium 3.9 mmol/L (3.4-5.0); Sodium 143 mmol/L (137-145)
[2022-03-12 08:00] LABS: Glucose Point of Care 107 mg/dl (65-105)
[2022-03-12 08:00] LABS: Glucose Point of Care 102 mg/dl (65-105)
[2022-03-12] MEDS: DORZOLAMIDE/TIMOLOL OPHTH SOL 10 ML BOTTLE 1 DROP EACH EYE (09:48)
[2022-03-12] MEDS: BRIMONIDINE TARTRATE 0.1% 5 ML OPHTH DROPS 1 DROP EACH EYE (10:36)
[2022-03-12 11:29] LABS: Glucose Point of Care 114 mg/dl (65-105)
[2022-03-12 12:43] LABS: pH Pleural Fluid > 7.500 (7.210-7.500)
[2022-03-12] MEDS: amLODIPine BESYLATE 5 MG TABLET 10 MG PO (13:11)
[2022-03-12] MEDS: PRAVASTATIN SODIUM 20 MG TABLET PO (13:11)
[2022-03-12] MEDS: carvediloL 3.125 MG TABLET PO ×2 (13:11→20:38)
[2022-03-12] MEDS: BENZTROPINE MESYLATE 1 MG TABLET PO (13:11)
[2022-03-12] MEDS: buPROPion HCL SR (12HR) 100 MG TABCR PO ×2 (13:15→20:44)
[2022-03-12] MEDS: FAMOTIDINE 20 MG TABLET PO ×2 (14:05→20:45)
--- NOTE | 2022-03-12 14:48 | PM.IMPN ---
Progress Note: A&P Assessment and Plan (1) Pleural effusion: Code(s): J90 - Pleural effusion, not elsewhere classified Status: Acute Assessment and Plan: EDHPI narrative: Patient 81-year-old female who presents the emergency department with chief complaint of hypoglycemia generalized weakness patient is a resident of a local intermediate.? They report that the patient has not been eating and drinking and blood sugars were very low the patient refused to take any oral glucose and refused to let the nursing staff draw blood from her.? The patient also was found to have a pleural effusion on chest x-ray. 03/12/2022 interval history: today patient remains somewhat awake and does respond to verbal instruction, by just looking at you, upon arrival patient was hypoglycemic and being treated with D5 IV fluid, however patient is getting volume over loaded, will give x1 Lasix 20mg IV, will stop fluids, nurse was able to reach her daughter, on 03/09 patient daughter was having colonoscopy and was unable to come to the hospital, chest x-ray showed moderate pleural effusion on right side, unable to do thoracentesis as patient is unable to provide consent and also suspicious for pneumonia patient is being treated with ceftriaxone and doxycycline, her urine is also suspicious for UTI again patient is not able to provide any review of symptoms patient daughter was here on 03/10 and provided concent for thoracentesis, and patient had it today and 1000cc yellow fluid collected , however patient is being treated ceftriaxone and will follow-up on urine culture, will continue present management with IV fluid and monitor. (2) Pneumonia: Code(s): J18.9 - Pneumonia, unspecified organism Status: Acute Assessment and Plan: patient is being treated ceftriaxone and azithromycin (3) UTI (urinary tract infection): Code(s): N39.0 - Urinary tract infection, site not specified Status: Acute Assessment and Plan: UA suspicious for UTI with significantly white count being treated with ceftriaxone will follow-up on urine culture. (4) Chronic renal failure, stage 3 (moderate): Code(s): N18.30 - Chronic kidney disease, stage 3 unspecified Status: Acute Assessment and Plan: patient with acute on chronic kidney disease most likely secondary to dehydration as patient p.o. intake is very poor, will monitor. (5) Dementia: Code(s): F03.90 - Unspecified dementia, unspecified severity, without behavioral disturbance, psychotic disturbance, mood disturbance, and anxiety Status: Acute Assessment and Plan: history Ms. Patient has Alzheimer's dementia possibly end stage Subjective Date/time seen: 03/12/22 14:48 03/12/2022 interval history: today patient remains somewhat awake and does respond to verbal instruction, by just looking at you, upon arrival patient was hypoglycemic and being treated with D5 IV fluid, however patient is getting volume over loaded, will give x1 Lasix 20mg IV, will stop fluids, nurse was able to reach her daughter, on 03/09 patient daughter was having colonoscopy and was unable to come to the hospital, chest x-ray showed moderate pleural effusion on right side, unable to do thoracentesis as patient is unable to provide consent and also suspicious for pneumonia patient is being treated with ceftriaxone and doxycycline, her urine is also suspicious for UTI again patient is not able to provide any review of symptoms patient daughter was here on 03/10 and provided concent for thoracentesis, and patient had it today and 1000cc yellow fluid collected , however patient is being treated ceftriaxone and will follow-up on urine culture, will continue present management with IV fluid and monitor. Review of Systems Review of Systems: ROS unobtainable: Yes unobtainable due to medical condition Exam Narrative: elderly frail Patient is comfortable, NAD HEENT: eyes are vickie
[2022-03-12 15:51] LABS: Pleural fluid source Pleural fluid
[2022-03-12 15:54] LABS: Appearance Pleural Fluid Cloudy (Clear); Color Pleural Fluid Yellow (Colorless)
[2022-03-12 15:55] LABS: Lymphocytes Pleural Fluid 24 %; Macrophages Pleural Fluid 24 %; Monocytes Pleural Fluid 51 %
[2022-03-12 15:57] LABS: Other Cells Pleural Fluid 1 %
[2022-03-12 16:50] LABS: Glucose Point of Care 143 mg/dl (65-105)
[2022-03-12] MEDS: DOXYCYCLINE 100 MG/NS 100 ML 100 MG/100 ML BAG IVPB (18:20)
[2022-03-12] MEDS: HALOPERIDOL 0.5 MG TABLET PO (20:45)
[2022-03-12] MEDS: HALOPERIDOL 1 MG TABLET 2 MG PO (20:45)
[2022-03-12] MEDS: hydrALAZINE HCL 25 MG TABLET PO (20:51)
[2022-03-13] VITALS (22 sets, daily range): BP systolic 122–174; BP diastolic 47–119; PULSE 51–72; RESP 16–20; TEMP 32.2–36.8; O2SAT 96–100
[2022-03-13] MEDS: DEXTROSE 5%/0.45% SOD CHL 1,000 ML 75 ML IV CONT ×2 (00:40→17:22)
[2022-03-13 01:09] LABS: Glucose Point of Care 121 mg/dl (65-105)
[2022-03-13 01:09] LABS: Glucose Point of Care 141 mg/dl (65-105)
[2022-03-13] MEDS: DOXYCYCLINE 100 MG/NS 100 ML 100 MG/100 ML BAG IVPB ×2 (05:50→17:21)
[2022-03-13 06:55] LABS: Hematocrit 30.6 % (37.0-47.0); Hemoglobin 8.9 g/dL (12.0-15.0); Immature Platelet Fraction Pct 2.7 % (0.9-11.2); Mean Corpuscular HGB Conc 29.1 g/dl (32-36); Mean Corpuscular Hemoglobin 30.8 pg (26-34); Mean Corpuscular Volume 105.9 fl (80-100); Mean Platelet Volume 10.4 fl (7.4-10.4); Platelet Count Result 96 k/mm3 (150-375); Red Blood Count 2.89 M/mm3 (4.2-5.4); Red Cell Distribution Width 19.6 % (11.5-14.5); White Blood Count 2.3 K/mm3 (4.5-10.0)
[2022-03-13 07:04] LABS: Albumin Level 3.2 g/dL (3.5-5.1); Anion Gap 12 mmol/L (8-16); Blood Urea Nitrogen 14 mg/dL (7-17); Calcium 8.6 mg/dL (8.4-10.2); Carbon Dioxide 18 mmol/L (22-30); Chloride 115 mmol/L (98-107); Estimated CRCL calculation 20 ml/min; Estimated Glomerular Filt Rate 28; Glucose 112 mg/dL (65-110); Phosphorus 3.3 mg/dL (2.5-4.5); Potassium 3.8 mmol/L (3.4-5.0); Sodium 145 mmol/L (137-145)
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
[2022-03-13] MEDS: ALBUTEROL SULFATE NEB 2.5 MG/3 ML INH INHALATION ×3 (08:07→20:30)
[2022-03-13] MEDS: IPRATROPIUM BR 0.02% INH SOLN 0.5 MG/2.5 ML VIAL INHALATION ×3 (08:07→20:31)
[2022-03-13 08:12] LABS: Glucose Point of Care 102 mg/dl (65-105)
[2022-03-13 09:37] LABS: Glucose Point of Care 89 mg/dl (65-105)
[2022-03-13] MEDS: GLUCAGON FOR INJ 1 MG VIAL IM (09:49)
[2022-03-13 11:09] LABS: Glucose Point of Care 123 mg/dl (65-105)
[2022-03-13 11:33] LABS: Glucose Point of Care 197 mg/dl (65-105)
[2022-03-13] MEDS: amLODIPine BESYLATE 5 MG TABLET 10 MG PO (12:05)
[2022-03-13] MEDS: BRIMONIDINE TARTRATE 0.1% 5 ML OPHTH DROPS 1 DROP EACH EYE (12:06)
[2022-03-13] MEDS: BENZTROPINE MESYLATE 1 MG TABLET PO (12:06)
[2022-03-13] MEDS: FAMOTIDINE 20 MG TABLET PO ×2 (12:07→20:05)
[2022-03-13] MEDS: carvediloL 3.125 MG TABLET PO ×2 (12:07→20:05)
[2022-03-13] MEDS: buPROPion HCL SR (12HR) 100 MG TABCR PO ×2 (12:07→20:05)
[2022-03-13] MEDS: DORZOLAMIDE/TIMOLOL OPHTH SOL 10 ML BOTTLE 1 DROP EACH EYE (12:07)
[2022-03-13] MEDS: PRAVASTATIN SODIUM 20 MG TABLET PO (12:08)
[2022-03-13] MEDS: FERROUS GLUCONATE 324 MG TABLET PO (12:08)
[2022-03-13] MEDS: SODIUM BICARBONATE TAB 325 MG TABLET PO (12:08)
--- NOTE | 2022-03-13 16:44 | PM.IMPN ---
Progress Note: A&P Assessment and Plan (1) Pleural effusion: Code(s): J90 - Pleural effusion, not elsewhere classified Status: Acute Assessment and Plan: EDHPI narrative: Patient 81-year-old female who presents the emergency department with chief complaint of hypoglycemia generalized weakness patient is a resident of a local intermediate.? They report that the patient has not been eating and drinking and blood sugars were very low the patient refused to take any oral glucose and refused to let the nursing staff draw blood from her.? The patient also was found to have a pleural effusion on chest x-ray. 03/13/2022 interval history: today patient remains somewhat awake and does respond to verbal instruction, by just looking at you, upon arrival patient was hypoglycemic and being treated with D5 IV fluid, however patient was getting volume over loaded, gave x1 Lasix 20mg IV, will stop fluids, nurse was able to reach her daughter, on 03/09 patient daughter was having colonoscopy and was unable to come to the hospital, chest x-ray showed moderate pleural effusion on right side, unable to do thoracentesis as patient is unable to provide consent and also suspicious for pneumonia patient is being treated with ceftriaxone and doxycycline, her urine is also suspicious for UTI, urine is growing Proteus mirabilis sensitive to ceftriaxone will continue, again patient is not able to provide any review of symptoms patient daughter was here on 03/10 and provided concent for thoracentesis, and patient had it on 03/12 and 1000cc yellow fluid collected, initial labs most likely transudate, today patient pulled out her IV see was quite hypoglycemic and somnolent patient was given glucagon and her symptoms improved now patient has IV and being hydrated with D5 normal saline. today I spoke 1 of the patient's daughter and recommended to consider hospice with the patient see will discussed with sibling and further recommendation to follow. (2) Pneumonia: Code(s): J18.9 - Pneumonia, unspecified organism Status: Acute Assessment and Plan: patient is being treated ceftriaxone and azithromycin (3) UTI (urinary tract infection): Code(s): N39.0 - Urinary tract infection, site not specified Status: Acute Assessment and Plan: UA suspicious for UTI with significantly white count being treated with ceftriaxone will follow-up on urine culture. (4) Chronic renal failure, stage 3 (moderate): Code(s): N18.30 - Chronic kidney disease, stage 3 unspecified Status: Acute Assessment and Plan: patient with acute on chronic kidney disease most likely secondary to dehydration as patient p.o. intake is very poor, will monitor. (5) Dementia: Code(s): F03.90 - Unspecified dementia, unspecified severity, without behavioral disturbance, psychotic disturbance, mood disturbance, and anxiety Status: Acute Assessment and Plan: history Ms. Patient has Alzheimer's dementia possibly end stage Subjective Date/time seen: 03/13/22 16:44 EDHPI narrative: Patient 81-year-old female who presents the emergency department with chief complaint of hypoglycemia generalized weakness patient is a resident of a local intermediate.? They report that the patient has not been eating and drinking and blood sugars were very low the patient refused to take any oral glucose and refused to let the nursing staff draw blood from her.? The patient also was found to have a pleural effusion on chest x-ray. 03/13/2022 interval history: today patient remains somewhat awake and does respond to verbal instruction, by just looking at you, upon arrival patient was hypoglycemic and being treated with D5 IV fluid, however patient was getting volume over loaded, gave x1 Lasix 20mg IV, will stop fluids, nurse was able to reach her daughter, on 03/09 patient daughter was having colonoscopy and was unable to come to the hospital, elizabeth
[2022-03-13 16:47] LABS: Glucose Point of Care 120 mg/dl (65-105)
[2022-03-13] MEDS: HALOPERIDOL 1 MG TABLET 2 MG PO (20:05)
[2022-03-13] MEDS: HALOPERIDOL 0.5 MG TABLET PO (20:06)
[2022-03-13 21:22] LABS: Glucose Point of Care 152 mg/dl (65-105)
[2022-03-14] VITALS (22 sets, daily range): BP systolic 105–199; BP diastolic 52–94; PULSE 70–109; RESP 18–34; TEMP 35.5–36.8; O2SAT 86–100
[2022-03-14] MEDS: ALBUTEROL SULFATE NEB 2.5 MG/3 ML INH INHALATION ×4 (02:43→19:43)
[2022-03-14] MEDS: IPRATROPIUM BR 0.02% INH SOLN 0.5 MG/2.5 ML VIAL INHALATION ×4 (02:44→19:43)
[2022-03-14] MEDS: FUROSEMIDE INJ 40 MG/4 ML VIAL IV PUSH ×2 (02:53→19:54)
[2022-03-14] MEDS: hydrALAZINE HCL 25 MG TABLET PO (03:00)
[2022-03-14 03:05] LABS: Glucose Point of Care 113 mg/dl (65-105)
[2022-03-14] MEDS: DOXYCYCLINE 100 MG/NS 100 ML 100 MG/100 ML BAG IVPB ×2 (04:56→18:18)
[2022-03-14 06:45] LABS: Hematocrit 26.9 % (37.0-47.0); Hemoglobin 8.3 g/dL (12.0-15.0); Immature Platelet Fraction Pct 3.7 % (0.9-11.2); Mean Corpuscular HGB Conc 30.9 g/dl (32-36); Mean Corpuscular Hemoglobin 30.2 pg (26-34); Mean Corpuscular Volume 97.8 fl (80-100); Mean Platelet Volume 11.1 fl (7.4-10.4); Platelet Count Result 103 k/mm3 (150-375); Red Blood Count 2.75 M/mm3 (4.2-5.4); Red Cell Distribution Width 18.7 % (11.5-14.5); White Blood Count 4.8 K/mm3 (4.5-10.0)
[2022-03-14 06:55] LABS: Anion Gap 9 mmol/L (8-16); Blood Urea Nitrogen 14 mg/dL (7-17); Calcium 8.4 mg/dL (8.4-10.2); Carbon Dioxide 22 mmol/L (22-30); Chloride 112 mmol/L (98-107); Estimated CRCL calculation 19 ml/min; Estimated Glomerular Filt Rate 26; Glucose 96 mg/dL (65-110); Magnesium 1.7 mg/dL (1.6-2.3); Phosphorus 3.1 mg/dL (2.5-4.5); Potassium 3.8 mmol/L (3.4-5.0); Sodium 143 mmol/L (137-145)
[2022-03-14 06:59] LABS: NT Pro B Type Natriuretic Pept 4250 pg/mL (5-100)
[2022-03-14 07:01] LABS: Glucose Point of Care 98 mg/dl (65-105)
[2022-03-14 08:20] LABS: Glucose Point of Care 87 mg/dl (65-105)
[2022-03-14] MEDS: buPROPion HCL SR (12HR) 100 MG TABCR PO (09:02)
[2022-03-14] MEDS: SODIUM BICARBONATE TAB 325 MG TABLET PO ×2 (09:02→18:19)
[2022-03-14] MEDS: carvediloL 3.125 MG TABLET PO (09:02)
[2022-03-14] MEDS: PRAVASTATIN SODIUM 20 MG TABLET PO (09:02)
[2022-03-14] MEDS: FAMOTIDINE 20 MG TABLET PO (09:02)
[2022-03-14] MEDS: BENZTROPINE MESYLATE 1 MG TABLET PO (09:04)
[2022-03-14] MEDS: amLODIPine BESYLATE 5 MG TABLET 10 MG PO (09:04)
[2022-03-14 12:29] LABS: Glucose Point of Care 110 mg/dl (65-105)
--- NOTE | 2022-03-14 13:20 | PM.IMPN ---
Progress Note: A&P Assessment and Plan (1) Pleural effusion: Code(s): J90 - Pleural effusion, not elsewhere classified Status: Acute Assessment and Plan: EDHPI narrative: Patient 81-year-old female who presents the emergency department with chief complaint of hypoglycemia generalized weakness patient is a resident of a local alf.? They report that the patient has not been eating and drinking and blood sugars were very low the patient refused to take any oral glucose and refused to let the nursing staff draw blood from her.? The patient also was found to have a pleural effusion on chest x-ray. 03/14/2022 interval history: today patient remains somewhat awake and does respond to verbal instruction, by just looking at you, upon arrival patient was hypoglycemic and being treated with D5 IV fluid, however patient was getting volume over loaded, gave x1 Lasix 20mg IV, will stop fluids, nurse was able to reach her daughter, on 03/09 patient daughter was having colonoscopy and was unable to come to the hospital, chest x-ray showed moderate pleural effusion on right side, unable to do thoracentesis as patient is unable to provide consent and also suspicious for pneumonia patient is being treated with ceftriaxone and doxycycline, her urine is also suspicious for UTI, urine is growing Proteus mirabilis sensitive to ceftriaxone will continue, again patient is not able to provide any review of symptoms patient daughter was here on 03/10 and provided concent for thoracentesis, and patient had it on 03/12 and 1000cc yellow fluid collected, initial labs most likely transudate, on 03/13 patient pulled out her IV she was quite hypoglycemic and somnolent patient was given glucagon and her symptoms improved now patient has IV and being hydrated with D5 normal saline. today patient is more calmer and her grandson is present in the room, today again I spoke with 1 of the patient's daughter over the phone and recommended to consider hospice with the patient family will discussed with sibling and further recommendation to follow. (2) Pneumonia: Code(s): J18.9 - Pneumonia, unspecified organism Status: Acute Assessment and Plan: patient is being treated ceftriaxone and azithromycin (3) UTI (urinary tract infection): Code(s): N39.0 - Urinary tract infection, site not specified Status: Acute Assessment and Plan: UA suspicious for UTI with significantly white count being treated with ceftriaxone will follow-up on urine culture. (4) Chronic renal failure, stage 3 (moderate): Code(s): N18.30 - Chronic kidney disease, stage 3 unspecified Status: Acute Assessment and Plan: patient with acute on chronic kidney disease most likely secondary to dehydration as patient p.o. intake is very poor, will monitor. (5) Dementia: Code(s): F03.90 - Unspecified dementia, unspecified severity, without behavioral disturbance, psychotic disturbance, mood disturbance, and anxiety Status: Acute Assessment and Plan: history Ms. Patient has Alzheimer's dementia possibly end stage Subjective Date/time seen: 03/14/22 13:20 EDHPI narrative: Patient 81-year-old female who presents the emergency department with chief complaint of hypoglycemia generalized weakness patient is a resident of a local alf.? They report that the patient has not been eating and drinking and blood sugars were very low the patient refused to take any oral glucose and refused to let the nursing staff draw blood from her.? The patient also was found to have a pleural effusion on chest x-ray. 03/14/2022 interval history: today patient remains somewhat awake and does respond to verbal instruction, by just looking at you, upon arrival patient was hypoglycemic and being treated with D5 IV fluid, however patient was getting volume over loaded, gave x1 Lasix 20mg IV, will stop fluids, nurse was able to reach her daug
[2022-03-14 16:58] LABS: Glucose Point of Care 118 mg/dl (65-105)
--- NOTE | 2022-03-14 21:01 | PM.EVENT ---
Event Note Event Note Event Note: A rapid response has been called on the patient if she continue to desat she was desatting into the lower 80s. The patient was using accessory muscles to breathe. Patient was not able to talk in full sentences. She was struggling to breathe. Chest x-ray from earlier today showed worsened diffuse lung disease consistent with pulmonary edema and basilar atelectasis versus pneumonia. Improved small pleural effusions. Rales were heard bilaterally. Lasix was ordered and a neb treatment was ordered and patient did not improve. Perhaps a BiPAP machine may help her with the pulmonary edema. I spoke with the daughter who is the durable power assistant attorney general for healthcare. The patient is a DNR and does not want to be intubated but will allow a BiPAP machine.
[2022-03-14 21:07] LABS: Alveolar/Arterial O2 Gradient 391.8 mmHg; Base Excess ABG -2.7 mEq/l (+/-2.0); Carboxyhemoglobin 0.2 % THb (0-2.0); Fractional Inspired Oxygen 75 %; HCO3 ABG 23.5 mEq/l (22.0-26.0); Methemoglobin ABG 0.4 %THb (0-1.5); Oxygen Content ABG 13.8 %vol (16.0-22.0); Oxygen Saturation ABG 96.5 % (95.0-100.0); Oxyhemoglobin 95.1 % THb (90.0-100.0); PCO2 ABG 46.8 mmHg (35.0-45.0); PO2 ABG 93.2 mmHg (80.0-100.0); PO2 FiO2 Ratio Arterial Blood 1.24 %; Reduced Hemoglobin 4.3 %THb (0-5.0); Total Hemoglobin 10.2 g/dL (12.0-18.0); pH ABG 7.318 (7.350-7.450)
[2022-03-14 21:09] LABS: Device NON-INVASIVE VENT; Modified Allen's Test Pass; Non-Invasive Inspiratory Pressure 14 CMH2O; Non-Invasive Vent Rate 12 /MIN; Site Drawn RIGHT RADIAL
[2022-03-14 21:10] LABS: Non-Invasive Expiratory Pressure 7 CMH2O
--- NOTE | 2022-03-14 21:19 | PC.NURSE ---
This patient, Pat Gil, was received from [[phone] ] on 03/14/22 at [id number]. Patient/family oriented to unit policies and routines
[2022-03-14 21:34] LABS: Glucose Point of Care 187 mg/dl (65-105)
[2022-03-14 23:05] LABS: Glucose Point of Care 151 mg/dl (65-105)
[2022-03-14] MEDS: OLANZapine 10 MG INJ VIAL 5 MG IM (23:17)
[2022-03-15] VITALS (29 sets, daily range): BP systolic 97–168; BP diastolic 37–82; PULSE 53–109; RESP 17–32; TEMP 36.1–36.6; O2SAT 86–100
[2022-03-15] MEDS: ALBUTEROL SULFATE NEB 2.5 MG/3 ML INH INHALATION ×4 (02:34→20:45)
[2022-03-15] MEDS: IPRATROPIUM BR 0.02% INH SOLN 0.5 MG/2.5 ML VIAL INHALATION ×4 (02:34→20:43)
[2022-03-15 05:15] LABS: Hematocrit 23.6 % (37.0-47.0); Hemoglobin 7.6 g/dL (12.0-15.0); Immature Platelet Fraction Pct 4.2 % (0.9-11.2); Mean Corpuscular HGB Conc 32.2 g/dl (32-36); Mean Corpuscular Volume 96.3 fl (80-100); Mean Platelet Volume 11.2 fl (7.4-10.4); Platelet Count Result 105 k/mm3 (150-375); Red Blood Count 2.45 M/mm3 (4.2-5.4); Red Cell Distribution Width 18.5 % (11.5-14.5); White Blood Count 4.8 K/mm3 (4.5-10.0)
[2022-03-15] MEDS: DOXYCYCLINE 100 MG/NS 100 ML 100 MG/100 ML BAG IVPB ×2 (05:22→17:14)
[2022-03-15 05:30] LABS: Glucose Point of Care 195 mg/dl (65-105)
[2022-03-15 05:33] LABS: Albumin Level 2.9 g/dL (3.5-5.1); Anion Gap 7 mmol/L (8-16); Blood Urea Nitrogen 16 mg/dL (7-17); Calcium 8.1 mg/dL (8.4-10.2); Carbon Dioxide 23 mmol/L (22-30); Chloride 110 mmol/L (98-107); Estimated CRCL calculation 19 ml/min; Estimated Glomerular Filt Rate 25; Glucose 101 mg/dL (65-110); Magnesium 1.5 mg/dL (1.6-2.3); Phosphorus 3.5 mg/dL (2.5-4.5); Potassium 3.9 mmol/L (3.4-5.0); Sodium 140 mmol/L (137-145)
[2022-03-15] MEDS: LORazepam INJ (*CRX) 2 MG/ML VIAL 1 MG IM (06:01)
[2022-03-15] MEDS: HALOPERIDOL LACTATE 5 MG/ML VIAL IM (06:02)
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
[2022-03-15 08:07] LABS: Glucose Point of Care 130 mg/dl (65-105)
[2022-03-15] MEDS: DORZOLAMIDE/TIMOLOL OPHTH SOL 10 ML BOTTLE 1 DROP EACH EYE (09:31)
[2022-03-15] MEDS: BRIMONIDINE TARTRATE 0.1% 5 ML OPHTH DROPS 1 DROP EACH EYE (09:31)
--- NOTE | 2022-03-15 10:04 | PC.NURSE ---
Notified provider, Dr. Oleary, that patient is lethargic and unable to take any oral morning medications. He stated to notify him if SBP raises above 160
[2022-03-15] MEDS: MAGNESIUM SULF 2 GM/WATER 50ML 2 GM/50 ML BAG IVPB (10:46)
[2022-03-15 11:37] LABS: Alveolar/Arterial O2 Gradient 159.3 mmHg; Base Excess ABG -1.4 mEq/l (+/-2.0); Fractional Inspired Oxygen 50 %; HCO3 ABG 23.3 mEq/l (22.0-26.0); Oxygen Content ABG 10.8 %vol (16.0-22.0); Oxyhemoglobin 97.7 % THb (90.0-100.0); PCO2 ABG 38.8 mmHg (35.0-45.0); PO2 ABG 153.6 mmHg (80.0-100.0); PO2 FiO2 Ratio Arterial Blood 3.07 %; pH ABG 7.397 (7.350-7.450)
[2022-03-15 11:40] LABS: Device NON-INVASIVE VENT; Modified Allen's Test Unable to perform; Site Drawn RIGHT RADIAL; Total Hemoglobin 7.6 g/dL (12.0-18.0)
[2022-03-15 11:41] LABS: Non-Invasive Expiratory Pressure 7 CMH2O; Non-Invasive Inspiratory Pressure 14 CMH2O; Non-Invasive Vent Rate 12 /MIN
[2022-03-15 12:01] LABS: Glucose Point of Care 98 mg/dl (65-105)
--- NOTE | 2022-03-15 16:20 | PM.IMPN ---
Progress Note: A&P Assessment and Plan (1) Pleural effusion: Code(s): J90 - Pleural effusion, not elsewhere classified Status: Acute Assessment and Plan: EDHPI narrative: Patient 81-year-old female who presents the emergency department with chief complaint of hypoglycemia generalized weakness patient is a resident of a local halfway.? They report that the patient has not been eating and drinking and blood sugars were very low the patient refused to take any oral glucose and refused to let the nursing staff draw blood from her.? The patient also was found to have a pleural effusion on chest x-ray. 03/15/2022 interval history: today patient remains somewhat awake and does respond to verbal instruction, by just looking at you, upon arrival patient was hypoglycemic and being treated with D5 IV fluid, however patient was getting volume over loaded, gave x1 Lasix 20mg IV, will stop fluids, nurse was able to reach her daughter, on 03/09 patient daughter was having colonoscopy and was unable to come to the hospital, chest x-ray showed moderate pleural effusion on right side, unable to do thoracentesis as patient is unable to provide consent and also suspicious for pneumonia patient is being treated with ceftriaxone and doxycycline, her urine is also suspicious for UTI, urine is growing Proteus mirabilis sensitive to ceftriaxone will continue, again patient is not able to provide any review of symptoms patient daughter was here on 03/10 and provided concent for thoracentesis, and patient had it on 03/12 and 1000cc yellow fluid collected, initial labs most likely transudate, on 03/13 patient pulled out her IV she was quite hypoglycemic and somnolent patient was given glucagon and her symptoms improved now patient has IV and being hydrated with D5 normal saline. 03/14 patient was more calmer and her grandson was present in the room, [facility] again I spoke with 1 of the patient's daughter over the phone and recommended to consider hospice with the patient family will discussed with sibling and further recommendation to follow. however during the night patient had episode of hypoxia was seen by marble polisher hand patient was placed on BiPAP and transferred to IMU, patient had a chest x-ray does show worsening bilateral lower lung atelectasis/consolidation with otherwise stable reticular opacities likely representing interstitial edema, patient is being treated with ceftriaxone and doxycycline for further recommendation will consult power plant operators supervisor and further recommendation to follow. (2) Pneumonia: Code(s): J18.9 - Pneumonia, unspecified organism Status: Acute Assessment and Plan: patient is being treated ceftriaxone and azithromycin (3) UTI (urinary tract infection): Code(s): N39.0 - Urinary tract infection, site not specified Status: Acute Assessment and Plan: UA suspicious for UTI with significantly white count being treated with ceftriaxone will follow-up on urine culture. (4) Chronic renal failure, stage 3 (moderate): Code(s): N18.30 - Chronic kidney disease, stage 3 unspecified Status: Acute Assessment and Plan: patient with acute on chronic kidney disease most likely secondary to dehydration as patient p.o. intake is very poor, will monitor. (5) Dementia: Code(s): F03.90 - Unspecified dementia, unspecified severity, without behavioral disturbance, psychotic disturbance, mood disturbance, and anxiety Status: Acute Assessment and Plan: history Ms. Patient has Alzheimer's dementia possibly end stage Subjective Date/time seen: 03/15/22 16:20 03/15/2022 interval history: today patient remains somewhat awake and does respond to verbal instruction, by just looking at you, upon arrival patient was hypoglycemic and being treated with D5 IV fluid, however patient was getting volume over loaded, gave x1 Lasix 20mg IV, will stop fluids, nurse was able to reach her daught
[2022-03-15 16:41] LABS: Glucose Point of Care 119 mg/dl (65-105)
[2022-03-15 17:10] LABS: LDH Pleural Fluid 68 U/L; Total Protein Pleural Fluid <3.0 g/dL
--- NOTE | 2022-03-15 21:08 | ECG_ITS ---
Measurements Intervals [place] Rate: 55 P: 56 PA: 213 QRS: 5 QRSD: 153 T: 29 QT: 534 QTc: 513 Interpretive Statements SINUS BRADYCARDIA WITH FIRST DEGREE AV BLOCK RIGHT BUNDLE BRANCH BLOCK MINIMAL Q WAVES- HIGH LATERAL LEADS ABNORMAL ECG COMPARED TO ECG 03/09/2022 03:18:38 SINUS BRADYCARDIA NOW PRESENT Electronically Signed On 03-16-2022 6:59:36 CDT by Jose Guadalupe Camilo D.O.
[2022-03-15 21:46] LABS: Glucose Point of Care 117 mg/dl (65-105)
[2022-03-16] VITALS (27 sets, daily range): BP systolic 119–188; BP diastolic 47–72; PULSE 48–84; RESP 2–26; TEMP 35.7–36.5; O2SAT 94–100; BMI 28.3
[2022-03-16 00:43] LABS: Glucose Point of Care 104 mg/dl (65-105)
--- NOTE | 2022-03-16 02:12 | PC.NURSE ---
RN to bedside for pt biPAP alarming. Pt pulled biPAP off and O2 sats were stable. Pt then pulled off SpO2 monitor and was thrashing in bed. When SpO2 was obtained, it read 36%. BiPAP reapplied and FiO2 increased to 100%. SpO2 returned to 100% and FiO2 titrated back down. Pt lung sounds are now coarse on auscultation. Dr. Vo notified and stat chest xray ordered.
[2022-03-16] MEDS: IPRATROPIUM BR 0.02% INH SOLN 0.5 MG/2.5 ML VIAL INHALATION ×4 (02:22→20:56)
[2022-03-16] MEDS: ALBUTEROL SULFATE NEB 2.5 MG/3 ML INH INHALATION ×4 (02:22→20:56)
[2022-03-16] MEDS: FUROSEMIDE INJ 40 MG/4 ML VIAL IV PUSH (03:32)
[2022-03-16 05:24] LABS: Hematocrit 26.5 % (37.0-47.0); Hemoglobin 8.4 g/dL (12.0-15.0); Immature Platelet Fraction Pct 4.1 % (0.9-11.2); Mean Corpuscular HGB Conc 31.7 g/dl (32-36); Mean Corpuscular Hemoglobin 30.5 pg (26-34); Mean Corpuscular Volume 96.4 fl (80-100); Mean Platelet Volume 11.6 fl (7.4-10.4); Platelet Count Result 94 k/mm3 (150-375); Red Blood Count 2.75 M/mm3 (4.2-5.4); Red Cell Distribution Width 18.5 % (11.5-14.5); White Blood Count 5.6 K/mm3 (4.5-10.0)
[2022-03-16] MEDS: DOXYCYCLINE 100 MG/NS 100 ML 100 MG/100 ML BAG IVPB ×2 (05:25→17:04)
[2022-03-16 05:36] LABS: Anion Gap 9 mmol/L (8-16); Blood Urea Nitrogen 21 mg/dL (7-17); Carbon Dioxide 23 mmol/L (22-30); Chloride 109 mmol/L (98-107); Estimated CRCL calculation 18 ml/min; Estimated Glomerular Filt Rate 24; Glucose 145 mg/dL (65-110); Phosphorus 4.5 mg/dL (2.5-4.5); Potassium 3.6 mmol/L (3.4-5.0); Sodium 141 mmol/L (137-145)
[2022-03-16 08:27] LABS: Glucose Point of Care 143 mg/dl (65-105)
[2022-03-16] MEDS: DEXTROSE 5%/0.9% SOD CHL 1,000 ML 75 ML IV CONT (10:40)
[2022-03-16] MEDS: BRIMONIDINE TARTRATE 0.1% 5 ML OPHTH DROPS 1 DROP EACH EYE (10:41)
[2022-03-16] MEDS: DORZOLAMIDE/TIMOLOL OPHTH SOL 10 ML BOTTLE 1 DROP EACH EYE (10:42)
--- NOTE | 2022-03-16 10:49 | PM.CNPUL ---
Assessment and Plan Assessment and plan (1) Pleural effusion: Code(s): J90 - Pleural effusion, not elsewhere classified Status: Acute (2) Pneumonia: Code(s): J18.9 - Pneumonia, unspecified organism Status: Acute (3) Altered mental status: Code(s): R41.82 - Altered mental status, unspecified Status: Acute (4) Dementia: Code(s): F03.90 - Unspecified dementia, unspecified severity, without behavioral disturbance, psychotic disturbance, mood disturbance, and anxiety Status: Acute (5) Acute hypoxemic respiratory failure: Code(s): J96.01 - Acute respiratory failure with hypoxia Status: Acute Assessment and Plan: this 81-year-old female with acute mental status changes of unclear etiology has had acute respiratory failure for which she is receiving BiPAP support. the patient's respiratory failure is most likely related to congestive heart failure. The patient has had history of chronic pleural effusions bilaterally since December of this year, which in conjunction with the transudative nature of a right pleural effusion evidence of lung congestion on recent chest x-rays, elevated BNP and history of left ventricular diastolic dysfunction with moderate aortic valve stenosis suggest acute respiratory failure related to congestive heart failure. It is unclear whether there is superimposed lower respiratory tract infection. Patient has no leukocytosis and as stated on the last chest x-ray there was no clear-cut evidence of lung infiltrate. Etiology of acute mental status changes is unclear at this point. She has no hypercapnia on recent blood gases. She has been on BiPAP support just for hypoxemia. She has received IV Lasix for possible pulmonary edema. Plan I would switch patient to supplemental oxygen via nasal cannula and repeat blood gases. If there is evidence of hypercapnia I would then continue with BiPAP support. The patient has acute mental status changes and in that setting BiPAP support may not be the right means of ventilatory support as patient cannot protect the airway. I understand the patient is DNR and there is discussion about hospice care. if hospice care is not a choice then I would consider intubating the patient to protect the airway. The patient will need further workup for respiratory failure with a chest CT. In the meantime continue with current antibiotics, gentle diuresis. I would consider DVT prophylaxis only if brain CT is negative given the patient's recent acute mental status changes. History of Present Illness History of Present Illness Consult date: 03/16/22 Chief complaint: UTI/ Pleural Effusion Narrative: this 81-year-old female group home resident presented approximately 1 week ago with a generalized weakness and possible hypoglycemia. Currently the patient is obtunded and unable to provide any information regarding her illness. She has been on BiPAP support for hypoxemia. I was asked to see the patient because of worsening respiratory status. The patient has history of chronic pleural effusions as shown by chest CT in December of this year. That chest CT showed moderate size right pleural effusion is small in 1 on left. When evaluated in the emergency room the patient was on room air and had adequate oxygenation. Initial chest x-rays showed bilateral pleural effusion as before. Five days ago the patient underwent right thoracentesis with removal of fluid of approximately 700 mL. Pleural fluid analysis is most likely consistent with a transudate. The patient has been on antibiotics with ceftriaxone and doxycycline for possible lower respiratory infection. Chest imaging studies raise a question of right lower lobe infiltrate on the x-ray taken 5 days ago but on the last chest x-ray there is no clear-cut infiltrate. On admission her BNP was elevated. Patient has also a history of moderate aortic valve stenosis with valve area of 1.1 sq cm
[2022-03-16] MEDS: FUROSEMIDE INJ 40 MG/4 ML VIAL 20 MG IV PUSH ×2 (12:14→13:23)
[2022-03-16 12:19] LABS: Glucose Point of Care 141 mg/dl (65-105)
--- NOTE | 2022-03-16 12:27 | PC.NURSE ---
To Radiology per hospital bed with CT staff and JEM Lopez at bedside with monitor and storage bin tender. Pt on O2 at 3L via NC.
--- NOTE | 2022-03-16 13:15 | PC.NURSE ---
Pt back from radiology with telemetry, O2 at 3 L and nurse at bedside.
[2022-03-16 14:33] LABS: Alveolar/Arterial O2 Gradient 77.8 mmHg; Base Excess ABG -1.2 mEq/l (+/-2.0); Fractional Inspired Oxygen 30 %; HCO3 ABG 24.7 mEq/l (22.0-26.0); Oxygen Content ABG 12.1 %vol (16.0-22.0); Oxygen Saturation ABG 95.2 % (95.0-100.0); Oxyhemoglobin 93.5 % THb (90.0-100.0); PCO2 ABG 47.1 mmHg (35.0-45.0); PO2 ABG 80.8 mmHg (80.0-100.0); PO2 FiO2 Ratio Arterial Blood 2.69 %; Total Hemoglobin 9.1 g/dL (12.0-18.0); pH ABG 7.338 (7.350-7.450)
[2022-03-16 14:37] LABS: Modified Allen's Test Pass; Site Drawn LEFT RADIAL
[2022-03-16 14:38] LABS: Device BIPAP; Expiratory Pressure 7 cmH2O; Inspiratory Pressure 14 cmH2O
--- NOTE | 2022-03-16 15:23 | PM.IMPN ---
Progress Note: A&P Assessment and Plan (1) Pleural effusion: Code(s): J90 - Pleural effusion, not elsewhere classified Status: Acute Assessment and Plan: EDHPI narrative: Patient 81-year-old female who presents the emergency department with chief complaint of hypoglycemia generalized weakness patient is a resident of a local shelter.? They report that the patient has not been eating and drinking and blood sugars were very low the patient refused to take any oral glucose and refused to let the nursing staff draw blood from her.? The patient also was found to have a pleural effusion on chest x-ray. 03/16/2022 interval history: today patient remains somewhat awake and does respond to verbal instruction, by just looking at you, upon arrival patient was hypoglycemic and being treated with D5 IV fluid, however patient was getting volume over loaded, gave x1 Lasix 20mg IV, will stop fluids, nurse was able to reach her daughter, on 03/09 patient daughter was having colonoscopy and was unable to come to the hospital, chest x-ray showed moderate pleural effusion on right side, unable to do thoracentesis as patient is unable to provide consent and also suspicious for pneumonia patient is being treated with ceftriaxone and doxycycline, her urine is also suspicious for UTI, urine is growing Proteus mirabilis sensitive to ceftriaxone will continue, again patient is not able to provide any review of symptoms patient daughter was here on 03/10 and provided concent for thoracentesis, and patient had it on 03/12 and 1000cc yellow fluid collected, initial labs most likely transudate, on 03/13 patient pulled out her IV she was quite hypoglycemic and somnolent patient was given glucagon and her symptoms improved now patient has IV and being hydrated with D5 normal saline. 03/14 patient was more calmer and her grandson was present in the room, [facility] again I spoke with 1 of the patient's daughter over the phone and recommended to consider hospice with the patient family will discussed with sibling and further recommendation to follow.on 03/15 however during the night patient had episode of hypoxia was seen by parenting skills instructor patient was placed on BiPAP and transferred to IMU, patient had a chest x-ray does show worsening bilateral lower lung atelectasis/consolidation with otherwise stable reticular opacities likely representing interstitial edema, today patient is feeling little better on BIPAP, patient was given Lasix 40mg IV and being diursed, patient is being treated with ceftriaxone and doxycycline for further recommendation will consult river boat captain and further recommendation to follow. (2) Pneumonia: Code(s): J18.9 - Pneumonia, unspecified organism Status: Acute Assessment and Plan: patient is being treated ceftriaxone and azithromycin (3) UTI (urinary tract infection): Code(s): N39.0 - Urinary tract infection, site not specified Status: Acute Assessment and Plan: UA suspicious for UTI with significantly white count being treated with ceftriaxone will follow-up on urine culture. (4) Chronic renal failure, stage 3 (moderate): Code(s): N18.30 - Chronic kidney disease, stage 3 unspecified Status: Acute Assessment and Plan: patient with acute on chronic kidney disease most likely secondary to dehydration as patient p.o. intake is very poor, will monitor. (5) Dementia: Code(s): F03.90 - Unspecified dementia, unspecified severity, without behavioral disturbance, psychotic disturbance, mood disturbance, and anxiety Status: Acute Assessment and Plan: history Ms. Patient has Alzheimer's dementia possibly end stage Subjective Date/time seen: 03/16/22 15:23 03/16/2022 interval history: today patient remains somewhat awake and does respond to verbal instruction, by just looking at you, upon arrival patient was hypoglycemic and being treated with D5 IV fluid, however patient w
[2022-03-16 16:37] LABS: Glucose Point of Care 145 mg/dl (65-105)
[2022-03-16] MEDS: LIDOCAINE 5% PATCH 3 PATCH TRANSDERM (16:38)
[2022-03-16 20:38] LABS: Glucose Point of Care 135 mg/dl (65-105)
[2022-03-16] MEDS: carvediloL 3.125 MG TABLET PO (21:24)
[2022-03-16] MEDS: HALOPERIDOL 0.5 MG TABLET PO (21:25)
[2022-03-16] MEDS: HALOPERIDOL 1 MG TABLET 2 MG PO (21:25)
[2022-03-16] MEDS: FAMOTIDINE 20 MG TABLET PO (21:26)
[2022-03-16] MEDS: buPROPion HCL SR (12HR) 100 MG TABCR PO (21:26)
[2022-03-16] MEDS: hydrALAZINE HCL 20 MG/ML VIAL 10 MG IV PUSH (22:48)
[2022-03-17] VITALS (44 sets, daily range): BP systolic 132–159; BP diastolic 50–65; PULSE 48–74; RESP 11–22; TEMP 32.7–36.6; O2SAT 94–100
[2022-03-17 00:23] LABS: Glucose Point of Care 139 mg/dl (65-105)
[2022-03-17] MEDS: ALBUTEROL SULFATE NEB 2.5 MG/3 ML INH INHALATION ×4 (03:21→20:50)
[2022-03-17] MEDS: IPRATROPIUM BR 0.02% INH SOLN 0.5 MG/2.5 ML VIAL INHALATION ×4 (03:21→20:57)
[2022-03-17] MEDS: DOXYCYCLINE 100 MG/NS 100 ML 100 MG/100 ML BAG IVPB ×2 (05:01→17:01)
[2022-03-17 05:03] LABS: Hematocrit 28.5 % (37.0-47.0); Mean Corpuscular HGB Conc 31.6 g/dl (32-36); Mean Corpuscular Hemoglobin 30.6 pg (26-34); Mean Corpuscular Volume 96.9 fl (80-100); Mean Platelet Volume 11.7 fl (7.4-10.4); Platelet Count Result 109 k/mm3 (150-375); Red Blood Count 2.94 M/mm3 (4.2-5.4); Red Cell Distribution Width 18.5 % (11.5-14.5); White Blood Count 4.6 K/mm3 (4.5-10.0)
[2022-03-17 05:15] LABS: Albumin Level 3.2 g/dL (3.5-5.1); Anion Gap 10 mmol/L (8-16); Blood Urea Nitrogen 27 mg/dL (7-17); Calcium 8.2 mg/dL (8.4-10.2); Carbon Dioxide 25 mmol/L (22-30); Chloride 109 mmol/L (98-107); Estimated CRCL calculation 18 ml/min; Estimated Glomerular Filt Rate 24; Glucose 101 mg/dL (65-110); Magnesium 2.1 mg/dL (1.6-2.3); Phosphorus 4.1 mg/dL (2.5-4.5); Potassium 3.6 mmol/L (3.4-5.0); Sodium 144 mmol/L (137-145)
[2022-03-17 07:45] LABS: Glucose Point of Care 91 mg/dl (65-105)
[2022-03-17] MEDS: LIDOCAINE 5% PATCH 3 PATCH TRANSDERM (08:19)
[2022-03-17] MEDS: DORZOLAMIDE/TIMOLOL OPHTH SOL 10 ML BOTTLE 1 DROP EACH EYE (08:19)
[2022-03-17] MEDS: BRIMONIDINE TARTRATE 0.1% 5 ML OPHTH DROPS 1 DROP EACH EYE (08:20)
--- NOTE | 2022-03-17 10:50 | PM.PNPUL ---
Progress Note: A&P Assessment and Plan (1) Acute hypoxemic respiratory failure: Code(s): J96.01 - Acute respiratory failure with hypoxia Status: Acute Assessment and Plan: this 81-year-old female is currently receiving treatment for respiratory failure. Her main problem is chronic mental status changes related to advanced dementia. brain CT showed no new CVA. Patient has had respiratory failure related to congestive heart failure with recurrent pleural effusions for which she underwent thoracentesis twice, and also related to retention of bronchial secretions as patient is obtunded. she has been on antibiotics for possible lower respiratory tract infection. Her respiratory status has not changed. Her BiPAP support was started primarily for hypoxemia although the blood gases yesterday showed mild elevation of carbon dioxide pCO2. patient's prognosis i is poor given the advanced dementia. Had a lengthy discussion with the patient's daughter regarding further management. I explained to the patient's daughter that she will most likely remain hospitalized or require frequent hospitalizations for not only respiratory failure but also for congestive heart failure, renal failure, and possible severe bacterial infections given the severity of mental status. Under different circumstances, tracheostomy would be an option to prevent recurrent respiratory infections but not for this patient. I suggested hospice care but the daughter needed time to discuss it with other family members. Plan: continue supportive care at this point, switch patient to nasal cannula and repeat arterial blood gases. Case was also discussed with the hospitalist. (2) Dementia: Code(s): F03.90 - Unspecified dementia, unspecified severity, without behavioral disturbance, psychotic disturbance, mood disturbance, and anxiety Status: Acute (3) Acute kidney injury: Code(s): N17.9 - Acute kidney failure, unspecified Status: Acute (4) Altered mental status: Code(s): R41.82 - Altered mental status, unspecified Status: Acute (5) Chronic renal failure, stage 3 (moderate): Code(s): N18.30 - Chronic kidney disease, stage 3 unspecified Status: Acute (6) Chronic diastolic heart failure: Code(s): I50.32 - Chronic diastolic (congestive) heart failure Status: Acute (7) Pleural effusion: Code(s): J90 - Pleural effusion, not elsewhere classified Status: Acute Subjective Date/time seen: 03/17/22 10:50 Essentially no change in patient's condition. Patient remains obtunded, opening eyes to verbal commands. Not answering questions. She remains on BiPAP support. Daughter at the bedside. Underwent head CT yesterday. Review of Systems Review of Systems: ROS unobtainable: Yes unobtainable due to medical condition Exam Narrative: GENERAL APPEARANCE: Well developed, well nourished, elderly female on BiPAP support. Patient not answering verbal commands. SKIN: Inspection of the skin reveals no rashes, ulcerations or petechiae. HEENT: Sclerae anicteric and conjunctivae pink and moist. Pupils unequal bilaterally due right eye surgery. NECK: Supple. There was no thyroid enlargement. CHEST: Normal AP diameter and normal contour without any kyphoscoliosis. LUNGS: Auscultation of the lungs revealed crackles bilaterally no wheezing CARDIAC: There was a regular rate and rhythm 2/6 systolic ejection murmur at apex ABDOMEN: Soft and with normal bowel sounds. There was no organomegaly. LYMPH NODES: No lymphadenopathy was appreciated in the neck. EXTREMITIES: No cyanosis, clubbing or edema. NEUROLOGIC: patient is obtunded moving upper extremities to verbal commands and also opening eyes. Objective Data Vital Signs Vital Signs: Vital Signs - 24 hr 03/16/22 12:32 03/16/22 14:00 03/16/22 14:10 Temperature 35.7 C L Pulse Rate 51 L 63 65 Respiratory Rate 24 H 24 H 24 H Blood Pressure
[2022-03-17 13:19] LABS: Glucose Point of Care 84 mg/dl (65-105)
--- NOTE | 2022-03-17 14:04 | PC.NURSE ---
Dr. Oleary notified of patient's bradycardia episode into the 30's around 1230. Pt's heart rate has remained in the 40's since then. Pt is asymptomatic and sleeping in bed on 8L HFNC. New order for 0.4mg IVP Atropine x1.
--- NOTE | 2022-03-17 14:25 | PC.NURSE ---
This RN entered room to administer medication, and found the pt with O2 out of her nose. O2 sats of 100%. RN left patient on RA and will continue to monitor
[2022-03-17] MEDS: ATROPINE SULFATE 1 MG/10 ML SYRINGE 0.4 MG IV PUSH (14:29)
[2022-03-17 16:33] LABS: Glucose Point of Care 119 mg/dl (65-105)
--- NOTE | 2022-03-17 16:43 | PM.IMPN ---
Progress Note: A&P Assessment and Plan (1) Pleural effusion: Code(s): J90 - Pleural effusion, not elsewhere classified Status: Acute Assessment and Plan: EDHPI narrative: Patient 81-year-old female who presents the emergency department with chief complaint of hypoglycemia generalized weakness patient is a resident of a local jail.? They report that the patient has not been eating and drinking and blood sugars were very low the patient refused to take any oral glucose and refused to let the nursing staff draw blood from her.? The patient also was found to have a pleural effusion on chest x-ray. 03/17/2022 interval history: today patient remains somewhat awake and does respond to verbal instruction, by just looking at you, upon arrival patient was hypoglycemic and being treated with D5 IV fluid, however patient was getting volume over loaded, gave x1 Lasix 20mg IV, will stop fluids, nurse was able to reach her daughter, on 03/09 patient daughter was having colonoscopy and was unable to come to the hospital, chest x-ray showed moderate pleural effusion on right side, unable to do thoracentesis as patient is unable to provide consent and also suspicious for pneumonia patient is being treated with ceftriaxone and doxycycline, her urine is also suspicious for UTI, urine is growing Proteus mirabilis sensitive to ceftriaxone will continue, again patient is not able to provide any review of symptoms patient daughter was here on 03/10 and provided concent for thoracentesis, and patient had it on 03/12 and 1000cc yellow fluid collected, initial labs most likely transudate, on 03/13 patient pulled out her IV she was quite hypoglycemic and somnolent patient was given glucagon and her symptoms improved now patient has IV and being hydrated with D5 normal saline. 03/14 patient was more calmer and her grandson was present in the room, [facility] again I spoke with 1 of the patient's daughter over the phone and recommended to consider hospice with the patient family will discussed with sibling and further recommendation to follow.on 03/15 however during the night patient had episode of hypoxia was seen by service coordinator elderly facility patient was placed on BiPAP and transferred to IMU, patient had a chest x-ray does show worsening bilateral lower lung atelectasis/consolidation with otherwise stable reticular opacities likely representing interstitial edema, today patient is feeling little better on BIPAP, patient was given Lasix 40mg IV and being diursed, patient is being treated with ceftriaxone and doxycycline for further recommendation, patient was seen by felt hat inspector and packer and further recommendation to follow. on 03/16 I spoke with the patient 2 daughter and son, recommended hospice care for the patient, and again today I spoke with 1 of the daughter who is POA, the discussing among family for hospice, will decide soon and further recommendation to follow. (2) Pneumonia: Code(s): J18.9 - Pneumonia, unspecified organism Status: Acute Assessment and Plan: patient is being treated ceftriaxone and azithromycin (3) UTI (urinary tract infection): Code(s): N39.0 - Urinary tract infection, site not specified Status: Acute Assessment and Plan: UA suspicious for UTI with significantly white count being treated with ceftriaxone will follow-up on urine culture. (4) Chronic renal failure, stage 3 (moderate): Code(s): N18.30 - Chronic kidney disease, stage 3 unspecified Status: Acute Assessment and Plan: patient with acute on chronic kidney disease most likely secondary to dehydration as patient p.o. intake is very poor, will monitor. (5) Dementia: Code(s): F03.90 - Unspecified dementia, unspecified severity, without behavioral disturbance, psychotic disturbance, mood disturbance, and anxiety Status: Acute Assessment and Plan: history Ms. Patient has Alzheimer's dementia possibly end stage Subjec
[2022-03-17] MEDS: SODIUM BICARBONATE TAB 325 MG TABLET PO (17:01)
[2022-03-17] MEDS: ACETAMINOPHEN ELIXIR 325 MG/10.15 ML UDC 650 MG PO (18:25)
[2022-03-17 20:25] LABS: Glucose Point of Care 134 mg/dl (65-105)
[2022-03-17] MEDS: HALOPERIDOL 1 MG TABLET 2 MG PO (23:06)
[2022-03-17] MEDS: HALOPERIDOL 0.5 MG TABLET PO (23:06)
[2022-03-17] MEDS: FAMOTIDINE 20 MG TABLET PO (23:06)
[2022-03-17] MEDS: carvediloL 3.125 MG TABLET PO (23:06)
[2022-03-17] MEDS: buPROPion HCL SR (12HR) 100 MG TABCR PO (23:06)
[2022-03-17 23:19] LABS: Glucose Point of Care 83 mg/dl (65-105)
[2022-03-18] VITALS (24 sets, daily range): BP systolic 117–174; BP diastolic 46–88; PULSE 54–79; RESP 14–99; TEMP 35.6–36.6; O2SAT 96–100
--- NOTE | 2022-03-18 01:10 | PC.NURSE ---
Daylight Savings Time For Daylight Savings Time Ending in the Fall - Clocks are moved back. For Daylight Savings Time Beginning in the Spring - Clocks are moved ahead. For [facility], the time of change occurs at 0200 hrs. Time is taken from the pershing missile crewmember. This entry on the patient's chart recognizes the change in time reflected during documentation. Example: 2 entries for vital signs may be charted for 0200 hrs.
[2022-03-18] MEDS: ALBUTEROL SULFATE NEB 2.5 MG/3 ML INH INHALATION ×4 (03:47→20:48)
[2022-03-18] MEDS: IPRATROPIUM BR 0.02% INH SOLN 0.5 MG/2.5 ML VIAL INHALATION ×4 (03:48→20:49)
[2022-03-18 04:59] LABS: Glucose Point of Care 75 mg/dl (65-105)
[2022-03-18] MEDS: DOXYCYCLINE 100 MG/NS 100 ML 100 MG/100 ML BAG IVPB (05:41)
[2022-03-18 07:58] LABS: Glucose Point of Care 76 mg/dl (65-105)
[2022-03-18] MEDS: BENZTROPINE MESYLATE 1 MG TABLET PO (09:23)
[2022-03-18] MEDS: amLODIPine BESYLATE 5 MG TABLET 10 MG PO (09:23)
[2022-03-18] MEDS: DORZOLAMIDE/TIMOLOL OPHTH SOL 10 ML BOTTLE 1 DROP EACH EYE (09:23)
[2022-03-18] MEDS: buPROPion HCL SR (12HR) 100 MG TABCR PO ×2 (09:24→20:10)
[2022-03-18] MEDS: SODIUM BICARBONATE TAB 325 MG TABLET PO ×2 (09:24→17:32)
[2022-03-18] MEDS: carvediloL 3.125 MG TABLET PO ×2 (09:24→20:10)
[2022-03-18] MEDS: PRAVASTATIN SODIUM 20 MG TABLET PO (09:24)
[2022-03-18] MEDS: FAMOTIDINE 20 MG TABLET PO ×2 (09:24→20:10)
[2022-03-18] MEDS: LIDOCAINE 5% PATCH 3 PATCH TRANSDERM (09:24)
[2022-03-18 11:37] LABS: Albumin Pleural Fluid 1.6 g/dL
[2022-03-18 11:52] LABS: Glucose Point of Care 80 mg/dl (65-105)
--- NOTE | 2022-03-18 12:27 | PM.IMPN ---
Progress Note: A&P Assessment and Plan (1) Pleural effusion: Code(s): J90 - Pleural effusion, not elsewhere classified Status: Acute Assessment and Plan: Likely due to CHF, diastolic, with moderately severe aortic stenosis and moderately severe mitral insufficiency. Improved BiPAP diuresis No longer BiPAP dependent POA would like patient to remain IMU until her siblings have the opportunity to see her tomorrow and discuss end of life decisions (2) Acute on chronic diastolic (congestive) heart failure: Code(s): I50.33 - Acute on chronic diastolic (congestive) heart failure Status: Acute Assessment and Plan: March 18 additional dose of furosemide (3) Mitral insufficiency and aortic stenosis: Code(s): I08.0 - Rheumatic disorders of both mitral and aortic valves Status: Acute Assessment and Plan: Discussed with POA the patient is not a candidate for cardiac surgery (4) UTI (urinary tract infection): Code(s): N39.0 - Urinary tract infection, site not specified Status: Acute Assessment and Plan: Discontinue ceftriaxone as one-week therapy completed. (5) Chronic renal failure, stage 3 (moderate): Code(s): N18.30 - Chronic kidney disease, stage 3 unspecified Status: Acute Assessment and Plan: Acute on chronic end-stage for now Likely related to pulmonary edema and acute on chronic diastolic heart failure (6) Dementia: Code(s): F03.90 - Unspecified dementia, unspecified severity, without behavioral disturbance, psychotic disturbance, mood disturbance, and anxiety Status: Acute Assessment and Plan: [place] resident for about 2 years Last walked with walker about 2 weeks prior to admission, used w/c most of time Appetite has been declining with some coughing noted while eating Hx of Alzheimer dementia with recent increased time sleepin and decreased appetite and increased w/c dependence (7) Acute hypoxemic respiratory failure: Code(s): J96.01 - Acute respiratory failure with hypoxia Status: Acute Assessment and Plan: Resolved but at risk for recurrence due to cardiac issues and high risk for aspiration Subjective Date/time seen: 03/18/22 12:27 Remains comfortable. Poor p.o. intake. Review of Systems Review of Systems: ROS unobtainable: Yes unobtainable due to medical condition Exam Narrative: Chronically ill-appearing elderly female lying comfortably hospital bed. Intermittently awakens and responds to name. Appears to be oriented to person only. Occasionally utters monosyllabic responses. Sclerae nonicteric. Frenchie goes of moist. Neck without JVD. Chest mild crackles right lower lobe. Diminished breath sounds bilateral bases left worse than right. Heart normal S1-S2 regular rate 3/6 RUSB LELO & 3/6 holosystolic murmur at the apex radiating to the axilla. Extremities without edema cyanosis or clubbing. Abdomen soft good bowel sounds nontender organomegaly. Musculoskeletal no deformity to visual inspection. Neurologic cranial nerves symmetric to visual inspection. Moves all extremities. Generalized weakness with muscle wasting. Objective Data Vital Signs Vital Signs: Vital Signs - 24 hr 03/17/22 13:46 03/17/22 14:00 03/17/22 16:44 Temperature 95.6 F L Pulse Rate 48 L 54 L Respiratory Rate 21 H Blood Pressure 132/50 L Pulse Oximetry 100 99 Oxygen Delivery High Flow Nasal Cannula Oxygen Flow Rate 8 03/17/22 13:42 03/17/22 13:52 03/17/22 16:00 Temperature Pulse Rate 52 L 55 L Respiratory Rate 20 22 H Blood Pressure Pulse Oximetry 100 Oxygen Delivery Room Air Oxygen Flow Rate 03/17/22 14:25 03/17/22 16:00 03/17/22 18:00 Temperature Pulse Rate 52 L 54 L Respiratory Rate Blood Pressure Pulse Oximetry 100 Oxygen Delivery Room Air Oxygen Flow Rate 03/17/22 19:10 03/17/22 19:11 03/17/22 20:00 Temperature 91.3 F L 91.3 F L
[2022-03-18] MEDS: BRIMONIDINE TARTRATE 0.1% 5 ML OPHTH DROPS 1 DROP EACH EYE (12:35)
[2022-03-18] MEDS: FUROSEMIDE INJ 40 MG/4 ML VIAL IV PUSH (13:40)
[2022-03-18 16:29] LABS: Glucose Point of Care 89 mg/dl (65-105)
[2022-03-18] MEDS: HALOPERIDOL 0.5 MG TABLET PO (20:11)
[2022-03-18] MEDS: HALOPERIDOL 1 MG TABLET 2 MG PO (20:11)
[2022-03-18 20:15] LABS: Glucose Point of Care 78 mg/dl (65-105)
[2022-03-19] VITALS (20 sets, daily range): BP systolic 134–176; BP diastolic 48–63; PULSE 46–66; RESP 12–20; TEMP 35.7–36.1; O2SAT 99–100
[2022-03-19] MEDS: IPRATROPIUM BR 0.02% INH SOLN 0.5 MG/2.5 ML VIAL INHALATION ×4 (03:00→20:37)
[2022-03-19] MEDS: ALBUTEROL SULFATE NEB 2.5 MG/3 ML INH INHALATION ×4 (03:00→20:37)
[2022-03-19 05:23] LABS: Hematocrit 23.1 % (37.0-47.0); Mean Corpuscular HGB Conc 30.3 g/dl (32-36); Mean Corpuscular Hemoglobin 30.2 pg (26-34); Mean Corpuscular Volume 99.6 fl (80-100); Mean Platelet Volume 11.1 fl (7.4-10.4); Platelet Count Result 122 k/mm3 (150-375); Red Blood Count 2.32 M/mm3 (4.2-5.4); Red Cell Distribution Width 18.2 % (11.5-14.5); White Blood Count 2.8 K/mm3 (4.5-10.0)
[2022-03-19 05:33] LABS: Albumin Level 2.7 g/dL (3.5-5.1); Anion Gap 13 mmol/L (8-16); Blood Urea Nitrogen 31 mg/dL (7-17); Calcium 7.9 mg/dL (8.4-10.2); Carbon Dioxide 25 mmol/L (22-30); Chloride 111 mmol/L (98-107); Estimated CRCL calculation 19 ml/min; Estimated Glomerular Filt Rate 26; Glucose 66 mg/dL (65-110); Phosphorus 2.8 mg/dL (2.5-4.5); Sodium 149 mmol/L (137-145)
[2022-03-19] MEDS: DORZOLAMIDE/TIMOLOL OPHTH SOL 10 ML BOTTLE 1 DROP EACH EYE (08:03)
[2022-03-19] MEDS: BRIMONIDINE TARTRATE 0.1% 5 ML OPHTH DROPS 1 DROP EACH EYE (08:04)
[2022-03-19] MEDS: BENZTROPINE MESYLATE 1 MG TABLET PO (08:05)
[2022-03-19] MEDS: PRAVASTATIN SODIUM 20 MG TABLET PO (08:05)
[2022-03-19] MEDS: FERROUS GLUCONATE 324 MG TABLET PO (08:05)
[2022-03-19] MEDS: carvediloL 3.125 MG TABLET PO ×2 (08:05→20:25)
[2022-03-19] MEDS: buPROPion HCL SR (12HR) 100 MG TABCR PO ×2 (08:05→20:25)
[2022-03-19] MEDS: amLODIPine BESYLATE 5 MG TABLET 10 MG PO (08:05)
[2022-03-19] MEDS: SODIUM BICARBONATE TAB 325 MG TABLET PO ×2 (08:05→16:50)
[2022-03-19] MEDS: FAMOTIDINE 20 MG TABLET PO ×2 (08:05→20:25)
[2022-03-19] MEDS: LIDOCAINE 5% PATCH 3 PATCH TRANSDERM (08:07)
[2022-03-19] MEDS: hydrALAZINE HCL 20 MG/ML VIAL 10 MG IV PUSH (12:02)
--- NOTE | 2022-03-19 13:44 | PCNFU ---
Nutrition Follow-Up Complete: Severe malnutrition based on acute medical condition, as evidenced by NPPV, weight loss -9%/4 months, minimal PO intake >5 days/ Goal: Meet nutrition needs - Not meeting goal Pt current nutrition is Full liquid diet. Nutrition recommendation: Continue with full liquid diet as tolerated Last recorded weight is 77.4 kg. Bowel Motility: No BM charted Labs Reviewed: Hgb 7.0, Hct 23.1, Alb 2.7, Na 149, K+ 3.0, eGFR 26, BUN 31, Creat 2.2 Meds Noted: Amlodopine, carvedilol Skin: WNL Additional Notes: Awaiting hospice decision from family. Average intakes about 15% full liquids. Labs indicate possible free water deficit. Tube feeding is not recommended at this point due to condition. Following for any needed recommendations Monitor plan of care, discharge plans, feeding, weights, labs. Follow up in 3 days.
--- NOTE | 2022-03-19 16:01 | PM.IMPN ---
Progress Note: A&P Assessment and Plan (1) Pleural effusion: Code(s): J90 - Pleural effusion, not elsewhere classified Status: Acute Assessment and Plan: Likely due to CHF, diastolic, with moderately severe aortic stenosis and moderately severe mitral insufficiency. Improved BiPAP diuresis No longer BiPAP dependent hospice agency coming today to talk to the family about hospice options (2) Acute on chronic diastolic (congestive) heart failure: Code(s): I50.33 - Acute on chronic diastolic (congestive) heart failure Status: Acute Assessment and Plan: continue Coreg (3) Mitral insufficiency and aortic stenosis: Code(s): I08.0 - Rheumatic disorders of both mitral and aortic valves Status: Acute Assessment and Plan: Discussed with POA the patient is not a candidate for cardiac surgery (4) UTI (urinary tract infection): Code(s): N39.0 - Urinary tract infection, site not specified Status: Acute Assessment and Plan: Discontinue ceftriaxone as one-week therapy completed. (5) Chronic renal failure, stage 3 (moderate): Code(s): N18.30 - Chronic kidney disease, stage 3 unspecified Status: Acute Assessment and Plan: Acute on chronic end-stage for now Likely related to pulmonary edema and acute on chronic diastolic heart failure (6) Dementia: Code(s): F03.90 - Unspecified dementia, unspecified severity, without behavioral disturbance, psychotic disturbance, mood disturbance, and anxiety Status: Acute Assessment and Plan: [place] resident for about 2 years Last walked with walker about 2 weeks prior to admission, used w/c most of time Appetite has been declining with some coughing noted while eating Hx of Alzheimer dementia with recent increased time sleepin and decreased appetite and increased w/c dependence (7) Acute hypoxemic respiratory failure: Code(s): J96.01 - Acute respiratory failure with hypoxia Status: Acute Assessment and Plan: Resolved but at risk for recurrence due to cardiac issues and high risk for aspiration Plan possible comfort care. Family still deciding Subjective Date/time seen: 03/19/22 16:01 no new issues overnight Review of Systems Review of Systems: ROS unobtainable: Yes unobtainable due to medical condition Exam Narrative: Chronically ill-appearing elderly female lying comfortably hospital bed. Intermittently awakens and responds to name. Appears to be oriented to person only. Occasionally utters monosyllabic responses. Sclerae nonicteric. Frenchie goes of moist. Neck without JVD. Chest mild crackles right lower lobe. Diminished breath sounds bilateral bases left worse than right. Heart normal S1-S2 regular rate 3/6 RUSB LELO & 3/6 holosystolic murmur at the apex radiating to the axilla. Extremities without edema cyanosis or clubbing. Abdomen soft good bowel sounds nontender organomegaly. Musculoskeletal no deformity to visual inspection. Neurologic cranial nerves symmetric to visual inspection. Moves all extremities. Generalized weakness with muscle wasting. Objective Data Vital Signs Vital Signs: Vital Signs - 24 hr 03/18/22 17:45 03/18/22 18:04 03/18/22 18:04 Temperature 96.3 F L Pulse Rate Respiratory Rate Blood Pressure Pulse Oximetry 100 Oxygen Delivery Room Air Fraction of Inspired Oxygen 03/18/22 20:10 03/18/22 20:00 03/18/22 20:51 Temperature 97.0 F L Pulse Rate 60 64 Respiratory Rate 99 H Blood Pressure 158/55 H Pulse Oximetry 99 100 Oxygen Delivery Room Air Fraction of Inspired Oxygen 03/18/22 20:51 03/18/22 20:00 03/18/22 20:00 Temperature Pulse Rate 54 L 61 61 Respiratory Rate 18 18 Blood Pressure Pulse Oximetry 100 Oxygen Delivery Room Air Fraction of Inspired Oxygen 30 03/18/22 22:00 03/18/22 23:54 03/19/22 00:00 Temperature 96.6 F L Pulse Rate 56 L 55 L 55 L Respiratory
[2022-03-19] MEDS: HALOPERIDOL 1 MG TABLET 2 MG PO (20:25)
[2022-03-19] MEDS: HALOPERIDOL 0.5 MG TABLET PO (20:25)
[2022-03-20] VITALS (16 sets, daily range): BP systolic 141–186; BP diastolic 49–87; PULSE 53–84; RESP 14–20; TEMP 36–37.2; O2SAT 99–100
[2022-03-20] MEDS: ALBUTEROL SULFATE NEB 2.5 MG/3 ML INH INHALATION ×2 (02:21→08:25)
[2022-03-20] MEDS: IPRATROPIUM BR 0.02% INH SOLN 0.5 MG/2.5 ML VIAL INHALATION ×2 (02:21→08:25)
[2022-03-20] MEDS: amLODIPine BESYLATE 5 MG TABLET 10 MG PO (10:00)
[2022-03-20] MEDS: BENZTROPINE MESYLATE 1 MG TABLET PO (10:07)
[2022-03-20] MEDS: PRAVASTATIN SODIUM 20 MG TABLET PO (10:08)
[2022-03-20] MEDS: FAMOTIDINE 20 MG TABLET PO (10:08)
[2022-03-20] MEDS: carvediloL 3.125 MG TABLET PO (10:08)
[2022-03-20] MEDS: buPROPion HCL SR (12HR) 100 MG TABCR PO (10:08)
[2022-03-20] MEDS: SODIUM BICARBONATE TAB 325 MG TABLET PO (10:08)
[2022-03-20] MEDS: BRIMONIDINE TARTRATE 0.1% 5 ML OPHTH DROPS 1 DROP EACH EYE (10:08)
[2022-03-20] MEDS: DORZOLAMIDE/TIMOLOL OPHTH SOL 10 ML BOTTLE 1 DROP EACH EYE (10:08)
[2022-03-20] MEDS: LIDOCAINE 5% PATCH 3 PATCH TRANSDERM (10:08)
--- NOTE | 2022-03-20 11:11 | PM.DS ---
DS: Admitting Diagnosis Discharge Date 03/20/2022 Admitting Diagnosis pleural effusion DS: Summary Hospital Course Hospital Course: (1) Pleural effusion: Likely due to CHF, diastolic, with moderately severe aortic stenosis and moderately severe mitral insufficiency. Improved BiPAP diuresis No longer BiPAP dependent (2) Acute on chronic diastolic (congestive) heart failure: March 18 additional dose of furosemide (3) Mitral insufficiency and aortic stenosis: Rheumatic disorders of both mitral and aortic valves Discussed with POA the patient is not a candidate for cardiac surgery (4) UTI (urinary tract infection): Discontinue ceftriaxone as one-week therapy completed. (5) Chronic renal failure, stage 3 (moderate): Acute on chronic end-stage for now Likely related to pulmonary edema and acute on chronic diastolic heart failure (6) Dementia: [place] resident for about 2 years Last walked with walker about 2 weeks prior to admission, used w/c most of time Appetite has been declining with some coughing noted while eating Hx of Alzheimer dementia with recent increased time sleepin and decreased appetite and increased w/c dependence (7) Acute hypoxemic respiratory failure: Resolved but at risk for recurrence due to cardiac issues and high risk for aspiration family opted to make the patient comfort care. Patient is being discharged back to facility with comfort care orders. Time Spent with Patient Time attestation: Total time spent providing and/or coordinating discharge services: Exam Narrative: Chronically ill-appearing elderly female lying comfortably hospital bed. Intermittently awakens and responds to name. Appears to be oriented to person only. Occasionally utters monosyllabic responses. Sclerae nonicteric. Frenchie goes of moist. Neck without JVD. Chest mild crackles right lower lobe. Diminished breath sounds bilateral bases left worse than right. Heart normal S1-S2 regular rate 3/6 RUSB LELO & 3/6 holosystolic murmur at the apex radiating to the axilla. Extremities without edema cyanosis or clubbing. Abdomen soft good bowel sounds nontender organomegaly. Musculoskeletal no deformity to visual inspection. Neurologic cranial nerves symmetric to visual inspection. Moves all extremities. Generalized weakness with muscle wasting. DS: Data Data Completed and Pending Labs on day of discharge: Preliminary micro results at discharge 03/12/22 12:04 Fungal Culture - Preliminary Pleural Fluid 03/12/22 12:04 Acid Fast Bacilli Culture - Preliminary Pleural Fluid Discharge Plan Discharge Consulting providers: Beny Garcia Discharging Clinician: Gray Anthony Anticipated Discharge Date/Time: 03/20/22 08:01 Patient Disposition: Hospice - Medical Facility Activity: may shower Diet: as tolerated Patient Instructions: Heart Failure (DC) Stand Alone Forms: General Discharge Information Follow-up/Referrals: Sanjay,Tori Browning MD [Primary Care Provider] - Discharge Medications: Continued ondansetron HCl 4 mg tablet 4 mg PO Q6H PRN (Reason: Nausea And Vomiting) famotidine 20 mg tablet 20 mg PO BID dorzolamide-timolol 22.3-6.8 mg/mL drops 1 drp EACH EYE DAILY Rx Instructions: 1 drop both eyes daily Alphagan P 0.1 % drops 1 drp EACH EYE DAILY polyethylene glycol 3350 [Miralax] 17 gram Powder In Packet 17 g PO DAILY PRN (Reason: Constipation) alum-mag hydroxide-simeth [Maalox Advanced] 200-200-20 mg/5 mL Suspension 20 ml PO Q6H PRN (Reason: Heartburn) Benadryl Itch Stopping 1-0.1 % Cream 1 applic topical QID PRN (Reason: Itching) 30 Days Qty: 28.3 0RF Changed haloperidol 5 mg tablet 2.5 mg PO QID PRN (Reason: Anxiety) 30 Days Qty: 15 0RF Discontinued carvedilol 3.125 mg tablet 1 tablet PO BID benztropine 1 mg tablet 1 mg PO DAILY pravastatin 20 mg tablet 20 mg PO DAILY bupropion HCl [Wellbutrin
--- NOTE | 2022-03-20 13:15 | PC.NURSE ---
report on pt called to [facility]. notified facility and [facility] of pt departure via ambulance. discharge instructions faxed to facility
== END 2022-03-20 13:20 | disposition hospice, home (50) | DRG 291 ==
LOC: ANHED 04:01 → ANH3MEDSUR 06:15 → ANHIMU 03-14 22:17
PROVIDERS: Family Medicine; Internal Medicine; Nurse Practitioner; Admitting Provider Internal Medicine; Emergency Provider Emergency Medicine; PCP Internal Medicine; Visit Provider Hospitalist
DX: I13.0 Hypertensive heart and chronic kidney disease with heart failure and stage 1 through stage 4 chronic kidney disease, or unspecified chronic kidney disease (principal); I50.33 Acute on chronic diastolic (congestive) heart failure; J18.9 Pneumonia, unspecified organism; J96.01 Acute respiratory failure with hypoxia; N39.0 Urinary tract infection, site not specified; J91.8 Pleural effusion in other conditions classified elsewhere; N17.9 Acute kidney failure, unspecified; N18.30 Chronic kidney disease, stage 3 unspecified; E78.5 Hyperlipidemia, unspecified; K21.9 Gastro-esophageal reflux disease without esophagitis; Z20.822 Contact with and (suspected) exposure to COVID-19; G30.9 Alzheimer's disease, unspecified; F02.80 Dementia in other diseases classified elsewhere, unspecified severity, without behavioral disturbance, psychotic disturbance, mood disturbance, and anxiety; E16.2 Hypoglycemia, unspecified; E86.0 Dehydration; R63.0 Anorexia; I08.0 Rheumatic disorders of both mitral and aortic valves; Z68.28 Body mass index [BMI] 28.0-28.9, adult; Z83.3 Family history of diabetes mellitus; Z82.49 Family history of ischemic heart disease and other diseases of the circulatory system; Z80.1 Family history of malignant neoplasm of trachea, bronchus and lung; Z66 Do not resuscitate; Z88.2 Allergy status to sulfonamides; Z79.899 Other long term (current) drug therapy; B96.4 Proteus (mirabilis) (morganii) as the cause of diseases classified elsewhere
CPT/HCPCS: 32555; 36415; 36569; 36600; 51701; 70450; 71045; 80053; 80069; 81001; 82040; 82042; 82375; 82805; 82947; 82948; 83050; 83605; 83615; 83735; 83880; 83986; 84155; 84157; 85025; 85027; 85055; 85610; 87015; 87070; 87075; 87077; 87086; 87088; 87102; 87116; 87186; 87205; 87206; 89051; 93005; 94002; 94003; 94640; 94660; 96361; 96365; 96366; 96375; 96376; 99285; A9270; C1751; G0378; J0131; J0360; J0461; J0696; J1610; J1630; J1940; J2060; J3475; J7030; J7042; J7070; U0003; U0005